=== PATIENT | male | born 1965 | race Caucasian/White ===

== ENCOUNTER 2018-02-13 13:56 | Outpatient (CLI) | payer OTHER | END 2018-02-13 13:57 | disposition home or self-care (01) | LOC: BICRAD 13:56 | PROVIDERS: ATTEND Internal Medicine | DX: Z02.71 Encounter for disability determination (principal) ==

== ENCOUNTER 2018-03-24 13:50 | Emergency (ER) | payer OTHER, SELFPAY ==
[2018-03-24 14:42] LABS: #Basophils 0.1 thou/uL (0.0-0.2); #Eosinphils 0.3 thou/uL (0.0-0.7); #Lymphocytes 1.8 thou/uL (1.20-3.40); #Monocytes 0.7 thou/uL (0.11-0.59); #Neutrophils 4.3 thou/uL (1.40-6.50); %Eosinophils 4.5 % (0.0-10.0); %Lymphocytes 24.9 % (21.0-51.0); %Monocytes 9.7 % (0.0-10.0); %Neutrophils 59.9 % (42.0-75.0); Hemoglobin 14.4 g/dL (14.0-18.0); Mean Corpuscular HGB CONC 31.6 g/dL (32.0-36.0); Mean Corpuscular Hemoglobin 29.3 pg (27.0-31.0); Mean Corpuscular Volume 92.8 fl (80.0-94.0); Platelet Count 208 thou/uL (130-400); RBC Distribution Width 13.6 % (11.5-14.5); White Blood Cell (WBC) Count 7.1 thou/uL (4.8-10.8)
[2018-03-24 15:06] LABS: ALT (SGPT) 15 U/L (8-55); AST (SGOT) 22 U/L (5-34); Albumin 3.7 g/dL (3.5-5.0); Alkaline Phosphatase 64 U/L (40-150); Anion Gap 12 mmol/L (10-20); BUN (Urea Nitrogen) 14 mg/dL (8.4-25.7); CK (CPK) 53 U/L (30-200); Calc. Creatinine Clearance 0 mL/min (70-130); Calcium 8.8 mg/dL (7.8-10.44); Carbon Dioxide 22 mmol/L (22-29); Chloride 106 mmol/L (98-107); Estimated GFR-MDRD 82; Globulin 2.6 g/dL (2.4-3.5); Glucose 78 mg/dL (70-105); Potassium 4.7 mmol/L (3.5-5.1); Protein, Total 6.3 g/dL (6.0-8.3); Sodium 135 mmol/L (136-145)
[2018-03-24 15:11] LABS: CKMB 0.4 ng/mL (0-6.6)
--- NOTE | 2018-03-24 15:15 | RAD ---
AP CHEST: Indication: History of fluid overload and shortness of breath. FINDINGS: There is cardiomegaly without pulmonary vascular congestion. No pleural effusion is evident. No acute osseous abnormality is evident. IMPRESSION: Stable cardiomegaly. No overt evidence to suggest volume overload or CHF. POS: [facility]
--- NOTE | 2018-03-24 15:20 | ULT ---
RIGHT LOWER EXTREMITY DOPPLER VENOUS ULTRASOUND: Date: 03/24/18 INDICATION: Pain and edema in the right lower extremity for 2 months. TECHNIQUE: Castro scale, color Doppler, and vascular duplex with spectral analysis was performed of the deep venou s structures of the right lower extremity. The common femoral vein, superficial femoral vein, proxima l greater saphenous vein, proximal greater profunda vein, popliteal, and posterior tibial veins were assessed. FINDINGS: Normal compression, flow, and augmentation was seen within the deep venous structures of the right lo wer extremity. IMPRESSION: No evidence of deep venous thrombosis within the right lower extremity. POS: [facility]
[2018-03-24 16:08] LABS: Troponin I Less than 0.010 ng/mL (< 0.028)
== END 2018-03-24 16:55 | disposition home or self-care (01) ==
LOC: ERS 13:50
DX: L03.115 Cellulitis of right lower limb (principal); I10 Essential (primary) hypertension; F17.220 Nicotine dependence, chewing tobacco, uncomplicated; Z71.6 Tobacco abuse counseling
CPT/HCPCS: 36415; 71045; 80053; 82553; 83880; 84484; 85025; 93005; 99406

== ENCOUNTER 2018-05-27 17:16 | Emergency (ER) | payer SELFPAY ==
[2018-05-27 19:00] LABS: #Basophils 0.1 thou/uL (0.0-0.2); #Eosinphils 0.3 thou/uL (0.0-0.7); #Lymphocytes 1.8 thou/uL (1.20-3.40); #Monocytes 0.7 thou/uL (0.11-0.59); #Neutrophils 3.9 thou/uL (1.40-6.50); %Eosinophils 4.3 % (0.0-10.0); %Lymphocytes 26.7 % (21.0-51.0); %Monocytes 10.7 % (0.0-10.0); %Neutrophils 57.3 % (42.0-75.0); Hemoglobin 14.6 g/dL (14.0-18.0); Mean Corpuscular HGB CONC 33.5 g/dL (32.0-36.0); Mean Corpuscular Hemoglobin 30.6 pg (27.0-31.0); Mean Corpuscular Volume 91.5 fL (78.0-98.0); Mean Platelet Volume 6.6 fL (7.4-10.4); Platelet Count 231 thou/uL (130-400); RBC Distribution Width 12.9 % (11.5-14.5); Red Blood Cell (RBC) Count 4.77 mill/uL (4.70-6.10); White Blood Cell (WBC) Count 6.7 thou/uL (4.8-10.8)
[2018-05-27 19:22] LABS: ALT (SGPT) 20 U/L (8-55); AST (SGOT) 28 U/L (5-34); Alkaline Phosphatase 64 U/L (40-150); Anion Gap 12 mmol/L (10-20); BUN (Urea Nitrogen) 14 mg/dL (8.4-25.7); Bilirubin, Total 0.9 mg/dL (0.2-1.2); Calc. Creatinine Clearance 0 mL/min (70-130); Calcium 9.6 mg/dL (7.8-10.44); Carbon Dioxide 28 mmol/L (22-29); Chloride 106 mmol/L (98-107); Estimated GFR-MDRD 74; Globulin 2.4 g/dL (2.4-3.5); Glucose 97 mg/dL (70-105); Potassium 5.1 mmol/L (3.5-5.1); Protein, Total 6.4 g/dL (6.0-8.3); Sodium 141 mmol/L (136-145)
--- NOTE | 2018-05-27 20:33 | RAD ---
PORTABLE AP CHEST X-RAY 05/27/18 HISTORY: Bilateral leg swelling for two weeks. COMPARISON: 03/24/18. FINDINGS: Cardiac silhouette remains enlarged. The pulmonary vasculature is within normal limits. The lungs are clear. There has been no interval change from prior exam. IMPRESSION: 1. No acute cardiopulmonary process. 2. Cardiomegaly. POS: [facility]
[2018-05-27] MEDS ORDERED: HYDROcodone/Acetaminophen 10/325 mg Tablet ONE (20:58)
[2018-05-27 21:44] LABS: CKMB 1.1 ng/mL (0-6.6); Troponin I Less than 0.010 ng/mL (< 0.028)
--- NOTE | 2018-05-27 21:48 | RAD ---
FOUR VIEWS LEFT KNEE: 05/27/18 HISTORY: Left knee pain and bilateral lower extremity swelling. COMPARISON: None available. FINDINGS: There is a prosthesis involving the medial joint compartment of the left knee. No hardware complicati on is seen. A few osseous densities overlie the knee in the region of the lateral joint compartment s uggesting small intra-articular loose bodies. There is osteoarthritis involving the left knee. No fra cture or dislocation is identified. IMPRESSION: 1. Small intra-articular loose bodies overlying the lateral joint compartment of the knee with m ild osteoarthritis present. 2. Prosthesis involving the medial joint compartment. 3. No acute osseous abnormality. POS: [facility]
--- NOTE | 2018-05-31 01:01 | EKG ---
Test Reason : Blood Pressure : / mmHG Vent. Rate : 078 BPM Atrial Rate : 069 BPM P-R Int : 000 ms QRS Dur : 094 ms QT Int : 378 ms P-R-T Axes : 000 076 043 degrees QTc Int : 430 ms Atrial fibrillation Abnormal ECG Confirmed by NATHEN ZHANG DO ([id number]), web content editor XIANG GIBSON ([id number]) on 05/31/2018 1:01:12 AM Referred By: Confirmed By:NATHEN ZHANG DO
== END 2018-05-27 22:52 | disposition home or self-care (01) ==
LOC: ERS 17:16
DX: M25.462 Effusion, left knee (principal); R60.0 Localized edema; I48.91 Unspecified atrial fibrillation; E03.9 Hypothyroidism, unspecified; I10 Essential (primary) hypertension; F17.220 Nicotine dependence, chewing tobacco, uncomplicated; Z79.82 Long term (current) use of aspirin; Z79.899 Other long term (current) drug therapy
CPT/HCPCS: 36415; 71045; 80053; 82550; 82553; 83880; 84484; 85025; 93005

== ENCOUNTER 2019-03-22 17:02 | Emergency (ER) | payer SELFPAY ==
[2019-03-22 17:31] LABS: #Basophils 0.1 thou/uL (0.0-0.2); #Eosinphils 0.5 thou/uL (0.0-0.7); #Lymphocytes 3.1 thou/uL (1.20-3.40); #Monocytes 1.1 thou/uL (0.11-0.59); #Neutrophils 5.5 thou/uL (1.40-6.50); %Basophils 1.3 % (0.0-1.0); %Eosinophils 4.4 % (0.0-10.0); %Lymphocytes 30.4 % (21.0-51.0); %Monocytes 10.6 % (0.0-10.0); %Neutrophils 53.4 % (42.0-75.0); Mean Corpuscular HGB CONC 33.8 g/dL (32.0-36.0); Mean Corpuscular Hemoglobin 33.9 pg (27.0-31.0); Mean Platelet Volume 7.3 fL (7.4-10.4); Platelet Count 241 thou/uL (130-400); RBC Distribution Width 12.7 % (11.5-14.5); Red Blood Cell (RBC) Count 4.71 mill/uL (4.70-6.10); White Blood Cell (WBC) Count 10.3 thou/uL (4.8-10.8)
[2019-03-22 17:56] LABS: ALT (SGPT) 20 U/L (8-55); AST (SGOT) 31 U/L (5-34); Albumin 4.4 g/dL (3.5-5.0); Alkaline Phosphatase 69 U/L (40-150); Anion Gap 15 mmol/L (10-20); BUN (Urea Nitrogen) 17 mg/dL (8.4-25.7); CK (CPK) 65 U/L (30-200); Calc. Creatinine Clearance 0 mL/min (70-130); Calcium 9.4 mg/dL (7.8-10.44); Carbon Dioxide 25 mmol/L (22-29); Chloride 99 mmol/L (98-107); Estimated GFR-MDRD 59; Globulin 2.6 g/dL (2.4-3.5); Glucose 81 mg/dL (70-105); Sodium 134 mmol/L (136-145)
--- NOTE | 2019-03-22 18:05 | RAD ---
2 views of the chest: 03/22/2019 COMPARISON: 05/26/2017 HISTORY: Chest pain and shortness of breath FINDINGS: Stable prominence of the cardiac silhouette. Heart and mediastinal contours are unchanged. No pneumothorax, pleural fluid, focal consolidation, or alveolar edema. IMPRESSION: No acute findings.
== END 2019-03-22 19:01 | disposition home or self-care (01) ==
LOC: ERS 17:02
DX: I48.91 Unspecified atrial fibrillation (principal); I10 Essential (primary) hypertension; F32.9 Major depressive disorder, single episode, unspecified; F17.220 Nicotine dependence, chewing tobacco, uncomplicated; Z79.82 Long term (current) use of aspirin; Z79.899 Other long term (current) drug therapy
CPT/HCPCS: 36415; 71046; 80053; 82550; 83880; 84484; 85025; 93005

== ENCOUNTER 2019-05-23 18:16 | Inpatient (IN) | payer SELFPAY ==
[~2019-05-23 18:16] MED LIST: Iopamidol 370 76% 100 ML VIAL ONE
[2019-05-23 18:51] LABS: #Basophils 0.1 thou/uL (0.0-0.2); #Eosinphils 0.2 thou/uL (0.0-0.7); #Lymphocytes 2.4 thou/uL (1.20-3.40); #Monocytes 0.8 thou/uL (0.11-0.59); #Neutrophils 5.4 thou/uL (1.40-6.50); %Basophils 1.2 % (0.0-1.0); %Eosinophils 2.6 % (0.0-10.0); %Lymphocytes 26.8 % (21.0-51.0); %Monocytes 9.2 % (0.0-10.0); %Neutrophils 60.2 % (42.0-75.0); Hemoglobin 15.7 g/dL (14.0-18.0); Mean Corpuscular HGB CONC 34.3 g/dL (32.0-36.0); Mean Corpuscular Hemoglobin 32.8 pg (27.0-31.0); Mean Corpuscular Volume 95.7 fL (78.0-98.0); Mean Platelet Volume 6.7 fL (7.4-10.4); Platelet Count 239 thou/uL (130-400); RBC Distribution Width 13.2 % (11.5-14.5); Red Blood Cell (RBC) Count 4.78 mill/uL (4.70-6.10)
[2019-05-23 19:05] LABS: ALT (SGPT) 23 U/L (8-55); AST (SGOT) 37 U/L (5-34); Albumin 4.3 g/dL (3.5-5.0); Alkaline Phosphatase 65 U/L (40-150); Anion Gap 13 mmol/L (10-20); BUN (Urea Nitrogen) 15 mg/dL (8.4-25.7); Bilirubin, Total 1.9 mg/dL (0.2-1.2); Calc. Creatinine Clearance 0 mL/min (70-130); Calcium 9.4 mg/dL (7.8-10.44); Carbon Dioxide 29 mmol/L (22-29); Chloride 75 mmol/L (98-107); Estimated GFR-MDRD 80; Globulin 2.5 g/dL (2.4-3.5); Glucose 107 mg/dL (70-105); Lipase 62 U/L (8-78); Protein, Total 6.8 g/dL (6.0-8.3)
[2019-05-23 19:12] LABS: Sodium 113 mmol/L (136-145)
[2019-05-23] MEDS ORDERED: Ondansetron PF 4 MG/2 ML Vial ONE (19:49)
[2019-05-23] MEDS ORDERED: Pantoprazole 40 MG VIAL ONE (19:49)
--- NOTE | 2019-05-23 20:15 | CT ---
CT ABDOMEN AND PELVIS WITH CONTRAST: HISTORY: Abdominal pain. COMPARISON: None. FINDINGS: Mild volume loss of the lung bases. Liver: Unremarkable. Gallbladder: Cholelithiasis. Pancreas: Unremarkable. Spleen: Unremarkable. Adrenal glands: Unremarkable. Kidneys: No renal calculus or acute obstruction. No solid or cystic mass. Bowel: Surgical suture within the bowel of the right lower quadrant. There is herniation of small b owel within a large right inguinal hernia and colon within a large left inguinal hernia. No associated inflammation or pathologic dilatation is seen, within limitations of technique, as enteric contrast was not administered. There is evidence of gastric surgery. Urinary Bladder: Moderate distention. Adenopathy: No adenopathy within the abdomen or pelvis. Free Air: No free air. Ascites: No ascites. Osseous structures: No acute osseous abnormalities. Intraosseous hemangioma at the presumed T10 lev el. Vascular calcification present. IMPRESSION: Bilateral large inguinal hernias containing nonobstructed small bowel on the right, and nonobstructiv e colon on the left. Transcribed Date/Time: 05/23/2019 8:31 PM
[2019-05-23 20:20] LABS: Anion Gap 16 mmol/L (10-20); BUN (Urea Nitrogen) 16 mg/dL (8.4-25.7); Calc. Creatinine Clearance 0 mL/min (70-130); Calcium 9.6 mg/dL (7.8-10.44); Carbon Dioxide 28 mmol/L (22-29); Chloride 75 mmol/L (98-107); Estimated GFR-MDRD Greater than 90; Glucose 88 mg/dL (70-105); Potassium 3.7 mmol/L (3.5-5.1)
[2019-05-23 20:23] LABS: Sodium 115 mmol/L (136-145)
[2019-05-23 21:40] LABS: Bacteria/HPF None Seen HPF (None Seen); Bilirubin Negative (Negative); Blood, Urine Negative (Negative); Clarity Clear (Clear); Glucose, Urine (Dipstick) Normal (Negative); Leukocyte Negative Leu/uL (Negative); Nitrite Negative (Negative); Protein, Urine (Dipstick) Negative (Neg-Trace); RBC/HPF 0-3 HPF (0-3); Squamous Epithelial None Seen HPF (0-3); Urobilinogen Normal mg/dL (Less than 2); WBC/HPF 0-3 HPF (0-3)
[2019-05-23] MEDS ORDERED: Ondansetron PF 4 MG/2 ML Vial IVP PRN (22:06)
[2019-05-23] MEDS ORDERED: Ondansetron ODT 4 MG TAB SL PRN (22:06)
[2019-05-23 22:13] LABS: Magnesium 2.5 mg/dL (1.6-2.6)
[2019-05-23] MEDS ORDERED: Dextrose 5 % And 0.9 % NaCl 1,000 ML IV SCH ×2 (22:15→23:46)
[2019-05-23] MEDS ORDERED: Pantoprazole 40 MG VIAL IVP SCH (23:30)
[2019-05-23] MEDS ORDERED: Sodium Chloride 0.9% (PF) 10 ML VIAL FS PRN (23:33)
[2019-05-23 23:54] LABS: Anion Gap 13 mmol/L (10-20); BUN (Urea Nitrogen) 15 mg/dL (8.4-25.7); Calc. Creatinine Clearance 176 mL/min (70-130); Calcium 9.3 mg/dL (7.8-10.44); Carbon Dioxide 31 mmol/L (22-29); Chloride 79 mmol/L (98-107); Estimated GFR-MDRD 85; Glucose 88 mg/dL (70-105); Potassium 5.2 mmol/L (3.5-5.1)
[2019-05-24] LABS: Sodium 118 mmol/L (136-145)
[2019-05-24] MEDS ORDERED: Sodium Chloride 0.45% 1,000 ML IV SCH (01:15)
[2019-05-24] MEDS ORDERED: Ondansetron ODT 4 MG TAB PO PRN (01:57)
[2019-05-24] MEDS ORDERED: Ondansetron PF 4 MG/2 ML Vial IVP PRN (01:57)
[2019-05-24] MEDS ORDERED: Calcium Carbonate 500 MG ChewTAB PO PRN (01:57)
--- NOTE | 2019-05-24 02:03 | HP ---
The patient was seen and examined on May 23, 2019. CHIEF COMPLAINT: Generalized weakness with persistent nausea. HISTORY OF PRESENT ILLNESS: The patient is a 53-year-old white male with gastric bypass in 2007, presented to the emergency room with above complaints. Over the last 1 month time, the patient has generalized abdominal pain that is progressively getting worse. Over the last week, he has persistent nausea with dry heaving. He has been feeling generally weak and fatigued over the last 1 week. He did not have any bowel movements over the last 2 to 3 days. Usually, he has 1 to 2 bowel movements on a daily basis. Over the last 2 to 3 days, the patient is having intermittent diaphoresis especially while or after eating. He has also lost his appetite. He has a history of peptic ulcer disease in the past. He is currently not on PPIs. He takes Pepcid 20 mg twice a day. He denies any chest pain, palpitations, or syncope. No hematemesis, melena, hematochezia, or jaundice reported. PAST MEDICAL HISTORY: 1. Chronic atrial fibrillation not on anticoagulation due to peptic ulcer disease and GI bleeding in the past. 2. History of SVT, status post ablation in the past. 3. Gastric bypass. 4. Hypertension. 5. History of gastrointestinal bleeding. 6. Gout. 7. Benign prostatic hypertrophy. 8. Depression. 9. Chronic pain syndrome, started on Cymbalta earlier this year. 10. Obstructive sleep apnea, resolved after weight loss. 11. Anxiety. 12. Hypothyroidism. 13. Chronic venous insufficiency in bilateral lower extremity. PAST SURGICAL HISTORY: 1. Gastric bypass. 2. Left knee replacement. 3. Carpal tunnel surgery on the right. 4. Eye surgery. 5. Back surgery. 6. Appendectomy. 7. Tonsillectomy. ALLERGIES: THE PATIENT IS ALLERGIC TO AUGMENTIN THAT CAUSES SHORTNESS OF BREATH, NEOSPORIN CAUSES RASH, ASPIRIN DUE TO HISTORY OF GI BLEEDING, CLINDAMYCIN. CURRENT HOME MEDICATION: 1. Pepcid 20 mg b.i.d. 2. Aspirin 81 mg daily. 3. Lopressor 100 mg b.i.d. 4. Levothyroxine 100 mcg daily. 5. Lasix 20 mg as needed. 6. Cymbalta 60 mg daily. SOCIAL HISTORY: The patient denies current use of smoking. He lives at home with his spouse. He continues to use smokeless tobacco. FAMILY HISTORY: Father with prostate cancer. Mother with heart disease. One sister with diabetes. REVIEW OF SYSTEMS: All other review of systems was reviewed and were found negative. PHYSICAL EXAMINATION: VITAL SIGNS: Temperature 97.9, respirations of 18, pulse of 64, blood pressure of 138/87, O2 saturation 95% on room air. GENERAL: A 53-year-old male with generalized weakness. HEENT: Head atraumatic, normocephalic. Sclerae anicteric. Moist mucous membrane. No oral lesion. NECK: Supple. No JVD appreciated. No carotid bruit. LUNGS: Clear to auscultation bilaterally. No wheezing, rales or rhonchi. HEART: S1 and S2 present. Irregularly irregular. No heaves or pulsation. ABDOMEN: Soft, nontender. Bowel sounds present. No rebound or guarding. No costovertebral angle tenderness. EXTREMITIES: No edema or calf tenderness. NEUROLOGIC: Grossly nonfocal. Moves all 4 extremities. Power was 5/5 in all extremities. SKIN: Warm and dry. LYMPH NODES: No palpable lymph nodes in the neck. PSYCHIATRY: Alert, awake, and oriented x3. PERIPHERAL VASCULAR: Radial pulses palpable bilaterally. MUSCULOSKELETAL: No joint swelling or tenderness. LABORATORY FINDINGS: Sodium 113 with potassium 4.0, chloride 75, bicarb 29, BUN 15, and creatinine 0.97. Total bilirubin of 1.9, AST 37, TSH 1.92. Cortisone was 3.3 at 9:45 p.m. WBC 9.0, hemoglobin 15.7, platelet count 239. Urine sodium was less than 20. CT scan of the abdomen and pelvis by my review showed bilateral large inguinal hernias containing non-obstructed small bowel on the right and nonobstructive colon on the left. IMPRESSION: 1. Generalized weakness, probably secondary to significant hyponatremia. 2. Hyponatremia probably secondary to poor oral intake and persistent nausea. His sodium was 113. Osmolality is pending at this time. 3. Abdominal pain of 1-month duration of unclear etiology. CT scan of the abdomen showed bilateral large inguinal hernias containing nonobstructive small bowel on the right and nonobstructive colon on the left. 4. Persistent nausea, vomiting, and poor oral intake with history of peptic ulcer disease. The patient denies any hematemesis or melena. 5. Morbid obesity with a BMI of 41. 6. Abnormal LFTs of unclear etiology. 7. Chronic kidney disease, stage 2. 8. Chronic atrial fibrillation not on anticoagulation due to gastrointestinal bleeding, has gastrointestinal bleeding in the past. 9. Hypothyroidism. 10. Hypertension. 11. Gastroesophageal reflux disease. 12. Depression, mild, stable. 13. Chronic pain syndrome. 14. Mild intermittent asthma. 15. History of obstructive sleep apnea in the past, resolved after weight loss. 16. Anxiety. 17. Degenerative joint disease. 18. Chronic pain syndrome, followed by Dr. Fraser. 19. Chronic diastolic heart failure. 20. Chronic venous insufficiency. PLAN: 1. The patient will be monitored on the telemetry unit. We will monitor labs every 4 hours. We will consult Nephrology in a.m. We will start him on IV PPIs. Clear liquid diet. Consult Gastroenterology. Change IV fluid to D5 half NS at 70 mL an hour. We will await serum and urine osmolality. We will recheck cortisol level at 8:00 a.m. His urine sodium was less than 20. His TSH was normal. We will continue levothyroxine, metoprolol. Hold Cymbalta for now due to possible SIADH contributing to hyponatremia. His BUN and creatinine were normal on admission. 2. Code status, full code. 3. Please note that the patient was seen and examined on May 23, 2019. Plan was discussed with the patient and the family in detail, they stated understanding. Job ID: [id number]
[2019-05-24 04:52] LABS: ALT (SGPT) 21 U/L (8-55); AST (SGOT) 32 U/L (5-34); Albumin 3.9 g/dL (3.5-5.0); Alkaline Phosphatase 63 U/L (40-150); Anion Gap 12 mmol/L (10-20); BUN (Urea Nitrogen) 15 mg/dL (8.4-25.7); Bilirubin, Total 1.6 mg/dL (0.2-1.2); Calc. Creatinine Clearance 169 mL/min (70-130); Calcium 8.8 mg/dL (7.8-10.44); Carbon Dioxide 28 mmol/L (22-29); Chloride 84 mmol/L (98-107); Estimated GFR-MDRD 81; Glucose 80 mg/dL (70-105); Potassium 4.1 mmol/L (3.5-5.1); Protein, Total 5.9 g/dL (6.0-8.3); Sodium 120 mmol/L (136-145)
[2019-05-24] MEDS: Levothyroxine Sodium 100 MCG TAB PO SCH (05:26)
[2019-05-24] MEDS ORDERED: Dextrose 5% in Water 1,000 ML IV SCH (06:15)
[2019-05-24 08:29] LABS: Anion Gap 14 mmol/L (10-20); BUN (Urea Nitrogen) 13 mg/dL (8.4-25.7); Calc. Creatinine Clearance 156 mL/min (70-130); Carbon Dioxide 26 mmol/L (22-29); Chloride 85 mmol/L (98-107); Estimated GFR-MDRD 74; Glucose 141 mg/dL (70-105); Potassium 3.8 mmol/L (3.5-5.1); Sodium 121 mmol/L (136-145)
[2019-05-24] MEDS: Sodium Chloride 0.9% 1,000 ML IV SCH ×2 (09:32→17:21)
[2019-05-24] MEDS: Metoprolol Tartrate 100 MG TAB PO SCH ×2 (09:32→19:59)
[2019-05-24] MEDS: Pantoprazole 40 MG VIAL IVP SCH ×2 (09:32→19:59)
--- NOTE | 2019-05-24 09:44 | PDOC.PN ---
- Subjective Encounter Start Date: 05/24/19 Encounter Start Time: 09:42 Subjective: no N/V. appetite good - Objective Resuscitation Status - Order Detail: 05/24/19 01:52 Resuscitation Status Routine Resuscitation Status: FULL: Full Resuscitation MAR Reviewed: Yes Vital Signs & Weight: Vital Signs (12 hours) Temp Pulse Ox 05/24/19 07:53 98 05/24/19 07:09 97.8 F 05/24/19 03:26 97.0 F L 05/24/19 00:00 98.1 F 05/23/19 22:26 100 05/23/19 22:05 97.6 F Weight Weight 302 lb 6.4 oz Most Recent Monitor Data Heart Rate from ECG 83 NIBP 124/93 NIBP BP-Mean 103 Respiration from ECG 15 SpO2 98 I&O: 05/23/19 05/24/19 05/25/19 06:59 06:59 06:59 Intake Total 1088 Output Total 2150 Balance -1062 Result Diagrams: 05/23/19 18:36 05/24/19 08:01 Phys Exam - Physical Examination Neck: no JVD Respiratory: clear to auscultation bilateral Cardiovascular: RRR, no significant murmur Gastrointestinal: soft, positive bowel sounds Musculoskeletal: no edema Dx/Plan (1) Hypokalemia Code(s): E87.6 - HYPOKALEMIA Status: Acute (2) Nausea & vomiting Code(s): R11.2 - NAUSEA WITH VOMITING, UNSPECIFIED Status: Acute Qualifiers: Vomiting type: unspecified Vomiting Intractability: unspecified Qualified Code(s): R11.2 - Nausea with vomiting, unspecified (3) Atrial fibrillation with rapid ventricular response Code(s): I48.91 - UNSPECIFIED ATRIAL FIBRILLATION Status: Chronic (4) Hypertension Code(s): I10 - ESSENTIAL (PRIMARY) HYPERTENSION Status: Chronic Qualifiers: Hypertension type: essential hypertension Qualified Code(s): I10 - Essential (primary) hypertension - Plan cont iv saline, serial BMP -: cont to hold cymbalta -: cortisol normal, no evidence for addisons dis * .
[2019-05-24 12:09] LABS: Anion Gap 14 mmol/L (10-20); BUN (Urea Nitrogen) 13 mg/dL (8.4-25.7); Calc. Creatinine Clearance 178 mL/min (70-130); Calcium 8.8 mg/dL (7.8-10.44); Carbon Dioxide 27 mmol/L (22-29); Chloride 86 mmol/L (98-107); Estimated GFR-MDRD 86; Glucose 105 mg/dL (70-105); Potassium 3.8 mmol/L (3.5-5.1); Sodium 123 mmol/L (136-145)
--- NOTE | 2019-05-24 13:32 | CON ---
DATE OF CONSULTATION: SERVICE: Renal Medicine, HISTORY OF PRESENT ILLNESS: Mr. Wiggins is a 53-year-old white male, who was admitted for generalized malaise with persistent nausea and vomiting. Hoping this, I asked his alcohol intake and he tells me he only takes 2 beers per night. He denies any alcohol abuse. During the initial evaluation, he was noted to be hyponatremic. Review of his chart suggests this is an acute hyponatremia. We are now being consulted for further management of his acute hyponatremia. On close questioning, the patient was having intermittent diaphoresis after eating the last several days. He has also decreased p.o. intake for the last several days. REVIEW OF SYSTEMS: Positive for nausea and vomiting. Decreased appetite. Decreased energy level. No hematemesis. No melena. No fever or chills. No hematochezia. No dysuria. No urinary frequency. Positive for abdominal pain. No headache. No shortness of breath. No chest pain. Positive for joint pains. PAST MEDICAL HISTORY: History of chronic AFib, currently not on anticoagulation due to peptic ulcer disease and GI bleeding in the past; status post SVT; status post morbid obesity; hypertension; status post GI bleed; gout; BPH; depression; chronic pain syndrome; obstructive sleep apnea; hypothyroidism; and chronic venous insufficiency. PAST SURGICAL HISTORY: Status post upper GI endoscopy, status post left knee replacement, status post gastric bypass, status post carpal tunnel surgery on the right, status post eye surgery, status post back surgery, status post left shoulder joint surgery, and status post tonsillectomy. ALLERGIES: AUGMENTIN, NEOSPORIN, ASPIRIN, AND CLINDAMYCIN. HOME MEDICATIONS: Included; 1. Pepcid 20 mg p.o. b.i.d. 2. Aspirin 81 mg daily. 3. Lopressor 100 mg p.o. b.i.d. 4. Levothyroxine 100 mcg tablet daily. 5. Lasix 20 mg subcu daily p.r.n. 6. Cymbalta 60 mg tablet once a day. SOCIAL HISTORY: The patient lives in [place]. . Retired sprinkler truck driver/automated teller manager. One child, currently medically disabled. Education, GED. No smoking. Alcohol, 2 beers per night. No IV drug abuse. Status post blood transfusion. TRAUMA: None. IMMUNIZATIONS: Unknown. HOSPITALIZATIONS: Please see past medical history. FAMILY HISTORY: No family history of ESRD. PHYSICAL EXAMINATION: VITAL SIGNS: Blood pressure is noted at 138/87, heart rate 64, respiratory rate 18, temperature 97.9, and pulse ox 95% on room air. GENERAL: He is sleepy, but arousable, comfortable, can follow commands, can converse with me. SKIN: Adequate turgor. HEENT: Pinkish conjunctivae. Anicteric sclerae. NECK: No neck mass. No carotid bruits. No JVD. CHEST: No deformities. LUNGS: Clear breath sounds. No wheezing. No crackles. HEART: Normal sinus rhythm. No murmurs. No gallops. No rubs. ABDOMEN: Globular, soft, and nontender. No masses. EXTREMITIES: No edema. No deformities. NEUROLOGICAL: Moving all extremities. No asterixis. No ataxia. No tremors. LABORATORY DATA: Laboratories of May 24, 2019; sodium 121, chloride 85, carbon dioxide 26, potassium 3.8, BUN 13, creatinine 1.05, glucose is 141, and calcium is 9. On May 23, 2019; serum sodium was noted to be at 115. Urinalysis, relatively benign. No protein. No red cells. Urine sodium is less than 20. CT of the abdomen and pelvis showed bilateral large inguinal hernia. No obstruction noted. ASSESSMENT AND PLAN: 1. Acute hyponatremia - examined history and urine sodium suggests he may simply have hypovolemic hyponatremia and this is noted to be acute in nature. I would probably give volume repletion normal saline at 100 mL/h. Continue to monitor serum sodium. I do not think there is any concern for the relatively rapid correction since this is acute in nature rather than chronic. Agree to hold off furosemide with this patient. Overall, continue current management. Continue basic metabolic profile every 4 hours. 2. Nausea and vomiting, unclear etiology. Alcohol intake may be playing a role. The patient is advised on regarding alcohol intake. Thank you for the consult. We will continue to follow. Job ID: [id number]
[2019-05-25] MEDS: Acetaminophen 325 MG TAB PO PRN (03:30)
[2019-05-25] MEDS: Sodium Chloride 0.9% 1,000 ML IV SCH ×2 (03:31→14:39)
[2019-05-25] MEDS: Levothyroxine Sodium 100 MCG TAB PO SCH (06:05)
[2019-05-25] MEDS: Pantoprazole 40 MG VIAL IVP SCH ×2 (09:12→21:45)
[2019-05-25] MEDS: Metoprolol Tartrate 100 MG TAB PO SCH ×2 (09:12→21:43)
[2019-05-25 09:38] LABS: BUN (Urea Nitrogen) 7 mg/dL (8.4-25.7); Calc. Creatinine Clearance 192 mL/min (70-130); Calcium 8.5 mg/dL (7.8-10.44); Carbon Dioxide 29 mmol/L (22-29); Chloride 90 mmol/L (98-107); Estimated GFR-MDRD Greater than 90; Glucose 118 mg/dL (70-105); Potassium 3.5 mmol/L (3.5-5.1); Sodium 125 mmol/L (136-145)
[2019-05-25 10:24] LABS: Anion Gap 10 mmol/L (10-20)
--- NOTE | 2019-05-25 10:33 | PRG ---
DATE OF SERVICE: 05/25/2019 SUBJECTIVE: Mr. Wiggins is a 53-year-old white male, who was admitted for generalized malaise/weakness with persistent nausea. We are following up this patient for his acute hyponatremia. We felt that this was related to hypovolemic hyponatremia due to history of diuretic intake, nausea, vomiting, decreased p.o. intake. He is being empirically treated with normal saline. His serum sodium is slowly improving. No other complaints today. He still feels tired. OBJECTIVE: VITAL SIGNS: Blood pressure is 136/102, heart rate 83, respiratory rate 16, pulse ox 97%, temperature 97.6. GENERAL: The patient is sleepy, but arousable, comfortable, not in distress, obese. SKIN: Adequate turgor. HEENT: Pinkish conjunctivae. Anicteric sclerae. NECK: No neck mass. No carotid bruits. No JVD. CHEST: No deformities. LUNGS: Clear breath sounds. HEART: Normal sinus rhythm. No murmur. No gallops. No rubs. ABDOMEN: Globular, soft, nontender. No masses. EXTREMITIES: No edema. No deformities. MEDICATIONS: Medications of May 25, 2019, reviewed. LABORATORY DATA: Laboratories of May 24, 2019; cortisol level is 13. May 24, 2019; serum sodium was 123, potassium 3.8, chloride 86, carbon dioxide 27, BUN 13, creatinine 0.92, calcium 8.8. Basic met of May 25, 2019, pending. ASSESSMENT AND PLAN: 1. Acute hyponatremia secondary to hypovolemic hyponatremia-urine sodium was noted to be less than 20. Continue volume repletion. Please note, in the last one day the serum sodium is slowly improving. Continue current management. Continue volume repletion with normal saline. There is no indication for any hypertonic saline. 2. Volume depletion, currently on normal saline. Continue to hold off diuretics. 3. We will recheck basic met in a.m. Job ID: [id number]
--- NOTE | 2019-05-25 10:50 | PDOC.PN ---
- Subjective Encounter Start Date: 05/25/19 Encounter Start Time: 10:47 Subjective: much improved, no nausea, vomiting - Objective Resuscitation Status - Order Detail: 05/24/19 01:52 Resuscitation Status Routine Resuscitation Status: FULL: Full Resuscitation MAR Reviewed: Yes Vital Signs & Weight: Vital Signs (12 hours) Temp Pulse Ox 05/25/19 10:27 97.0 F L 05/25/19 08:00 99 05/25/19 07:17 97.6 F 05/25/19 03:12 97.8 F Weight Admit Weight 302 lb 6.4 oz Weight 304 lb 7.334 oz Most Recent Monitor Data Heart Rate from ECG 65 NIBP 148/104 NIBP BP-Mean 118 Respiration from ECG 15 SpO2 97 I&O: 05/24/19 05/25/19 05/26/19 06:59 06:59 06:59 Intake Total 1088 1700 Output Total 2150 1700 Balance -1062 0 Result Diagrams: 05/23/19 18:36 05/25/19 08:41 Phys Exam - Physical Examination Neck: no JVD Respiratory: clear to auscultation bilateral Cardiovascular: RRR, no significant murmur Gastrointestinal: soft, positive bowel sounds Musculoskeletal: no edema Dx/Plan (1) Hypokalemia Code(s): E87.6 - HYPOKALEMIA Status: Acute (2) Nausea & vomiting Code(s): R11.2 - NAUSEA WITH VOMITING, UNSPECIFIED Status: Acute Qualifiers: Vomiting type: unspecified Vomiting Intractability: unspecified Qualified Code(s): R11.2 - Nausea with vomiting, unspecified (3) Atrial fibrillation with rapid ventricular response Code(s): I48.91 - UNSPECIFIED ATRIAL FIBRILLATION Status: Chronic (4) Hypertension Code(s): I10 - ESSENTIAL (PRIMARY) HYPERTENSION Status: Chronic Qualifiers: Hypertension type: essential hypertension Qualified Code(s): I10 - Essential (primary) hypertension - Plan cont NS, serial BMP, advance diet * .
[2019-05-26] MEDS: Sodium Chloride 0.9% 1,000 ML IV SCH ×3 (01:20→21:05)
--- NOTE | 2019-05-26 04:58 | CON ---
DATE OF CONSULTATION: 05/25/2019 CHIEF COMPLAINT: Abdominal pain and nausea. HISTORY OF PRESENT ILLNESS: Mr. Wiggins is a 53-year-old man, who has had a prior gastric bypass surgery, who for the last month has had persistent nausea and abdominal pain. He complains of nausea, followed by burning lower abdominal pain shortly after eating. He develops dry heaves with that. He really does not vomit much of the food. He does not believe he has lost weight with this. He has had no hematemesis. He has a bowel movement most days once a day without any blood in the stool or diarrhea or constipation. He has never had a colonoscopy, but he has had multiple upper endoscopies and states he has had peptic ulcer diagnosed by endoscopy. In the past, he had a peptic ulcer that required cautery. PAST MEDICAL HISTORY: Atrial fibrillation. He has not been on anticoagulation reportedly due to past peptic ulcer disease. Hypertension, BPH, gout, hypothyroidism, lower extremity venous insufficiency, chronic pain syndrome, and obstructive sleep apnea. PAST SURGICAL HISTORY: Gastric bypass, knee replacement, carpal tunnel surgery, back surgery, appendectomy, and tonsillectomy. FAMILY HISTORY: Negative for GI malignancies. SOCIAL HISTORY: Positive for dipping smokeless tobacco. No drugs. No smoking. He drinks up to 2 to 3 beers per night. ALLERGIES: AMOXICILLIN, BACITRACIN, LEVOFLOXACIN, NEOMYCIN, AUGMENTIN, AND IBUPROFEN. CURRENT INPATIENT MEDICATIONS: Include, 1. Pantoprazole. 2. Metoprolol. 3. Levothyroxine. 4. Acetaminophen. As an outpatient, he has been on, 1. Metoprolol. 2. Levothyroxine. 3. Famotidine. 4. Furosemide. 5. Aspirin. 6. Duloxetine. 7. He states that he takes Prilosec as an outpatient, but maybe he takes it once per week and often forgets to take it. 8. He also frequently forgets to take the levothyroxine. REVIEW OF SYSTEMS: Negative x10 systems reviewed except as stated in the history of present illness. PHYSICAL EXAMINATION: VITAL SIGNS: Temperature 96.7, pulse 85, and blood pressure 137/99. GENERAL: He is in no acute distress. Alert and oriented x3. HEENT: Eyes have no scleral icterus. Oropharynx is clear without lesions. No cervical or supraclavicular lymphadenopathy. LUNGS: Clear to auscultation bilaterally. HEART: S1 and S2 without murmur. Regular. ABDOMEN: Soft, nontender, and nondistended. Bowel sounds are present. EXTREMITIES: Trace lower extremity edema. NEURO: Cranial nerves are grossly intact. LABORATORY DATA: White blood cell count 9.0, hemoglobin 15.7, and platelets 239. Sodium 125, creatinine 0.86, bilirubin 1.6, AST 32, ALT 21, alkaline phosphatase 63, albumin 3.9, and cortisol 13. IMPRESSION: 1. Chronic nausea and vomiting, status post gastric bypass years ago and history of peptic ulcer. It has been years since his last endoscopy. We will plan to evaluate this further with endoscopy. He is only taking his Prilosec around once per week. 2. Lower abdominal burning pain after eating. He does have inguinal hernias bilaterally, but this does not seem to be causing obstructive-type symptoms. 3. Hyponatremia, believed to be secondary to hypervolemic hyponatremia, being followed by Dr. Fletcher with Nephrology. 4. The patient has never had a colonoscopy. He would not tolerate a bowel prep at this time. RECOMMENDATIONS: 1. Plan upper endoscopy tomorrow to rule out peptic ulcer and evaluate surgical anastomosis. Evaluate for cause of his nausea and vomiting and postprandial abdominal pain. 2. Proton pump inhibitor IV. 3. He should eventually undergo colonoscopy as an outpatient in the future for screening. Job ID: [id number]
[2019-05-26] MEDS: Levothyroxine Sodium 100 MCG TAB PO SCH (05:37)
[2019-05-26] MEDS: Metoprolol Tartrate 100 MG TAB PO SCH ×2 (05:37→20:51)
[2019-05-26] MEDS: Pantoprazole 40 MG VIAL IVP SCH ×2 (05:37→20:51)
[2019-05-26 06:34] LABS: Anion Gap 10 mmol/L (10-20); BUN (Urea Nitrogen) 7 mg/dL (8.4-25.7); Calc. Creatinine Clearance 191 mL/min (70-130); Calcium 8.8 mg/dL (7.8-10.44); Carbon Dioxide 28 mmol/L (22-29); Chloride 97 mmol/L (98-107); Estimated GFR-MDRD Greater than 90; Glucose 88 mg/dL (70-105); Sodium 131 mmol/L (136-145)
--- NOTE | 2019-05-26 09:19 | PRG ---
DATE OF SERVICE: 05/26/2019 SUBJECTIVE: Mr. Nasir Wiggins is a 53-year-old white male, who was admitted for generalized weakness. He was seen by the Renal Service for his acute hyponatremia, which was related to decreased volume. He has been given normal saline, slowly improving. He has been having nausea and abdominal pain. GI has evaluated the patient. He is scheduled for an upper GI endoscopy. No other complaints today. OBJECTIVE: VITAL SIGNS: Blood pressure is 141/90, heart rate 68, respiratory rate 18, temperature 98, and pulse ox 97%. GENERAL: Awake, alert, comfortable, not in distress. SKIN: Adequate turgor. HEENT: He has pinkish conjunctivae. Anicteric sclerae. No neck mass. No carotid bruits. No JVD. CHEST: No deformities. LUNGS: Clear breath sounds. HEART: Normal sinus rhythm. No murmurs. No gallops. No rubs. ABDOMEN: Globular, soft, and nontender. No masses. EXTREMITIES: No edema. No deformities. MEDICATIONS: Medications of May 26, 2019, were reviewed. LABORATORY DATA: Laboratories of May 26, 2019: Sodium 131, potassium 4, chloride 97, carbon dioxide 28, BUN 7, creatinine 0.87, and calcium 8.8. ASSESSMENT AND PLAN: 1. Acute hyponatremia - improving overtime. Serum sodium is now at its best value of 131. Continue IV hydration. No indication for any hypertonic saline. 2. Nausea and vomiting/abdominal pain - for upper GI endoscopy this morning. 3. Overall, agree with current management. Due to the improved serum sodium, we will be signing off. Please recall. Please finish IV fluid until serum sodium reaches normal values. Job ID: [id number]
[2019-05-26 10:37] VITALS: BMI 41.5
[2019-05-26] MEDS ORDERED: PROPOFOL 200 MG/20 ML VIAL ONE (11:15)
[2019-05-26] MEDS ORDERED: Lidocaine 1% PF 5 ML VIAL ONE (11:15)
[2019-05-26] MEDS ORDERED: Promethazine HCl 25 MG/ML VIAL SLOW IVP PRN (17:05)
[2019-05-26] MEDS ORDERED: Ondansetron HCl/PF 4 MG/2 ML Vial IVP PRN (17:05)
[2019-05-26] MEDS ORDERED: Promethazine HCl 25 MG/ML VIAL IM PRN (17:05)
[2019-05-26] MEDS ORDERED: Fentanyl 100 MCG/2 ML VIAL ONE (17:24)
[2019-05-26] MEDS ORDERED: hydrALAZINE 20 MG/ML VIAL SLOW IVP SCH (18:30)
[2019-05-26 20:00] VITALS: TEMP 97.4
[2019-05-26] MEDS: Acetaminophen 325 MG TAB PO PRN (20:51)
--- NOTE | 2019-05-26 22:17 | OP ---
DATE OF PROCEDURE: 05/26/2019 PROCEDURE PERFORMED: Esophagogastroduodenoscopy with biopsy. PREOPERATIVE DIAGNOSES: Abdominal pain, nausea, and vomiting. POSTOPERATIVE DIAGNOSES: 1. Normal esophageal mucosa, no esophagitis seen. 2. The gastric pouch is small, showed shallow ulcerations, mucosal erythema and edema, anastomotic area. 3. Two large ulcerations in the small bowel just below the anastomotic area. The ulcers are very large and deep. Biopsy obtained from the area. DESCRIPTION OF PROCEDURE: The patient was placed on his left lateral position and was given sedation by Anesthesia Department. A Pentax video gastroscope under direct vision passed down the oropharynx, past the GE junction. The esophageal mucosa appeared normal. There was no esophageal stricture seen. There was a small gastric remnant from gastric bypass. had some shallow ulceration and also mucosal edema and erythema. The scope advanced small intestine. Just below the anastomotic area, the patient found to have 2 large ulcerations. The ulcers appeared chronic and very deep and large. Distal small bowel showed no pathology. Biopsy obtained from the anastomotic area. The scope was removed. RECOMMENDATIONS: 1. PPI twice a day. 2. Await the biopsy report. 3. Diet as tolerated. Job ID: [id number]
[2019-05-27] MEDS: Sodium Chloride 0.9% 1,000 ML IV SCH (02:25)
[2019-05-27] MEDS: Levothyroxine Sodium 100 MCG TAB PO SCH (05:36)
[2019-05-27 07:01] LABS: Anion Gap 11 mmol/L (10-20); BUN (Urea Nitrogen) 6 mg/dL (8.4-25.7); Calc. Creatinine Clearance 178 mL/min (70-130); Calcium 9.4 mg/dL (7.8-10.44); Carbon Dioxide 28 mmol/L (22-29); Chloride 97 mmol/L (98-107); Estimated GFR-MDRD 86; Glucose 91 mg/dL (70-105); Potassium 4.2 mmol/L (3.5-5.1); Sodium 132 mmol/L (136-145)
[2019-05-27 07:28] VITALS: BP 161/95
--- NOTE | 2019-05-27 07:48 | PDOC.PN ---
- Subjective Encounter Start Date: 05/26/19 Encounter Start Time: 18:00 Status post EGD. Doing well. Hungry. Was tolerating regular diet prior to scope. - Objective Resuscitation Status - Order Detail: 05/24/19 01:52 Resuscitation Status Routine Resuscitation Status: FULL: Full Resuscitation Vital Signs & Weight: Vital Signs (12 hours) Temp Pulse Resp BP Pulse Ox 05/27/19 07:24 97.4 F L 71 17 161/95 H 98 05/27/19 04:00 84 21 H 128/72 95 05/26/19 23:57 64 165/98 H 05/26/19 20:00 70 L 05/26/19 19:58 97.4 F L 93 20 158/78 H 100 Weight Admit Weight 302 lb 6.4 oz Weight 301 lb 8 oz Most Recent Monitor Data Heart Rate from ECG 65 NIBP 148/104 NIBP BP-Mean 118 Respiration from ECG 15 SpO2 97 I&O: 05/26/19 05/27/19 05/28/19 06:59 06:59 06:59 Intake Total 3470 1415 Output Total 1250 Balance 2220 1415 Result Diagrams: 05/23/19 18:36 05/27/19 06:17 Phys Exam - Physical Examination Constitutional: NAD Morbidly obese. Respiratory: no wheezing, no rales, no rhonchi, clear to auscultation bilateral Cardiovascular: RRR, no significant murmur, no rub Gastrointestinal: soft, non-tender, no distention, positive bowel sounds Musculoskeletal: no edema Psychiatric: normal affect, A&O x 3 Dx/Plan (1) Duodenal ulcer Status: Acute (2) Hx of gastric bypass Code(s): Z98.84 - BARIATRIC SURGERY STATUS Status: Acute (3) Hypokalemia Code(s): E87.6 - HYPOKALEMIA Status: Acute (4) Nausea & vomiting Code(s): R11.2 - NAUSEA WITH VOMITING, UNSPECIFIED Status: Acute Qualifiers: Vomiting type: unspecified Vomiting Intractability: unspecified Qualified Code(s): R11.2 - Nausea with vomiting, unspecified (5) CKD (chronic kidney disease), stage II Code(s): N18.2 - CHRONIC KIDNEY DISEASE, STAGE 2 (MILD) Status: Acute (6) Hypertension Code(s): I10 - ESSENTIAL (PRIMARY) HYPERTENSION Status: Chronic Qualifiers: Hypertension type: essential hypertension Qualified Code(s): I10 - Essential (primary) hypertension - Plan * Late entry note from 05/26. * Discussed with GI. * Regular diet. * BID PPI as he is already on. * BP is high. Will give IV Hydralazine x 1. * If BP better and tolerating regular diet, anticipate DC in am.
[2019-05-27] MEDS: Metoprolol Tartrate 100 MG TAB PO SCH (08:58)
--- NOTE | 2019-05-27 08:58 | PRG ---
DATE OF SERVICE: 05/27/2019 SUBJECTIVE: Mr. Wiggins is a 53-year-old white male, who was seen for his hyponatremia. This is felt that this was secondary to hypovolemic hyponatremia. Serum sodium improving with free water restriction as well as normal saline. In the interim, he underwent an upper GI endoscopy. Two large ulcerations were seen at small bowel below the anastomotic area, where he had a bypass done. Recommendation by GI is PPI. Awaiting biopsy reports. This morning, he is feeling better. No chest pain or shortness of breath. OBJECTIVE: VITAL SIGNS: Blood pressure 161/95, heart rate 71, respiratory rate 17, temperature 97.4, and pulse ox 98%. GENERAL: Awake, alert, comfortable, not in distress. SKIN: Adequate turgor. HEENT: He has pinkish conjunctivae. Anicteric sclerae. NECK: No neck mass. No carotid bruits. No JVD. CHEST: No deformities. LUNGS: Clear breath sounds. HEART: Normal sinus rhythm. No murmurs. No gallops. No rubs. ABDOMEN: Globular, soft, and nontender. No masses. EXTREMITIES: No edema. No deformities. MEDICATIONS: Medications of May 27, 2019, reviewed. LABORATORY DATA: Laboratories of May 27, 2019; sodium 132, potassium 4.2, chloride 97, carbon dioxide 28, BUN 6, creatinine 0.92, glucose 91, and calcium 9.4. ASSESSMENT AND PLAN: 1. Hyponatremia - secondary to hypovolemic hyponatremia, much improved. Serum sodium is 132. Continue current management. 2. Nausea and vomiting - status post upper GI endoscopy. GI is following. 3. From a renal point of view, this patient can be discharged any time. He can [facility] up at [facility]. Job ID: [id number]
[2019-05-27] MEDS: Pantoprazole 40 MG VIAL IVP SCH (09:00)
--- NOTE | 2019-05-28 04:53 | DIS ---
DATE OF ADMISSION: 05/23/2019 DATE OF DISCHARGE: 05/27/2019 DISCHARGE DIAGNOSES: 1. Severe hyponatremia. 2. Duodenal ulcer. 3. History of gastric bypass. 4. Hyperkalemia. 5. Nausea, vomiting. 6. Chronic kidney disease, stage 2. 7. History of chronic pain syndrome. 8. History of obstructive sleep apnea. 9. History of hypothyroidism. 10. History of chronic venous insufficiency, lower extremities. 11. History of anxiety. HISTORY OF PRESENT ILLNESS: The patient is a 53-year-old male with history of gastric bypass procedure in 2007, who presented to the emergency department with generalized weakness and persistent nausea, which had been present for about a week. The patient had significant dry heaving, had not had a bowel movement for 2-3 days. His workup at that time revealed a sodium of 113, potassium of 4, BUN [address], [address] abdomen only showed bilateral inguinal hernias with nonobstructive bile. HOSPITAL COURSE: The patient was admitted with severe hyponatremia with persistent nausea and vomiting. He had evaluation by Nephrology and Gastroenterology. He was followed closely with regard to his hyponatremia, which steadily improved with the gentle hydration. Dr. Spence saw the patient for GI, felt he wanted endoscopy given his history. Dr. Ellington subsequently took the patient for EGD and found large ulcers just distal to the anastomotic site. These were deep, but nonbleeding. He was able to return the patient to a regular diet. The following morning, the patient was doing well, had no pain, tolerating the diet, had no nausea or vomiting. Sodium had improved to 132. Temperature 97.4 pulse 71, respirations 17, O2 saturation 98% on room air, BP 128/72, up to 161/95. The patient was awake and alert. Heart was regular rate and rhythm. Lungs were clear to auscultation bilaterally. Abdomen was soft, nontender, and nondistended with positive bowel sounds. Extremities, no cyanosis or edema. The patient was felt to be stable for discharge to home at that time. DISPOSITION: He is to have no dietary restrictions. His activity is as tolerated. DISCHARGE MEDICATIONS: 1. He will be on Protonix 40 mg p.o. b.i.d. 2. He will continue his other home medicines including;. a. Aspirin. b. Levothyroxine. c. Lasix. d. Duloxetine. e. Metoprolol. FOLLOWUP: He is to follow up with Dr. Frederick Arvizu in 7 days and he will see Dr. Ellington as well. The patient will need to talk to Dr. Arvizu regarding his persistently slightly elevated blood pressure, which he is aware of. The patient can return to the hospital should he have any problems prior to the time of his followup. TIME SPENT: Total time in discharge activities including [id number] time with the patient was 36 minutes. Job ID: [id number]
--- NOTE | 2019-05-29 14:06 | EKG ---
Test Reason : Blood Pressure : / mmHG Vent. Rate : 069 BPM Atrial Rate : 086 BPM P-R Int : 000 ms QRS Dur : 102 ms QT Int : 430 ms P-R-T Axes : 000 078 055 degrees QTc Int : 460 ms Atrial fibrillation Abnormal ECG Confirmed by BRISEIDA CONTRERAS ([id number]), book editor DON LÓPEZ ([id number]) on 05/29/2019 2:06:31 PM Referred By: Confirmed By:BRISEIDA CONTRERAS
== END 2019-05-27 13:05 | disposition home or self-care (01) | DRG 384 ==
LOC: ERS 18:16 → IMCU/EMU 21:57 → 2NO 05-25 11:50
PROVIDERS: ADMIT Internal Medicine; ATTEND Internal Medicine
PROC: 0DB98ZX Excision of Duodenum, Via Natural or Artificial Opening Endoscopic, Diagnostic (ICD-10-PCS; principal; 2019-05-26)
DX: K26.9 Duodenal ulcer, unspecified as acute or chronic, without hemorrhage or perforation (principal); E87.1 Hypo-osmolality and hyponatremia; Z68.41 Body mass index [BMI] 40.0-44.9, adult; I50.32 Chronic diastolic (congestive) heart failure; I13.0 Hypertensive heart and chronic kidney disease with heart failure and stage 1 through stage 4 chronic kidney disease, or unspecified chronic kidney disease; I48.2 Chronic atrial fibrillation; E03.9 Hypothyroidism, unspecified; Z96.652 Presence of left artificial knee joint; F32.9 Major depressive disorder, single episode, unspecified; F17.220 Nicotine dependence, chewing tobacco, uncomplicated; N40.0 Benign prostatic hyperplasia without lower urinary tract symptoms; M10.9 Gout, unspecified; G89.4 Chronic pain syndrome; E66.01 Morbid (severe) obesity due to excess calories; J45.20 Mild intermittent asthma, uncomplicated; F41.9 Anxiety disorder, unspecified; I87.2 Venous insufficiency (chronic) (peripheral); N18.2 Chronic kidney disease, stage 2 (mild); E86.1 Hypovolemia; E87.5 Hyperkalemia; Z88.1 Allergy status to other antibiotic agents; Z90.49 Acquired absence of other specified parts of digestive tract; Z88.8 Allergy status to other drugs, medicaments and biological substances; Z79.82 Long term (current) use of aspirin; Z79.899 Other long term (current) drug therapy
CPT/HCPCS: 36415; 74177; 80048; 80053; 81001; 82533; 83690; 83735; 83880; 83930; 83935; 84100; 84300; 84443; 84484; 85025; 88305; 93005; 96361; 96374; 96375; C9113; J0360; J2001; J2405; J2704; J3010; Q9967

== ENCOUNTER 2019-08-26 11:36 | Emergency (ER) | payer OTHER ==
[2019-08-26] MEDS ORDERED: Acetaminophen/Codeine 30-300mg Tablet ONE (13:14)
== END 2019-08-26 13:20 | disposition home or self-care (01) ==
LOC: ERS 11:36
DX: M54.41 Lumbago with sciatica, right side (principal); E03.9 Hypothyroidism, unspecified; I10 Essential (primary) hypertension; F17.220 Nicotine dependence, chewing tobacco, uncomplicated; Z79.899 Other long term (current) drug therapy
CPT/HCPCS: 99283

== ENCOUNTER 2019-10-18 10:07 | Emergency (ER) | payer OTHER ==
[2019-10-18] MEDS ORDERED: Ketorolac Tromethamine 60 MG/2 ML VIAL ONE (11:52)
--- NOTE | 2019-10-18 12:16 | RAD ---
XR Chest Pa Lat STANDARD History: Injury. Fall. Comparison: Radiograph March 2019 Findings: The lungs are clear. No pneumothorax. No effusion. Ossified body within the left axillary p ouch. Cardiac silhouette is mildly enlarged, similar. Mild prominence of the pulmonary vasculature. Impression: No acute intrathoracic abnormality.
== END 2019-10-18 13:05 | disposition home or self-care (01) ==
LOC: ERS 10:07
DX: S20.211A Contusion of right front wall of thorax, initial encounter (principal); I48.91 Unspecified atrial fibrillation; I10 Essential (primary) hypertension; F32.9 Major depressive disorder, single episode, unspecified; E03.9 Hypothyroidism, unspecified; F17.220 Nicotine dependence, chewing tobacco, uncomplicated; W19.XXXA Unspecified fall, initial encounter
CPT/HCPCS: 71046; 96372; J1885

== ENCOUNTER 2019-11-08 16:32 | Inpatient (IN) | payer OTHER, SELFPAY ==
[2019-11-08 17:30] LABS: Mean Corpuscular HGB CONC 33.3 g/dL (32.0-36.0); Mean Corpuscular Hemoglobin 32.2 pg (27.0-31.0); Mean Corpuscular Volume 96.7 fL (78.0-98.0); Mean Platelet Volume 7.4 fL (7.4-10.4); Platelet Count 278 thou/uL (130-400); RBC Distribution Width 13.4 % (11.5-14.5); Red Blood Cell (RBC) Count 4.04 mill/uL (4.70-6.10); White Blood Cell (WBC) Count 13.2 thou/uL (4.8-10.8)
[2019-11-08] MEDS ORDERED: Sulfameth/Trimethoprim DS 800-160mg TAB ONE (17:40)
[2019-11-08 17:46] LABS: Band 4 % (5-11); Lymphocytes 6 % (21-51); MDiff Complete? YES; Monocytes 7 % (0-10); Neutrophil 80 % (42-75); Platelet Morphology Comment Appears Adequate; RBC Morphology Normal; Reactive Lymphocytes 1 % (0-10)
[2019-11-08 18:08] LABS: ALT (SGPT) 9 U/L (8-55); AST (SGOT) 32 U/L (5-34); Albumin 3.7 g/dL (3.5-5.0); Alkaline Phosphatase 63 U/L (40-110); Anion Gap 15 mmol/L (10-20); BUN (Urea Nitrogen) 9 mg/dL (8.4-25.7); Bilirubin, Total 0.9 mg/dL (0.2-1.2); CK (CPK) 36 U/L (30-200); Calc. Creatinine Clearance 0 mL/min (70-130); Calcium 9.1 mg/dL (7.8-10.44); Carbon Dioxide 24 mmol/L (22-29); Chloride 102 mmol/L (98-107); Estimated GFR-MDRD 80; Globulin 3.4 g/dL (2.4-3.5); Glucose 93 mg/dL (70-105); Potassium 5.1 mmol/L (3.5-5.1); Protein, Total 7.1 g/dL (6.0-8.3); Sodium 136 mmol/L (136-145)
[2019-11-08 18:17] LABS: Bilirubin Negative (Negative); Blood, Urine Negative (Negative); Clarity Clear (Clear); Glucose, Urine (Dipstick) Normal (Negative); Leukocyte Negative Leu/uL (Negative); Nitrite Negative (Negative); Protein, Urine (Dipstick) Negative (Neg-Trace); Urobilinogen Normal mg/dL (Less than 2)
--- NOTE | 2019-11-08 18:42 | CT ---
EXAM: CT pulmonary angiogram with IV contrast and 3-D MIP reconstructions PROVIDED CLINICAL HISTORY: Dyspnea COMPARISON: None FINDINGS: There is no evidence for central or segmental pulmonary embolus. There are vascular calcifications including coronary calcium. There are patchy diffuse centrilobular primarily groundglass opacities with minimal associated consol idation most typical for infectious pneumonitis. There are mild bilateral pleural fluid collections. No evidence for thoracic lymph node enlargement. The airway appears patent and of normal caliber. The visualized portions of the upper abdomen demonstrate no acute findings. The osseous structures de monstrate no concerning lytic or blastic lesions. IMPRESSION: 1. No evidence for central or segmental pulmonary embolus. 2. Diffuse patchy perihilar airspace disease most compatible with infectious pneumonitis. Pulmonary e cristiano is thought less likely given lack of apparent interstitial thickening. 3. Mild bilateral pleural effusions.
--- NOTE | 2019-11-08 18:45 | RAD ---
RADIOGRAPH CHEST 1 VIEW: DATE: 11/08/2019 HISTORY: 54-year-old male with dyspnea FINDINGS: There are no airspace densities, pulmonary edema, pneumothorax, or cardiomegaly. The lateral costophr enic angles are sharp. IMPRESSION: No acute cardiopulmonary findings.
[2019-11-08] MEDS ORDERED: cefTRIAXone\\ROCEPHIN 2 GM VIAL ONE (18:48)
[2019-11-08] MEDS ORDERED: Azithromycin 500 MG VIAL ONE (18:48)
[2019-11-08] MEDS ORDERED: Acetaminophen 325 MG TAB PO PRN (19:39)
--- NOTE | 2019-11-08 19:43 | PDOC.HHP ---
Hospitalist HPI - History of Present Illness Shortness of breath and cough History of Present Illness: Mr. Bob is a 54 y/o man with PMH of Afib, HTN, history of GI bleeding, chronic back pain who presents to the ED with shortness of breath and cough. On he started feeling generalized body weakness and would become short of breath when walking around the house. Through the weekend these symptoms worsened. He started to develop a cough but is unable to produce much plegm. Last night, he noted that he could barely walk around the house without becoming very short of breath. Noticed he woke up with sweating and felt chills , but did not record his temperature at home. Today decided to come to the emergency room. He has never had a pneumonia in the past. Has chronic afib with history of ablation but not on blood thinner because of hx of GI bleeding. Denies cp, nausea, vomiting, diarrhea, abdominal pain, dysuria, or other sxs. Hospitalist ROS - Review of Systems Constitutional: reports: chills, sweats, weakness Eyes: denies: pain, vision change, conjunctivae inflammation, eyelid inflammation, redness, other ENT: denies: ear pain, ear discharge, nose pain, nose discharge, nose congestion , mouth pain, mouth swelling, throat pain, throat swelling, other Respiratory: denies: cough, dry, shortness of breath, hemoptysis, SOB with excertion, pleuritic pain, sputum, wheezing, other Cardiovascular: denies: chest pain, palpitations, orthopnea, paroxysmal noc. dyspnea, edema, light headedness, other Gastrointestinal: denies: nausea, vomiting, abdominal pain, diarrhea, constipation, melena, hematochezia, other Genitourinary: denies: dysuria, frequency, incontinence, hematuria, retention, other Musculoskeletal: reports: back pain. denies: neck pain, shoulder pain, arm pain , hand pain, leg pain, foot pain, other Skin: denies: rash, lesions, mita, bruising, other Neurological: denies: weakness, numbness, incoordination, change in speech, confusion, seizures, other - Medication Medications: sertraline FriNov 08, 2019 16:53 RAJI Zafar Christina tablet : Strength - 50 mg : ORAL Patient Dose: 50 mg Oral once a day. levothyroxine oral FriNov 08, 2019 16:53 RAJI Zafar Christina tablet : Strength - 125 mcg : ORAL Patient Dose: 125 mcg Oral once a day. losartan FriNov 08, 2019 16:54 RAJI Zafar Christina tablet : Strength - 50 mg : ORAL Patient Dose: 50 mg Oral once a day. metoprolol tartrate oral FriNov 08, 2019 16:54 RAJI Zafar Christina tablet : Strength - 100 mg : ORAL Patient Dose: 100 mg Oral 2 times a day. furosemide oral FriNov 08, 2019 16:55 RAJI Zafar Christina tablet : Strength - 20 mg : ORAL Patient Dose: 20 mg Oral once a day. Hospitalist History - Past Medical History Source: patient Cardiac: reports: AFIB, HTN Pulmonary: reports: no pertinent history BRICK PAVER: reports: no pertinent history Gastrointestinal: reports: no pertinent history Heme/Onc: reports: no pertinent history Hepatobiliary: reports: no pertinent history Psych: reports: Anxiety Musculoskeletal: reports: Chronic low back pain Rheumatologic: reports: no pertinent history Infectious Disease: reports: no pertinent history ENT: reports: no pertinent history Renal/: reports: no pertinent history Endocrine: reports: Hypothyroidism Dermatology: reports: no pertinent history - Past Surgical History Past Surgical History: reports: Appendectomy - Family History Family History: reports: no pertinent history, hypertension - Social History Tobacco Type: snuff Alcohol: reports: None Drugs: reports: none Living Situation: With Family Activity level: independent ambulation - Exam General Appearance: NAD, awake alert General - other findings: Obese male, on nasal cannula Eye: PERRL, anicteric sclera ENT: normocephalic atraumatic, no oropharyngeal lesions, moist mucosa Neck: supple, symmetric, no JVD, no thyromegaly, no lymphadenopathy, no carotid bruit Heart: RRR, no murmur, no gallops, no rubs, normal peripheral pulses Respiratory: CTAB, no wheezes, no rales, no ronchi, normal chest expansion, normal percussion, tachypneic Gastrointestinal: soft, non-tender, non-distended, normal bowel sounds, no palpable masses, no hepatomegaly, no splenomegaly, no bruit Extremities: no cyanosis, no clubbing, no edema Skin: normal turgor, no lesions, no rashes Neurological: cranial nerve grossly intact, normal sensation to touch, no weakness, no focal deficits, no new deficit Musculoskeletal: normal tone, normal strength, no muscle wasting Psychiatric: normal affect, normal behavior, A&O x 3 Hospitalist Results - Labs Result Diagrams: 11/08/19 17:20 11/08/19 17:20 Lab results: WBC 13.2 thou/uL (4.8-10.8) H 11/08/19 17:20 Hgb 13.0 g/dL (14.0-18.0) L 11/08/19 17:20 Hct 39.0 % (42.0-52.0) L 11/08/19 17:20 MCV 96.7 fL (78.0-98.0) 11/08/19 17:20 Plt Count 278 thou/uL (130-400) 11/08/19 17:20 Band Neuts % (Manual) 4 % (5-11) L 11/08/19 17:20 Sodium 136 mmol/L (136-145) 11/08/19 17:20 Potassium 5.1 mmol/L (3.5-5.1) 11/08/19 17:20 Chloride 102 mmol/L (98-107) 11/08/19 17:20 Carbon Dioxide 24 mmol/L (22-29) 11/08/19 17:20 BUN 9 mg/dL (8.4-25.7) 11/08/19 17:20 Creatinine 0.97 mg/dL (0.7-1.3) 11/08/19 17:20 Glucose 93 mg/dL (70-105) 11/08/19 17:20 Calcium 9.1 mg/dL (7.8-10.44) 11/08/19 17:20 Total Bilirubin 0.9 mg/dL (0.2-1.2) 11/08/19 17:20 AST 32 U/L (5-34) 11/08/19 17:20 ALT 9 U/L (8-55) 11/08/19 17:20 Alkaline Phosphatase 63 U/L (40-110) 11/08/19 17:20 Creatine Kinase 36 U/L (30-200) 11/08/19 17:20 Troponin I 0.017 ng/mL (< 0.028) 11/08/19 17:20 Serum Total Protein 7.1 g/dL (6.0-8.3) 11/08/19 17:20 Albumin 3.7 g/dL (3.5-5.0) 11/08/19 17:20 Urine Ketones Negative mg/dL (Negative) 11/08/19 17:50 Urine Blood Negative (Negative) 11/08/19 17:50 Urine Nitrite Negative (Negative) 11/08/19 17:50 Ur Leukocyte Esterase Negative Fili/uL (Negative) 11/08/19 17:50 Additional comment: VITAL SIGNS FriNov 08, 2019 16:33 RAJI Alvarado Lauren BP: 167/101, Pulse: 90, Resp: 20, Temp: 99.2 (Oral), Pain: 10, O2 sat: 96 on ( Room Air), Time: 11/08/2019 16:33. - EKG Interpretation EK lead EKG shows, atrial fibrillation with controlled ventricular response, Rate (beats per minute): 91, Conduction normal, ST segments normal, T waves normal, [place] normal, Other findings include:, left ventricular hypertrophy. Hospitalist H&P A/P - Problem (1) Community acquired pneumonia Code(s): J18.9 - PNEUMONIA, UNSPECIFIED ORGANISM Status: Acute (2) Sepsis Code(s): A41.9 - SEPSIS, UNSPECIFIED ORGANISM Status: Acute (3) Atrial fibrillation with controlled ventricular rate Code(s): I48.91 - UNSPECIFIED ATRIAL FIBRILLATION Status: Chronic (4) Morbid obesity Code(s): E66.01 - MORBID (SEVERE) OBESITY DUE TO EXCESS CALORIES Status: Chronic (5) Hypothyroidism Code(s): E03.9 - HYPOTHYROIDISM, UNSPECIFIED Status: Chronic (6) Hypertension Code(s): I10 - ESSENTIAL (PRIMARY) HYPERTENSION Status: Chronic Qualifiers: Hypertension type: essential hypertension Qualified Code(s): I10 - Essential (primary) hypertension - Plan Plan: Admit for inpatient telemetry. Likely greater than 2 midnights required in eval and tx CT chest reviewed, b/l patchy infiltrates noted Continue Ceftriaxone and Azithromycin Follow up sputum and blood cultures Tylenol and Daisy PRN for pain Medications to be reconciled once in system Continue nasal cannula, wean off oxygen when able. Ok with saturation > 94% DVT Prophylaxis: SCDs Code status: Full Code ACP: is surrogate decision maker Disposition: Admit and tx for pneumonia
[2019-11-08] MEDS ORDERED: guaiFENesin 200 MG TAB PO PRN (19:49)
--- NOTE | 2019-11-08 19:59 | CT ---
EXAM: CT Abdomen Pelvis W Con PROVIDED CLINICAL HISTORY: GI bleed, abdominal pain COMPARISON: 05/23/2019 FINDINGS: Bilateral pleural fluid partially visualized. The solid abdominal organs demonstrate an unchanged CT appearance. There is no bowel dilatation, inflammatory fat stranding, free fluid or free air apparent. Right ingu inal hernia containing nondilated small bowel partially visualized, appearing similar to prior. Sigmoid colon containing left inguinal hernia is again partially visualized. Right spigelian hernia i s redemonstrated now containing a small amount of nondilated descending colon. The osseous structures demonstrate no concerning lytic or blastic lesions. Postoperative changes of g astric sleeve are redemonstrated. Occasional vascular calcifications are seen. IMPRESSION: No evidence for an acute process.
[2019-11-08] MEDS ORDERED: Morphine 2 MG/ML SYRINGE ONE (21:05)
[2019-11-08 22:58] VITALS: BMI 42.0
[2019-11-09] MEDS: HYDROcodone/Acetaminophen 5/325 mg Tablet PO PRN ×4 (00:24→20:12)
[2019-11-09 04:41] LABS: #Basophils 0.1 thou/uL (0.0-0.2); #Eosinphils 0.1 thou/uL (0.0-0.7); #Lymphocytes 2.1 thou/uL (1.20-3.40); #Monocytes 1.2 thou/uL (0.11-0.59); #Neutrophils 9.5 thou/uL (1.40-6.50); %Basophils 0.9 % (0.0-1.0); %Eosinophils 1.1 % (0.0-10.0); %Lymphocytes 15.7 % (21.0-51.0); %Monocytes 9.3 % (0.0-10.0); Hemoglobin 12.2 g/dL (14.0-18.0); Mean Corpuscular HGB CONC 32.2 g/dL (32.0-36.0); Mean Corpuscular Hemoglobin 31.5 pg (27.0-31.0); Mean Corpuscular Volume 97.7 fL (78.0-98.0); Mean Platelet Volume 7.1 fL (7.4-10.4); Platelet Count 266 thou/uL (130-400); RBC Distribution Width 13.5 % (11.5-14.5); Red Blood Cell (RBC) Count 3.89 mill/uL (4.70-6.10)
[2019-11-09 05:09] LABS: Anion Gap 10 mmol/L (10-20); BUN (Urea Nitrogen) 10 mg/dL (8.4-25.7); Calc. Creatinine Clearance 182 mL/min (70-130); Calcium 8.9 mg/dL (7.8-10.44); Carbon Dioxide 28 mmol/L (22-29); Chloride 101 mmol/L (98-107); Estimated GFR-MDRD 86; Glucose 85 mg/dL (70-105); Potassium 4.3 mmol/L (3.5-5.1); Sodium 135 mmol/L (136-145)
[2019-11-09] MEDS ORDERED: Furosemide 20 MG TAB PO PRN (11:47)
[2019-11-09] MEDS ORDERED: Metoprolol Tartrate 50 MG TAB PO SCH (12:00)
[2019-11-09] MEDS ORDERED: Losartan 25 MG TAB PO SCH (12:00)
[2019-11-09] MEDS ORDERED: Aspirin 81 mg Enteric Coated Tablet PO SCH (12:00)
--- NOTE | 2019-11-09 14:36 | PDOC.HOSPP ---
- Subjective Subjective: Continues with tachycardia and some difficulty breathing when moving around. He states he does feel a bit better. When asked he feels like he needs to stay for a day or so. Continues with cough. Denies cp, palpiatiaons, fever, or other sxs. - Objective Vital Signs & Weight: Vital Signs (12 hours) Temp Pulse Pulse Pulse Resp BP BP 11/09/19 12:15 161/111 H 11/09/19 11:00 98 F 68 18 11/09/19 09:16 113 H 101 H 157/104 H 142/77 H 11/09/19 07:30 97.6 F 94 18 11/09/19 04:00 97.8 F 90 20 BP Pulse Ox 11/09/19 12:15 11/09/19 11:00 161/99 H 97 11/09/19 09:16 11/09/19 07:30 151/98 H 95 11/09/19 04:00 158/108 H 94 L Weight Weight 310 lb Result Diagrams: 11/09/19 04:12 11/09/19 04:12 Hospitalist ROS - Review of Systems Constitutional: reports: weakness. denies: fever, chills, sweats, malaise, other Respiratory: reports: cough. denies: dry, shortness of breath, hemoptysis, SOB with excertion, pleuritic pain, sputum, wheezing, other Cardiovascular: denies: chest pain, palpitations, orthopnea, paroxysmal noc. dyspnea, edema, light headedness, other Gastrointestinal: denies: nausea, vomiting, abdominal pain, diarrhea, constipation, melena, hematochezia, other - Medication Medications: Active Medications Generic Name Dose Route Start Last Admin Trade Name Freq PRN Reason Stop Dose Admin Hydrocodone Bitart/Acetaminophen 1 tab 11/08/19 19:39 11/09/19 07:59 [place] 5/325 PO 1 tab Q4H PRN Administration Moderate Pain (4-6) - Exam General Appearance: NAD, awake alert General - other findings: Obese male Eye: PERRL, anicteric sclera ENT: normocephalic atraumatic, no oropharyngeal lesions, moist mucosa Neck: supple, symmetric, no JVD, no thyromegaly, no lymphadenopathy, no carotid bruit Heart: RRR, no murmur, no gallops, no rubs, normal peripheral pulses Respiratory: CTAB, no wheezes, no rales, no ronchi, normal chest expansion, no tachypnea, normal percussion Gastrointestinal: soft, non-tender, non-distended, normal bowel sounds, no palpable masses, no hepatomegaly, no splenomegaly, no bruit Extremities: no cyanosis, no clubbing, no edema Skin: normal turgor, no lesions, no rashes Neurological: cranial nerve grossly intact, normal sensation to touch, no weakness, no focal deficits, no new deficit Musculoskeletal: normal tone, normal strength, no muscle wasting Psychiatric: normal affect, normal behavior, A&O x 3 Hosp A/P (1) Community acquired pneumonia Code(s): J18.9 - PNEUMONIA, UNSPECIFIED ORGANISM Status: Acute (2) Sepsis Code(s): A41.9 - SEPSIS, UNSPECIFIED ORGANISM Status: Acute (3) Atrial fibrillation with controlled ventricular rate Code(s): I48.91 - UNSPECIFIED ATRIAL FIBRILLATION Status: Chronic (4) Morbid obesity Code(s): E66.01 - MORBID (SEVERE) OBESITY DUE TO EXCESS CALORIES Status: Chronic (5) Hypothyroidism Code(s): E03.9 - HYPOTHYROIDISM, UNSPECIFIED Status: Chronic (6) Hypertension Code(s): I10 - ESSENTIAL (PRIMARY) HYPERTENSION Status: Chronic Qualifiers: Hypertension type: essential hypertension Qualified Code(s): I10 - Essential (primary) hypertension - Plan Continue Ceftriaxone and Azithromycin Pending cultures Continue medications from home Still requiring oxygen, heart rate still elevated Disposition: Likely pneumonia to improve in 24-48 hours. So far cultures are negative, continue empiric tx.
[2019-11-09] MEDS ORDERED: Azithromycin 500 MG in Sodium Chloride 0.9% 250 ML 250 ML IVPB SCH (18:00)
[2019-11-09] MEDS ORDERED: cefTRIAXone\\ROCEPHIN 1 GM in Sodium Chloride 0.9% 100 ML IVPB SCH (20:00)
[2019-11-09] MEDS: Metoprolol Tartrate 50 MG TAB PO SCH (20:13)
[2019-11-10] MEDS: HYDROcodone/Acetaminophen 5/325 mg Tablet PO PRN ×3 (00:43→11:09)
[2019-11-10] MEDS ORDERED: Levothyroxine Sodium 100 MCG TAB PO SCH (06:00)
[2019-11-10] MEDS: Metoprolol Tartrate 50 MG TAB PO SCH (08:35)
[2019-11-10] MEDS ORDERED: Losartan 25 MG TAB PO SCH (09:00)
[2019-11-10] MEDS ORDERED: Aspirin 81 mg Enteric Coated Tablet PO SCH (09:00)
[2019-11-10 11:09] VITALS: TEMP 97.6
[2019-11-10 14:34] VITALS: BP 177/114
--- NOTE | 2019-11-10 17:45 | PDISCHARGE ---
Discharge - Disposition Disposition: HOME - Ambulatory Orders Prescriptions: Azithromycin 500 mg PO DAILY 5 Days #5 tablet Cefdinir [Omnicef] 300 mg PO BID 5 Days #10 cap - Patient Instructions Pre-Printed Education: Cefdinir capsules, Sepsis, Adult, Azithromycin tablets, Atrial Fibrillation, Community-Acquired Pneumonia, Adult Care Plan Goals: FOCUS: Transition from Acute Care after Discharge GOAL: Successful transition to care in the community YOUR TASKS: (1) review all information outlined in your discharge packet (2) follow any instructions outlined in your discharge packet (3) contact your primary care provider if you have questions or need additional assistance See patient discharge instruction sheet for detailed teaching. Patient verbalizes understanding of medications and is able to verbalize follow-up care. See Discharge Plan for additional discharge information. Patient secured in private vehicle prior to departure. AFTER HOSPITAL CARE PLAN and EDUCATION Pneumonia Take medication exactly as directed: Continue taking Antibiotics as directed until they are All Gone even if you start to feel better. Be sure to follow up with your doctor no more than 5 days after leaving the hospital. Coughing up mucus is normal: Remember to cover your cough. Deep breathing and coughing exercises can help clear your lungs. Get plenty of rest until your fever, shortness of breath, & chest pain go away. Moving around helps keep your lungs clear. Walking is often a good choice. Get a Flu vaccine every year as soon as it is available. Flu shots help prevent you from getting the flu & pneumonia. [place]: Infections can cause symptoms to worsen. Stay away from sick people and wash your hands often. Dont give up giving up: If you smoke, quit. Smoking is the strongest risk factor for pneumonia. Call your doctor if: * You have fever above 101.5F * Yellow, green, bloody or smelly sputum * More than normal mucus production * Vomiting Call 911 right away if you have: * Chest Pain * Trouble breathing * Blue lips or fingernails - Referrals and PCP Follow-Up Referrals and PCP Follow-Up: Frederick Arvizu MD [Primary Care Provider] - 7 Days (Call office to schedule an appointment. Please bring all of your discharge paperwork and home medications with you to your appointment.) - Activity Instructions Activity:: Activity as Tolerated - Nourishment Instructions Nourishment:: Heart Healthy Diet Course - Course Orders, Labs, Meds: Admitted with sepsis due to community acquired pneumonia. WBC count elevated, symptoms of cough, CT findings suggestive of pneumonia process. Treated with IV antibiotics and fluids. Patient showed clinical improvement and will complete remainder of CAP therapy in the outpatient. Will follow up with PCP in 1 week. Total time spent on discharge planning and management > 30 minutes. Hosp A/P (1) Community acquired pneumonia Code(s): J18.9 - PNEUMONIA, UNSPECIFIED ORGANISM Status: Acute (2) Sepsis Code(s): A41.9 - SEPSIS, UNSPECIFIED ORGANISM Status: Acute (3) Atrial fibrillation with controlled ventricular rate Code(s): I48.91 - UNSPECIFIED ATRIAL FIBRILLATION Status: Chronic (4) Morbid obesity Code(s): E66.01 - MORBID (SEVERE) OBESITY DUE TO EXCESS CALORIES Status: Chronic (5) Hypothyroidism Code(s): E03.9 - HYPOTHYROIDISM, UNSPECIFIED Status: Chronic (6) Hypertension Code(s): I10 - ESSENTIAL (PRIMARY) HYPERTENSION Status: Chronic Qualifiers: Hypertension type: essential hypertension Qualified Code(s): I10 - Essential (primary) hypertension
== END 2019-11-10 14:40 | disposition home or self-care (01) | DRG 871 ==
LOC: ERS 16:32 → 2NO 22:17
PROVIDERS: ADMIT Internal Medicine; ATTEND Internal Medicine
DX: A41.9 Sepsis, unspecified organism (principal); J18.9 Pneumonia, unspecified organism; Z68.42 Body mass index [BMI] 45.0-49.9, adult; I48.20 Chronic atrial fibrillation, unspecified; E66.01 Morbid (severe) obesity due to excess calories; Z79.899 Other long term (current) drug therapy; I10 Essential (primary) hypertension; Z90.49 Acquired absence of other specified parts of digestive tract; E03.9 Hypothyroidism, unspecified
CPT/HCPCS: 36415; 71045; 71275; 74177; 80048; 80053; 81003; 82274; 82550; 84484; 85025; 85379; 87040; 87070; 87077; 87205; 87804; 93005; 96365; 96375; J0456; J0696; J2270; J3490; J7050

== ENCOUNTER 2020-03-08 12:24 | Observation (INO) | payer MEDICARE, OTHER ==
[2020-03-08 12:58] LABS: #Basophils 0.1 thou/uL (0.0-0.2); #Eosinphils 0.4 thou/uL (0.0-0.7); #Monocytes 0.9 thou/uL (0.11-0.59); #Neutrophils 5.4 thou/uL (1.40-6.50); %Basophils 1.3 % (0.0-1.0); %Eosinophils 4.2 % (0.0-10.0); %Lymphocytes 22.9 % (21.0-51.0); %Monocytes 10.1 % (0.0-10.0); %Neutrophils 61.5 % (42.0-75.0); Hemoglobin 12.9 g/dL (14.0-18.0); Mean Corpuscular HGB CONC 32.3 g/dL (32.0-36.0); Mean Corpuscular Hemoglobin 30.3 pg (27.0-31.0); Mean Corpuscular Volume 93.8 fL (78.0-98.0); Mean Platelet Volume 6.8 fL (7.4-10.4); Platelet Count 325 thou/uL (130-400); RBC Distribution Width 13.2 % (11.5-14.5); Red Blood Cell (RBC) Count 4.27 mill/uL (4.70-6.10); White Blood Cell (WBC) Count 8.8 thou/uL (4.8-10.8)
[2020-03-08] MEDS ORDERED: Nitroglycerin 0.4 MG TAB 1 EACH ONE (13:15)
[2020-03-08] MEDS ORDERED: Aspirin Chewable 81 MG TAB ONE (13:15)
[2020-03-08 13:23] LABS: ALT (SGPT) 14 U/L (8-55); AST (SGOT) 21 U/L (5-34); Albumin 4.1 g/dL (3.5-5.0); Alkaline Phosphatase 63 U/L (40-110); Anion Gap 13 mmol/L (10-20); BUN (Urea Nitrogen) 7 mg/dL (8.4-25.7); Bilirubin, Total 0.8 mg/dL (0.2-1.2); CK (CPK) 49 U/L (30-200); Calc. Creatinine Clearance 0 mL/min (70-130); Calcium 8.8 mg/dL (7.8-10.44); Carbon Dioxide 24 mmol/L (22-29); Chloride 96 mmol/L (98-107); Estimated GFR-MDRD 90; Globulin 2.5 g/dL (2.4-3.5); Glucose 79 mg/dL (70-105); Lipase 88 U/L (8-78); Potassium 4.9 mmol/L (3.5-5.1); Protein, Total 6.6 g/dL (6.0-8.3); Sodium 128 mmol/L (136-145)
--- NOTE | 2020-03-08 13:43 | RAD ---
PORTABLE CHEST ONE VIEW: 02/06/20 at 12:53 p.m. HISTORY: Chest pain. COMPARISON: 11/08/19. FINDINGS: The heart size is normal. The lungs are expanded without lobar consolidation, pneumothoraces, lottie p ulmonary edema or pleural effusions. IMPRESSION: No acute process. POS: [facility]
[2020-03-08] MEDS ORDERED: Acetaminophen 500 MG TAB ONE ×2 (14:22→14:33)
[2020-03-08] MEDS ORDERED: Nitroglycerin 2% Ointment 1 INCH/1 GM Packet ONE (14:56)
[2020-03-08 16:47] LABS: Troponin I 0.011 ng/mL (< 0.028)
[2020-03-08 17:11] VITALS: BMI 43.5
--- NOTE | 2020-03-08 17:56 | PDOC.HHP ---
Hospitalist HPI - History of Present Illness chest pain History of Present Illness: This is a 54 year old male with past medical history of hypothyroidism, hypertension, afib s/p ablation who presented to the Er with chest pain. The patient states that his chest pain started at 3 am this morning. It was a sharp pain on the left side of his chest and radiated to his left arm. He states the pain increased to a 10 and he felt short of breath. His pain lasted about ten minutes and improved with aspirin and nitroglycerin that he received during the ambulance. He was sitting up on the edge of his bed when the pain started. Now his pain is down to a 3/10. He states he has been having shortness of breath on exertion after walking 3-4 feet over the past month as well as chest tightness on exertion. Three days ago he felt lightheaded and fell but did not pass out. He denies chest congestion, orthopnea, fevers, chills or cough. He denies abdominal pain, nausea or vomiting. ED Course: The patient presented to the ER with a blood pressure of 166/100. He stated he took his medications this morning except for his lasix. He had an EKG which showed atrial fibrillation. Troponin was negative x 2. Chest X ray was normal. The patient was admitted for further workup. Hospitalist ROS - Review of Systems Constitutional: denies: fever, chills Eyes: denies: pain, vision change ENT: denies: ear pain, ear discharge Respiratory: denies: cough, dry, shortness of breath Cardiovascular: denies: chest pain, palpitations, orthopnea Gastrointestinal: denies: nausea, vomiting, abdominal pain Genitourinary: denies: dysuria, frequency Musculoskeletal: denies: neck pain, shoulder pain, arm pain Neurological: denies: weakness, numbness, incoordination - Medication Medications: Losartan Metoprolol 100 mg daily Levothyroxine 125 mcg daily Hospitalist History - Past Medical History Heme/Onc: reports: no pertinent history Hepatobiliary: reports: no pertinent history Psych: reports: Anxiety Musculoskeletal: reports: Chronic low back pain Rheumatologic: reports: no pertinent history Renal/: reports: no pertinent history Endocrine: reports: Hypothyroidism Dermatology: reports: no pertinent history - Past Surgical History Past Surgical History: reports: Appendectomy Other Surgical History: Atrial fibrillation s/p ablation - Family History Other Family History: Sister has heart disesae Parents of heart disease - Social History Smoking Status: Current every day smoker (Has been using snuff since the age of 11. Quit smoking 20 years ago) Alcohol: reports: Occassional (beer) Drugs: reports: none Living Situation: With Family - Exam General Appearance: NAD, awake alert Eye: PERRL, anicteric sclera ENT: normocephalic atraumatic, no oropharyngeal lesions Neck: supple, no JVD Heart: RRR, no murmur, no gallops, no rubs Respiratory: CTAB, no wheezes, no rales, no ronchi Gastrointestinal: soft, non-tender, non-distended, normal bowel sounds Extremities: no cyanosis, no clubbing, no edema Skin: normal turgor, no lesions, no rashes Neurological: cranial nerve grossly intact, normal sensation to touch, no focal deficits, no new deficit Musculoskeletal: normal tone, normal strength, no muscle wasting Psychiatric: normal affect, normal behavior, A&O x 3, oriented to person Hospitalist Results - Labs Result Diagrams: 03/08/20 12:48 03/08/20 12:48 Lab results: WBC 8.8 thou/uL (4.8-10.8) 03/08/20 12:48 Hgb 12.9 g/dL (14.0-18.0) L 03/08/20 12:48 Hct 40.0 % (42.0-52.0) L 03/08/20 12:48 MCV 93.8 fL (78.0-98.0) 03/08/20 12:48 Plt Count 325 thou/uL (130-400) 03/08/20 12:48 Neutrophils % 61.5 % (42.0-75.0) 03/08/20 12:48 Sodium 128 mmol/L (136-145) L 03/08/20 12:48 Potassium 4.9 mmol/L (3.5-5.1) 03/08/20 12:48 Chloride 96 mmol/L (98-107) L 03/08/20 12:48 Carbon Dioxide 24 mmol/L (22-29) 03/08/20 12:48 BUN 7 mg/dL (8.4-25.7) L 03/08/20 12:48 Creatinine 0.88 mg/dL (0.7-1.3) 03/08/20 12:48 Glucose 79 mg/dL (70-105) 03/08/20 12:48 Calcium 8.8 mg/dL (7.8-10.44) 03/08/20 12:48 Total Bilirubin 0.8 mg/dL (0.2-1.2) 03/08/20 12:48 AST 21 U/L (5-34) 03/08/20 12:48 ALT 14 U/L (8-55) 03/08/20 12:48 Alkaline Phosphatase 63 U/L (40-110) 03/08/20 12:48 Creatine Kinase 49 U/L (30-200) 03/08/20 12:48 Troponin I 0.011 ng/mL (< 0.028) 03/08/20 16:06 B-Natriuretic Peptide 499.4 pg/mL (0-100) H 03/08/20 12:48 Serum Total Protein 6.6 g/dL (6.0-8.3) 03/08/20 12:48 Albumin 4.1 g/dL (3.5-5.0) 03/08/20 12:48 Lipase 88 U/L (8-78) H 03/08/20 12:48 Hospitalist H&P A/P - Plan Plan: This is a 54 year old male with past medical history of hypertension, hypothyroidism, atrial fibrillation s/p ablation presenting with chest pain Chest pain - likely angina Hypertensive urgency - EKG shows afib, mild T wave abnormality in lead III. Troponin negative x 2 - pain sounds suspicious, discussed with cardiology will start empiric lovenox - will place empirically on PPI due to history of peptic ulcer - aspirin 81 mg daily, atorvastatin 40 mg, will start coreg 6.25 mg bid and give imdur 30 mg daily - hold lisinopril in case of cath tomorrow - nitro SL prn - cardiology consult in the am History of peptic ulcer disease - endoscopy in 2019 shows small ulceration in stomach and large ulceration his bowels - currently patient has no abdominal pain Anemia - Hb 12. Will place on PPI empirically Hyponatremia - sodium 128, hold lasix for now Hypothyroidism - continue levothyroxine DVT prophylaxis: therapeutic lovenox Code status: full code HCP:
[2020-03-08] MEDS ORDERED: Furosemide 20 MG TAB PO SCH (18:00)
[2020-03-08] MEDS ORDERED: Nitroglycerin 0.4 MG TAB 1 EACH PO PRN (18:04)
[2020-03-08] MEDS ORDERED: Carvedilol 6.25 MG TAB PO SCH (18:15)
[2020-03-08 19:30] LABS: Troponin I Less than 0.010 ng/mL (< 0.028)
[2020-03-08] MEDS ORDERED: Atorvastatin Calcium 40 MG TAB PO SCH (21:00)
[2020-03-08] MEDS: Enoxaparin Sodium 40 MG/0.4 ML SYRINGE SC SCH (21:08)
[2020-03-08] MEDS: Pantoprazole 40 MG VIAL IVP SCH (21:08)
[2020-03-08] MEDS: Enoxaparin Sodium 100 MG/ML SYRINGE SC SCH (21:14)
[2020-03-08] MEDS: Acetaminophen 325 MG TAB PO PRN (21:46)
[2020-03-09] MEDS: Acetaminophen 325 MG TAB PO PRN ×2 (02:23→07:31)
[2020-03-09 04:38] LABS: Hemoglobin 12.1 g/dL (14.0-18.0); Mean Corpuscular HGB CONC 32.4 g/dL (32.0-36.0); Mean Corpuscular Hemoglobin 30.7 pg (27.0-31.0); Mean Corpuscular Volume 94.7 fL (78.0-98.0); Platelet Count 267 thou/uL (130-400); Red Blood Cell (RBC) Count 3.93 mill/uL (4.70-6.10); White Blood Cell (WBC) Count 8.8 thou/uL (4.8-10.8)
[2020-03-09 05:00] LABS: Anion Gap 12 mmol/L (10-20); BUN (Urea Nitrogen) 10 mg/dL (8.4-25.7); Calc. Creatinine Clearance 205 mL/min (70-130); Calcium 8.5 mg/dL (7.8-10.44); Carbon Dioxide 24 mmol/L (22-29); Cardiac Risk 2.7 (Less than 4.5); Chloride 96 mmol/L (98-107); Cholesterol 115 mg/dl (< 200 Desired); Estimated GFR-MDRD Greater than 90; Glucose 77 mg/dL (70-105); HDL Cholesterol 43 mg/dL (>60 Neg Risk); LDL Cholesterol, Calculated 59 mg/dL; Potassium 4.5 mmol/L (3.5-5.1); Sodium 127 mmol/L (136-145); Triglycerides 66 mg/dL (Less than 150)
[2020-03-09] MEDS: Pantoprazole 40 MG VIAL IVP SCH (07:32)
[2020-03-09 07:58] VITALS: TEMP 97.7
[2020-03-09] MEDS ORDERED: Carvedilol 6.25 MG TAB PO SCH (08:00)
[2020-03-09] MEDS ORDERED: Fioricet 325/50/40 mg Tablet PO PRN (08:18)
[2020-03-09] MEDS ORDERED: Aspirin 81 mg Enteric Coated Tablet PO SCH (09:00)
--- NOTE | 2020-03-09 10:53 | NM ---
Exam: Nuclear medicine cardiac stress HISTORY: Chest pain. COMPARISON: None TECHNIQUE: Patient was administered 30.70 mCi of technetium 99m sestamibi for stress only imaging Cardiac gating was performed FINDINGS: Homogeneous distribution of the radiotracer in the left ventricle. End-diastolic volume is 143 mL End systolic volume is 50 mL Cardiac gating: Normal wall motion and thickening. 65% ejection fraction IMPRESSION: 1. Homogeneous distribution of the radiotracer. 2. 65% ejection fraction
[2020-03-09] MEDS ORDERED: Sodium Chloride 0.9% 1,000 ML IV SCH (11:00)
[2020-03-09] MEDS ORDERED: Levothyroxine Sodium 125 MCG TAB PO SCH (11:00)
[2020-03-09] MEDS ORDERED: Losartan 25 MG TAB PO SCH ×2 (11:15→21:00)
[2020-03-09] MEDS: Enoxaparin Sodium 100 MG/ML SYRINGE SC SCH (11:28)
[2020-03-09] MEDS: Enoxaparin Sodium 40 MG/0.4 ML SYRINGE SC SCH (11:29)
[2020-03-09] MEDS ORDERED: Regadenoson 0.4 MG/5 ML SYRINGE ONE (12:10)
[2020-03-09 15:12] VITALS: BP 162/95
--- NOTE | 2020-03-09 15:32 | DIS ---
DATE OF ADMISSION: 03/08/2020 DATE OF DISCHARGE: 03/09/2020 DISCHARGE DIAGNOSES: 1. Chest pain possibly secondary to hypertensive urgency versus anxiety. 2. Anemia. 3. Hyponatremia. BRIEF HISTORY OF PRESENT ILLNESS: This is a 54-year-old male with past medical history of hypothyroidism, hypertension, atrial fibrillation, status post ablation, who presented to the emergency room with chest pain. The patient reported that his chest pain had started at 3:00 a.m. and radiated to his left arm. His pain was relieved with nitroglycerin and aspirin. When he came to the ER, his blood pressure was 166/100. The patient reported compliance with all his medications. He had an EKG, which showed atrial fibrillation. His troponin was negative. He was then admitted for further workup. HOSPITAL COURSE: 1. Chest pain/hypertensive urgency: The patient had 3 sets of troponins, which were negative. Initially, he was started on empiric Lovenox due to suspicious symptoms of angina. He did undergo a nuclear stress test, which was normal. Cardiology was consulted and felt his chest pain could have been secondary to uncontrolled hypertension. His losartan was increased to 50 mg twice daily. He was resumed on his metoprolol 100 mg p.o. b.i.d. and was also given a prescription for Imdur 30 mg daily to take if his blood pressure is still uncontrolled with other 2 medicines. He will follow up with Dr. Ayala in 1 month. 2. Hyponatremia: The patient's sodium level was noted to be 127. He possibly has a component of SIADH. He was advised to follow a 1.8 L fluid restriction and have a BMP repeated with his PCP in a week to follow this up. 3. Anemia: The patient's Hb was 12. He does have a history of a bleeding peptic ulcer in the past. He is placed on PPI empirically while in the hospital. He should follow up with his PCP in a week to have this further worked up. DISCHARGE PHYSICAL EXAMINATION: VITAL SIGNS: Temperature 97.7, HR 84, RR 16, oxygen saturation 97% on room air, and BP 139/82. GENERAL: The patient is alert, awake, and oriented x3. CVS: Regular rate and rhythm with no murmurs, rubs, or gallops. LUNGS: Clear to auscultation bilaterally. ABDOMEN: Positive bowel sounds. Soft, nontender, and nondistended. EXTREMITIES: No edema. PERTINENT LABORATORY DATA: CBC on 03/09: White count 8.8, hemoglobin 12.1, hematocrit 37.2, and platelet count of 267. BMP on 03/09: Sodium 127. Rest of BMP unremarkable. Troponin I: Less than 0.010 x3. BNP: 499.4. Lipase: 88. Lipid panel: Cholesterol 115, triglycerides 66, LDL 59, and HDL 43. D-dimer: Less than 0.27. Chest x-ray on 03/08: No acute process. Stress test on 03/09: Shows a 65% ejection fraction. Normal stress test. Echo: Shows atrial fibrillation, EF 60% to 65%. Probable diastolic dysfunction. [id number] MR. DISCHARGE CONDITION: Stable. ACTIVITY: As tolerated. DIET: 1.8 L fluid restriction. DISCHARGE INSTRUCTIONS: The patient should follow up with his PCP in a week to recesses his anemia, his blood pressure, and his chest pain. He should also have a repeat BMP to reassess hyponatremia. He should follow up with Dr. Ayala in 1 month. Job ID: [id number] MTDD
[2020-03-10] MEDS ORDERED: Levothyroxine Sodium 125 MCG TAB PO SCH (06:00)
== END 2020-03-09 15:14 | disposition home or self-care (01) ==
LOC: ERS 12:24 → 2NO 16:15
PROVIDERS: ADMIT Internal Medicine; ATTEND Internal Medicine
DX: I16.0 Hypertensive urgency (principal); R07.9 Chest pain, unspecified; D64.9 Anemia, unspecified; E87.1 Hypo-osmolality and hyponatremia; E03.9 Hypothyroidism, unspecified; I10 Essential (primary) hypertension; I48.91 Unspecified atrial fibrillation; F17.200 Nicotine dependence, unspecified, uncomplicated; Z79.899 Other long term (current) drug therapy; Z88.0 Allergy status to penicillin; Z88.1 Allergy status to other antibiotic agents; Z88.6 Allergy status to analgesic agent
CPT/HCPCS: 71045; 78452; 80048; 80053; 80061; 82550; 83690; 83880; 84484 ×2; 85025; 85027; 85379; 93005; 93017; 93306; 96372; 99285; A9500; G0378 ×3; 36415; C9113; J1650; J2785

== ENCOUNTER 2020-04-28 10:54 | Emergency (ER) | payer MEDICARE, OTHER ==
[2020-04-28] MEDS ORDERED: traMADol HCl 50 MG TAB ONE (11:44)
[2020-04-28] MEDS ORDERED: Sulfameth/Trimethoprim DS 800-160mg TAB ONE (11:45)
[2020-04-28] MEDS ORDERED: Adacel (T-DAP) 0.5 ML SYRINGE ONE (11:45)
[2020-04-28] MEDS ORDERED: Cephalexin 250 MG CAP ONE (11:45)
--- NOTE | 2020-04-28 12:01 | RAD ---
XR Finger(s) Lt Min 2 View History: Redness and pain Comparison: None. Findings: Soft tissue swelling surrounding the middle finger. Moderate narrowing of the middle finger intercarpal phalangeal joint. No erosions or periostitis. Impression: Circumferential soft tissue swelling without underlying osseous abnormality.
== END 2020-04-28 12:35 | disposition home or self-care (01) ==
LOC: ERS 10:54
DX: L03.012 Cellulitis of left finger (principal); I49.9 Cardiac arrhythmia, unspecified; I48.91 Unspecified atrial fibrillation; E03.9 Hypothyroidism, unspecified; I10 Essential (primary) hypertension; J45.909 Unspecified asthma, uncomplicated; F32.9 Major depressive disorder, single episode, unspecified; F17.220 Nicotine dependence, chewing tobacco, uncomplicated; Z23 Encounter for immunization; Z79.899 Other long term (current) drug therapy
CPT/HCPCS: 90715

== ENCOUNTER 2020-05-01 11:42 | Inpatient (IN) | payer MEDICARE, OTHER ==
[~2020-05-01 11:42] MED LIST changes: +Dexamethasone 20 MG/5 ML VIAL ONE; -Iopamidol 370 76% 100 ML VIAL ONE; +Lidocaine 1% PF 5 ML VIAL ONE; +Ondansetron PF 4 MG/2 ML Vial ONE; +PROPOFOL 200 MG/20 ML VIAL ONE
--- NOTE | 2020-05-01 12:28 | RAD ---
RADIOGRAPH LEFT HAND 3VIEWS: DATE: 05/01/2020 HISTORY: 54-year-old male with left and swelling and pain FINDINGS: There is no evidence of fracture or dislocation. There is no evidence of periostitis, permeative lesi on, osteolytic lesion, or osteoblastic lesion. Mild DJD at first CMC. Mild DJD at third MCP. Diffuse soft tissue swelling. No soft tissue calcifications. No radiopaque foreign body. IMPRESSION: 1. Diffuse soft tissue swelling edema. 2. No destructive osseous lesion.
[2020-05-01 13:01] LABS: #Basophils 0.1 thou/uL (0.0-0.2); #Eosinphils 0.3 thou/uL (0.0-0.7); #Lymphocytes 1.5 thou/uL (1.20-3.40); #Monocytes 0.6 thou/uL (0.11-0.59); #Neutrophils 6.5 thou/uL (1.40-6.50); %Basophils 0.6 % (0.0-1.0); %Eosinophils 3.8 % (0.0-10.0); %Lymphocytes 17.1 % (21.0-51.0); %Monocytes 6.9 % (0.0-10.0); %Neutrophils 71.7 % (42.0-75.0); Hemoglobin 11.8 g/dL (14.0-18.0); Mean Corpuscular HGB CONC 32.4 g/dL (32.0-36.0); Mean Corpuscular Hemoglobin 30.8 pg (27.0-31.0); Mean Corpuscular Volume 95.1 fL (78.0-98.0); Mean Platelet Volume 7.1 fL (7.4-10.4); Platelet Count 296 thou/uL (130-400); RBC Distribution Width 14.8 % (11.5-14.5); Red Blood Cell (RBC) Count 3.84 mill/uL (4.70-6.10)
[2020-05-01 13:23] LABS: ALT (SGPT) 15 U/L (8-55); AST (SGOT) 30 U/L (5-34); Albumin 3.8 g/dL (3.5-5.0); Alkaline Phosphatase 66 U/L (40-110); Anion Gap 13 mmol/L (10-20); BUN (Urea Nitrogen) 13 mg/dL (8.4-25.7); Bilirubin, Total 0.3 mg/dL (0.2-1.2); Calc. Creatinine Clearance 0 mL/min (70-130); Carbon Dioxide 22 mmol/L (22-29); Chloride 102 mmol/L (98-107); Estimated GFR-MDRD 66; Globulin 3.2 g/dL (2.4-3.5); Glucose 83 mg/dL (70-105); Potassium 5.9 mmol/L (3.5-5.1); Sodium 131 mmol/L (136-145)
[2020-05-01 14:39] LABS: INR-International Normal Ratio 1.1; PTT 28.3 sec (22.9-36.1); Prothrombin Time 14.3 sec (12.0-14.7)
--- NOTE | 2020-05-01 14:57 | RAD ---
Chest AP view INDICATION: Preop evaluation COMPARISON: March 08, 2020 FINDINGS: Lungs: There is slight crowding of the pulmonary vasculature: Both lower lobes likely related to hyp oventilation. No airspace consolidation is evident. Cardiac silhouette: Mild cardiomegaly is stable. Pulmonary vasculature: Normal Pleural spaces: No pleural effusion or pneumothorax is demonstrated. Upper abdomen: No abnormality seen. Osseous structures: No acute osseous abnormality. Additional findings: None. IMPRESSION: Stable mild cardiomegaly. Mild hypoventilation. No additional acute abnormality.
[2020-05-01] MEDS ORDERED: Fentanyl 100 MCG/2 ML VIAL ONE ×3 (19:07→22:29)
[2020-05-01] MEDS ORDERED: Bacitracin Zinc Ointment 30 gm TUBE ONE (19:19)
[2020-05-01] MEDS ORDERED: Sodium Chloride 0.9% 30 ML ONE (19:19)
[2020-05-01] MEDS ORDERED: Thrombin 5000 UNITS/5 ML VIAL ONE (19:19)
[2020-05-01] MEDS ORDERED: Bupivacaine PF 0.5% 30 ML VIAL ONE (19:19)
[2020-05-01] MEDS ORDERED: Promethazine HCl 25 MG/ML VIAL IM PRN (23:44)
[2020-05-01] MEDS ORDERED: traMADol HCl 50 MG TAB PO PRN (23:44)
[2020-05-01] MEDS ORDERED: Morphine 4 MG/ML VIAL SLOW IVP PRN (23:44)
[2020-05-01] MEDS ORDERED: Ondansetron PF 4 MG/2 ML Vial IV PRN (23:44)
[2020-05-01] MEDS ORDERED: Communication Order-Pharmacy FS SCH (23:45)
[2020-05-01] MEDS ORDERED: Meperidine HCl/PF 25 MG/ML VIAL IM PRN (23:48)
[2020-05-02] MEDS ORDERED: Vancomycin 1 GM in Premix Bag 1 BAG IVPB SCH ×2 (00:15→09:00)
[2020-05-02] MEDS ORDERED: TETANUS AND DIPHTHERIA TOX/PF 0.5 ML DISP.SYRIN IM SCH (00:15)
[2020-05-02 01:13] VITALS: BMI 43.1
[2020-05-02] MEDS: HYDROcodone/Acetaminophen 5/325 mg Tablet PO PRN ×5 (01:49→22:06)
[2020-05-02] MEDS: Ketorolac Tromethamine 30 MG/ML VIAL IVP SCH ×2 (02:57→05:54)
[2020-05-02] MEDS ORDERED: Famotidine/PF 20 mg/2ml Vial SLOW IVP SCH (09:00)
[2020-05-02] MEDS: Fentanyl 100 MCG/2 ML VIAL SLOW IVP PRN ×4 (09:19→22:06)
[2020-05-02] MEDS: Aspirin 81 mg Enteric Coated Tablet PO SCH ×2 (09:21→20:21)
[2020-05-02] MEDS: Sodium Chloride 0.9% 1,000 ML IV SCH ×2 (09:25→13:53)
--- NOTE | 2020-05-02 10:42 | OP ---
DATE OF PROCEDURE: 05/01/2020 PREOPERATIVE DIAGNOSES: 1. Middle finger abscess with probable flexor tendon sheath findings. FINDINGS: Gross purulence beginning between the A4 and A3 lila in the tendon sheath with mucopurulent all the way to the A1 lila site. PROCEDURES PERFORMED: 1. Incision and drainage of abscess to include a periungual abscess on the radial side of the same digit followed by a flexor sheath abscess beginning from a small puncture wound just distal to the distal interphalangeal joint flexion crease. 2. Flexor tendon sheath drainage with irrigation using indwelling catheter. SPECIMENS SENT: Yes, cultures of both the fluid and gross purulence as separate cultures. INDICATION: The patient reports a 3- to 4-day increased pain, erythema, inability to flex and then finally inability to extend his finger with uncertain etiology as he did not recall a bite, puncture wound, or specific incident. He presented to the hospital today with multiple Kanavel signs to include clinical erythema, a small punctate lesion at as described above just distal flexion crease on the palmar surface. ANESTHESIA: General and LMA technique, augmented by 20 mL of 0.5% Marcaine block at the metacarpophalangeal level with no epinephrine. DESCRIPTION OF PROCEDURE: After successful general endotracheal anesthesia, the limb was prepped and draped. Time-out was done appropriately. The patient then had the left lower extremity prepped and draped and the digit had a zigzag incision outlined, beginning over the distal interphalangeal flexion crease, 1 cm distal and 2 cm proximal. We also outlined a 1 cm incision on the opposite side of the digit periungual. We entered the periungual incision and there was a small amount of mucopurulence. This was cultured. We then entered the primary incision area. We carried through skin and subcutaneous tissue, identified neurovascular bundle and protected it. All rami protected along with that. Beginning subcutaneously, there was some mucopurulence and some early thick oneill green purulence and then we expressed the flexor tendon sheath, it was already opened in between A4 and A3 lila on the radial side and we entered this and there was mucopurulence that escaped. We then extended the incision proximal to the A3 lila and opened the flexor sheath between the A2 and A3 lila and found mucopurulent, oneill green here, we debrided grossly with hemostats, and then irrigated the area. Because there was gross purulence here and swelling proximal to this incision, we then made a 1.5 cm incision using the same approach we used for A1 lila release and visualized the flexor tendon sheath proximal to the A1 lila and there was early thick fluid here. We then placed a Pollack catheter inside the tendon sheath and irrigated the tendon sheath from the A1 lila underneath the A2 through the A3 lila. We then irrigated between the A3 and A4 lila using the same Pollack catheter. We used 1 L of irrigation, irrigated the remainder with bulb syringe pressure the remainder of the wounds until that were clean. We again sent cultures include mucopurulence and thick mucopurulence from the flexor sheath and the fluid from the flexor sheath. At this point, the wound was dressed open. Tourniquet deflated with a tourniquet time of 17 minutes. The patient then had normal saline soaked 4x4 packed into each of the incisions, a bulky dressing with 4x4s and Kerlix applied along with a small 3-inch Babar wrap and the patient left the operating room with a pink digit and no evidence of anesthetic or operative complication. Job ID: [id number]
--- NOTE | 2020-05-02 12:22 | CON ---
DATE OF CONSULTATION: PRIMARY CARE PHYSICIAN: Frederick Arvizu MD. PRIMARY TEAM: Hand surgery, Dr. Kenyon. REASON FOR CONSULTATION: Medical management. HISTORY OF PRESENT ILLNESS: This is a 54-year-old white male with a known history of atrial fibrillation, hypertension, diastolic dysfunction, and peptic ulcer disease with previous GI bleeds. He presented to the emergency room after spontaneous development of a cellulitis of the left middle finger. He was attempted to be treated with outpatient antibiotics; however, this did not improve, so he returned to the ER, Dr. Kenyon evaluated him and took him back for surgical drainage. The patient is now doing well postoperatively and we have been consulted for medical management. REVIEW OF SYSTEMS: CONSTITUTIONAL: No fevers, no chills. EYES: No new double vision or blurred vision. The patient does have chronic blurred vision of the right eye from a severe cataract that he needs to have removed. ENT: No congestion, drainage, or sore throat. CARDIOVASCULAR: No chest pain, no palpitations or racing heart. PULMONARY: No coughing, wheezing or shortness of breath. GASTROINTESTINAL: No abdominal pain. No nausea or vomiting. No diarrhea or constipation. GENITOURINARY: No dysuria or hematuria. MUSCULOSKELETAL: He has chronic low back pain and pain in bilateral lower extremities. SKIN: He had cellulitis, redness and swelling of the left middle finger as per HPI, but no other skin rashes noted. NEUROLOGIC: The patient has some intermittent numbness in his bilateral lower extremities and he has shooting pains from his low back down to his bilateral lower extremities from chronic sciatica. No new focal neurologic symptoms. PAST MEDICAL HISTORY: 1. Chronic atrial fibrillation, not on anticoagulation due to previous GI bleed. 2. History of SVT with previous ablation. 3. Hypertension. 4. Diastolic dysfunction without history of congestive heart failure per patient's report. 5. Peptic ulcer disease with previous gastrointestinal bleeding. 6. Gout. 7. Benign prostatic hyperplasia. 8. Chronic pain syndrome. 9. Obstructive sleep apnea, resolved after weight loss. 10. Hypothyroidism. 11. Chronic venous insufficiency to bilateral lower extremities. PAST PSYCHIATRIC HISTORY: 1. Depression. 2. Anxiety. PAST SURGICAL HISTORY: 1. Gastric bypass surgery. 2. Left knee replacement. 3. Carpal tunnel surgery of the right wrist. 4. Eye surgery for a traumatic penetration injury to the left eye. 5. Back surgery. 6. Appendectomy. 7. Tonsillectomy. 8. I and D of left middle finger as per HPI. 9. Cardiac ablation. 10. EGD with cautery of bleeding ulcer. SOCIAL HISTORY: The patient does drink a small amount of alcohol daily. No illicit drug use. He chews tobacco. He lives at home with his . He is a full code and his would be his medical decision maker. FAMILY HISTORY: Father with prostate cancer. Mother with heart disease. One sister with diabetes. ALLERGIES: 1. AUGMENTIN. 2. NEOSPORIN. 3. IBUPROFEN. 4. LEVAQUIN. CURRENT MEDICATIONS: 1. Cephalexin 500 mg 4 times daily. 2. Celebrex 200 mg daily. 3. Amitriptyline 50 mg at night. 4. Aspirin 81 mg daily. 5. Isosorbide mononitrate 60 mg daily. 6. Levothyroxine 125 mcg daily. 7. Losartan 50 mg twice daily. 8. Metoprolol tartrate 100 mg twice daily. 9. Sertraline 50 mg twice daily. 10. Tramadol 50 mg every 8 hours as needed for pain. PHYSICAL EXAMINATION: VITAL SIGNS: Blood pressure 120/82, pulse 88, respirations 16, O2 saturation 98% on room air, temperature 98.1. GENERAL: Well-developed obese white male, in no acute distress. HEENT: The patient with a slightly deformed pupil on the left. Otherwise, pupils are round and equally reactive to light. He does have a dense cataract in the right eye. Oropharynx clear without lesions, erythema, or exudate. NECK: Supple. No lymphadenopathy. No thyroid nodules or enlargement. No JVD. HEART: Irregularly irregular rhythm with normal rate. No murmurs, rubs, or gallops. LUNGS: Clear to auscultation bilaterally. No wheezes, crackles, or rhonchi. ABDOMEN: Soft, obese, nontender to palpation. Normoactive bowel sounds. No hepatosplenomegaly or other masses. EXTREMITIES: The patient has had a dressing to his left hand, specifically including his left middle finger. No cellulitis seen extending beyond his surgical dressing. No swelling beyond the surgical dressing as well. He does have some bilateral chronic appearing lower extremity edema. SKIN: No visible rashes other than what is covered by his surgical dressing. No other skin lesions. NEUROLOGIC: The patient moves all extremities equally. No facial droop. PSYCHIATRIC: Alert, orient x3. Normal mood and affect. LABORATORY DATA: CBC with a normal white blood cell count of 9.0, normal bands, hemoglobin 11.8, hematocrit 36.5, platelet count normal. Coagulation profile normal. Complete metabolic panel is notable for a sodium of 131 and a potassium of 5.9. The rest is normal. Lactic acid was negative at 0.9. IMAGIN. Hand x-ray done in the emergency room shows soft tissue swelling of the left 3rd digit and some mild degenerative changes, but no destructive osseous lesions. 2. Chest x-ray done in the emergency room, I did review the films along with the radiologist's report. It does show stable mild cardiomegaly with mild hypoventilation, but no acute abnormalities. 3. EKG done in the emergency room shows atrial fibrillation with controlled rate in the 70s with no ST-segment changes or T-wave peaking or inversions. ASSESSMENT: 1. Cellulitis of the finger, status post incision and drainage, followed by Dr. Kenyon and on antibiotics with cultures pending. Dr. Kenyon has also asked Dr. Aguirre to assist. 2. Hyperkalemia. The patient has had some mild hyperkalemia in the past, never this high before. It shows no danger signs of the EKG, has received IV fluids. Due to his infection, we will recheck a potassium this afternoon. If remains elevated, we will need to hold his losartan and possibly get Nephrology involved. 3. Hypertension. We will resume the patient's home blood pressure medications. If the potassium remains elevated, we will need to hold the losartan, however. 4. Diastolic dysfunction. We will watch closely for any evidence of fluid overload as we hydrate him to treat the infection. 5. Peptic ulcer disease with previous bleeding ulcers. We will put the patient on proton pump inhibitor daily. 6. Deep venous thrombosis prophylaxis. Put the patient on sequential compression devices while in bed. CODE STATUS: The patient is a full code. Should he be incapacitated, his would be his medical decision maker, her name is Roshan Wiggins. Job ID: [id number]
[2020-05-02] MEDS ORDERED: Polyethylene Glycol 3350 17 GM Packet PO PRN (13:21)
[2020-05-02] MEDS ORDERED: Senokot S 8.6-50 MG TAB PO PRN (13:21)
[2020-05-02 15:50] LABS: Potassium 5.8 mmol/L (3.5-5.1)
[2020-05-02] MEDS: cefTRIAXone\\ROCEPHIN 2 GM in Sodium Chloride 0.9% 100 ML IVPB SCH (18:12)
[2020-05-02] MEDS: Acetaminophen/Codeine 30-300mg Tablet PO PRN (20:21)
[2020-05-02] MEDS: Amitriptyline HCl 25 MG TAB PO SCH (20:21)
[2020-05-02] MEDS: Metoprolol Tartrate 50 MG TAB PO SCH (20:21)
[2020-05-02] MEDS: Losartan 25 MG TAB PO SCH (20:21)
[2020-05-03] MEDS: HYDROcodone/Acetaminophen 5/325 mg Tablet PO PRN ×5 (04:03→22:32)
[2020-05-03] MEDS: Fentanyl 100 MCG/2 ML VIAL SLOW IVP PRN (04:04)
[2020-05-03] MEDS: Levothyroxine Sodium 125 MCG TAB PO SCH (05:46)
[2020-05-03] MEDS: Sodium Chloride 0.9% 1,000 ML IV SCH ×2 (05:46→20:01)
--- NOTE | 2020-05-03 06:06 | CON ---
DATE OF CONSULTATION: 05/02/2020 REASON FOR CONSULTATION: Left 3rd digit infection. HISTORY OF PRESENT ILLNESS: A 54-year-old with history of cardiomyopathy, atrial fibrillation, hypertension, [place] [facility] [place] his and for about a week had noticed inflammatory changes of the entire left middle finger. He had been treated with oral antimicrobials initially, but that failed, so he was eventually admitted. Dr. Kenyon had to intervene. He basically carried out incision and drainage of abscess at the periungual space and there was also a flexor sheath abscess beginning from a small puncture wound just distal to the distal interphalangeal joint flexion crease. This tendon sheath was irrigated with an indwelling catheter. Cultures were submitted. Currently, patient is in no acute distress, he is sitting in bed. He is oriented. Denies headaches. No visual symptoms, sore throat, odynophagia, dysphagia. No cough, sputum production or chest pain. No abdominal pain. No genitourinary symptoms. No diarrhea. He states that he has chronic swelling of the right calf compared with the left and also noticed edema and what he describes as poor circulation of the hands. PAST MEDICAL HISTORY: Cardiomyopathy, arrhythmia, atrial fibrillation, hypothyroidism, hypertension, gastric ulcers, asthma, heart ablation for atrial fibrillation management, history of gastric bypass, partial left knee replacement, left shoulder rotator cuff surgery. SOCIAL HISTORY: He drinks daily less than 5 drinks per day. Former smoker. Currently chews tobacco. . ALLERGIES: AMOXICILLIN, BACITRACIN, LEVAQUIN, POLYMYXIN. CURRENT MEDICATION LIST: 1. Zoloft. 2. Levothyroxine. 3. Losartan. 4. Metoprolol. 5. Bactrim. 6. Keflex. 7. Tramadol. 8. Currently he is receiving [place]. 9. Elavil. 10. Ecotrin. 11. Sublimaze. 12. Imdur. 13. Synthroid. 14. Cozaar. 15. Demerol. 16. Lopressor. 17. Zofran. 18. MiraLax. 19. Vancomycin. FAMILY HISTORY: Noncontributory. CURRENT PHYSICAL EXAMINATION: GENERAL: Somewhat chronically ill appearing, disheveled middle-aged male, in no acute distress. VITAL SIGNS: Temperature has been normal, blood pressure 130/84, pulse 78, respirations 16, and O2 saturation 92% to 98%. SKIN: Exam shows the left hand with dressing, which was not removed. The patient has a peripheral IV access and is voiding in the toilet. LYMPH: No lymphadenopathy. HEENT: Ocular movements conjugate. Oral cavity with quite a few missing teeth. Oral mucosa is normal. NECK: Supple. No jugular vein distention. BACK: No back tenderness. LUNGS: Symmetric clear breath sounds. HEART: S1, S2, regular rate. No murmurs. ABDOMEN: Soft, not distended or tender. No ascites. No bladder distention. EXTREMITIES: There is evidence of stasis dermatitis and venous hypertension in lower extremities. The right calf is bigger than the left. There was no evidence of joint inflammatory activity outside the area of involvement. Pulses are 1+ in dorsalis pedis. He is able to move extremities. NEUROLOGIC: His cognitive function appears to be intact. LABORATORY DATA: White cell count 9.0, hemoglobin 11.8, platelets 296 with 71% neutrophils. INR 1.1. Sodium 131, creatinine 1.15. Liver profile normal. Microbiology, we have 2 sets of blood cultures, no growth thus far. We have a Gram stain from the samples obtained by Dr. Kenyon with no organisms seen and rare WBCs. The other ones also did not show any organism isolated. ASSESSMENT: 1. Cardiomyopathy with atrial fibrillation with prior ablation and pacemaker. 2. Evidence of some vascular insufficiency in upper extremities with somewhat cyanotic distal elements of the right and left hand. 3. Paronychia with a puncture and tenosynovitis of the left middle finger. DISCUSSION: The differential diagnosis includes bacterial versus fungal versus mycobacterial tenosynovitis and paronychia. We will ask the lab to see if they have samples for us to run cultures for fungi and mycobacterium. It looks like he might have some vascular issues with his upper extremities and it may be worthwhile to do a duplex ultrasound to see if there are any areas of obstruction. He seems to be a vasculopath with likely coronary disease and peripheral vascular disease. This might affect the outcome of this intervention. Hopefully, something will grow from the cultures. Otherwise, the risk of having an atypical pathogen will increase proportionally. In the meantime, we will add gram-negative coverage to his current regimen. Job ID: [id number]
--- NOTE | 2020-05-03 07:38 | PDOC.HOSPP ---
- Subjective Encounter Date: 05/03/20 Encounter Time: 15:00 Subjective: Patient with some soreness of this palm where surgery done. No other complaints. Denies taking recent fluid pills or potassium supplements, though thinks the losartan was a newer medication. - Objective Vital Signs & Weight: Vital Signs (12 hours) Temp Pulse Resp BP Pulse Ox 05/03/20 03:50 97.9 F 71 17 126/88 93 L 05/02/20 23:55 98.6 F 100 16 123/81 93 L 05/02/20 20:10 98.3 F 102 H 16 158/96 H 100 Weight Weight 318 lb I&O: 05/02/20 05/03/20 05/04/20 06:59 06:59 06:59 Intake Total 480 1950 Balance 480 1950 Result Diagrams: 05/01/20 12:53 05/03/20 07:07 Hospitalist ROS - Review of Systems Constitutional: denies: fever, chills Respiratory: denies: cough, shortness of breath Cardiovascular: denies: chest pain, palpitations Gastrointestinal: denies: nausea, vomiting, abdominal pain - Medication Medications: Active Medications Generic Name Dose Route Start Last Admin Trade Name Freq PRN Reason Stop Dose Admin Acetaminophen/Codeine Phosphate 1 tab 05/01/20 23:44 05/02/20 20:21 Tylenol #3 PO 1 tab Q4H PRN Administration Moderate Pain (4-6) Hydrocodone Bitart/Acetaminophen 1 tab 05/01/20 23:44 05/03/20 04:03 [place] 5/325 PO 1 tab Q4H PRN Administration Moderate Pain (4-6) Amitriptyline HCl 50 mg 05/02/20 21:00 05/02/20 20:21 Elavil PO 50 mg HS MARY Administration Aspirin 81 mg 05/02/20 09:00 05/02/20 20:21 Ecotrin PO 81 mg BID MARY Administration Fentanyl 50 mcg 05/01/20 23:44 05/03/20 04:04 Sublimaze SLOW IVP 50 mcg Q30M PRN Administration Severe breakthrough pain Vancomycin HCl 2 gm/ Sodium 500 mls @ 250 mls/hr 05/02/20 14:00 05/03/20 01: 24 Chloride IVPB 500 mls 0200,1400 MARY Administration Sodium Chloride 1,000 mls @ 100 mls/hr 05/02/20 08:45 05/03/20 05:46 Normal Saline 0.9% IV 1,000 mls .Q10H MARY Administration Ceftriaxone Sodium 2 gm/ 100 mls @ 200 mls/hr 05/02/20 18:00 05/02/20 18:12 Sodium Chloride IVPB 100 mls Q24HR MARY Administration Levothyroxine Sodium 125 mcg 05/03/20 06:00 05/03/20 05:46 Synthroid PO 125 mcg 0600 MARY Administration Losartan Potassium 50 mg 05/02/20 21:00 05/02/20 20:21 Cozaar PO 50 mg BID MARY Administration Meperidine HCl 25 mg 05/01/20 23:48 05/02/20 05:30 Demerol IM 25 mg Q6H PRN Administration .SEVERE PAIN Metoprolol Tartrate 100 mg 05/02/20 21:00 05/02/20 20:21 Lopressor PO 100 mg BID MARY Administration - Exam General Appearance: NAD, awake alert ENT: moist mucosa Heart: RRR, no murmur, no gallops, no rubs Respiratory: CTAB, no wheezes, no rales, no ronchi Gastrointestinal: soft, non-tender, non-distended, normal bowel sounds Extremities - other findings: dressing to left hand c/d/i Psychiatric: normal affect, normal behavior, A&O x 3 Hosp A/P (1) Hyperkalemia Code(s): E87.5 - HYPERKALEMIA Status: Acute (2) Hypertension Code(s): I10 - ESSENTIAL (PRIMARY) HYPERTENSION Status: Chronic Qualifiers: (3) Atrial fibrillation with controlled ventricular rate Code(s): I48.91 - UNSPECIFIED ATRIAL FIBRILLATION Status: Chronic (4) CKD (chronic kidney disease), stage II Code(s): N18.2 - CHRONIC KIDNEY DISEASE, STAGE 2 (MILD) Status: Chronic (5) Hypothyroidism Code(s): E03.9 - HYPOTHYROIDISM, UNSPECIFIED Status: Chronic (6) Hx of gastric bypass Code(s): Z98.84 - BARIATRIC SURGERY STATUS Status: Chronic (7) Tobacco abuse Code(s): Z72.0 - TOBACCO USE Status: Chronic (8) Morbid obesity Code(s): E66.01 - MORBID (SEVERE) OBESITY DUE TO EXCESS CALORIES Status: Chronic (9) Peptic ulcer disease Code(s): K27.9 - PEPTIC [facility], SITE UNSP, UNSP AC OR CHR, W/O HEMOR OR PERF Status: Chronic - Plan Patient with persistent moderate hyperkalemia. Will hold ARB, continue fluids. Will consult nephrology. Possibly due to losartan being added recently to BP regimen. No EKG changes or symptoms. Continue other antihypertensives. DVT proph: SCDs GI proph: Protonix for his known gastric ulcers
[2020-05-03 07:40] LABS: Anion Gap 18 mmol/L (10-20); BUN (Urea Nitrogen) 14 mg/dL (8.4-25.7); Calc. Creatinine Clearance 174 mL/min (70-130); Calcium 8.4 mg/dL (7.8-10.44); Carbon Dioxide 15 mmol/L (22-29); Chloride 108 mmol/L (98-107); Estimated GFR-MDRD 79; Glucose 82 mg/dL (70-105); Potassium 5.7 mmol/L (3.5-5.1); Sodium 135 mmol/L (136-145)
[2020-05-03] MEDS: Metoprolol Tartrate 50 MG TAB PO SCH ×2 (08:39→20:00)
[2020-05-03] MEDS: Aspirin 81 mg Enteric Coated Tablet PO SCH ×2 (08:39→20:00)
[2020-05-03] MEDS: Acetaminophen/Codeine 30-300mg Tablet PO PRN ×3 (11:33→20:01)
[2020-05-03 13:26] LABS: Vancomycin, Trough 20.9 ug/mL
[2020-05-03] MEDS: Vancomycin HCl 1.75 GM in Sodium Chloride 0.9% 500 ML IVPB SCH (14:22)
[2020-05-03] MEDS: cefTRIAXone\\ROCEPHIN 2 GM in Sodium Chloride 0.9% 100 ML IVPB SCH (17:36)
--- NOTE | 2020-05-03 19:00 | CON ---
DATE OF CONSULTATION: 05/03/2020 CONSULTING PHYSICIAN: Dr. Lopez. REASON FOR CONSULTATION: Hyperkalemia. REASON FOR ADMISSION: Cellulitis of the left middle finger. HISTORY OF PRESENT ILLNESS: This is a 54-year-old male, with history of SVT, hypertension, diastolic dysfunction, BPH, morbid obesity, came to the hospital with above complaints, was found to have hyperkalemia. He was on angiotensin receptor blockade, which was on hold and still potassium did not better and Nephrology consulted. The patient also complains of constipation. No problems with urination. No shortness of breath. No swelling. No chest pain. PAST MEDICAL HISTORY: Positive for atrial fibrillation, SVT, hypertension, diastolic dysfunction, peptic ulcer disease, gout, BPH, obstructive sleep apnea, hypothyroidism, chronic venous insufficiency. PAST SURGICAL HISTORY: Gastric bypass, left knee surgery, carpal tunnel surgery, eye surgery, back surgery, appendectomy, tonsillectomy, I and D's, cardiac ablation. HOME MEDICATIONS: Reviewed. ALLERGIES: AUGMENTIN, NEOSPORIN, IBUPROFEN, LEVAQUIN. SOCIAL HISTORY: No smoking, alcohol, or illicit drugs. FAMILY HISTORY: No history of kidney disease. REVIEW OF SYSTEMS: The following complete review of systems was negative, unless otherwise mentioned in the HPI or below: Constitutional: Weight loss or gain, ability to conduct usual activities. Skin: Rash, itching. Eyes: Double vision, pain. ENT/Mouth: Nose bleeding, neck stiffness, pain, tenderness. Cardiovascular: Palpitations, dyspnea on exertion, orthopnea. Respiratory: Shortness of breath, wheezing, cough, hemoptysis, fever or night sweats. Gastrointestinal: Poor appetite, abdominal pain, heartburn, nausea, vomiting, constipation, or diarrhea. Genitourinary: Urgency, frequency, dysuria, nocturia. Musculoskeletal: Pain, swelling. Neurologic/Psychiatric: Anxiety, depression. Allergy/Immunologic: Skin rash, bleeding tendency. PHYSICAL EXAMINATION: GENERAL: This is a morbidly obese male, in no apparent distress. VITAL SIGNS: Temperature 97.5, pulse 74, respiratory rate 16, blood pressure 111/73. HEENT: Atraumatic and normocephalic. Oral mucosa is moist. NECK: Supple. CV: S1 and S2. Rate and rhythm regular. RESPIRATORY: Clear. GI: Abdomen is soft. MUSCULOSKELETAL: 1+ edema. DERMATOLOGIC: No skin rash. NEUROLOGIC: Alert and awake. PSYCHIATRIC: Normal mood and affect. LABORATORY DATA: Hemoglobin 11.8. Potassium 5.7, BUN is 14, creatinine is 0.9. ASSESSMENT AND PLAN: 1. Hyperkalemia. We will give Kayexalate. Stop ARB. 2. Hyponatremia, better. 3. Acidosis. We will monitor. 4. Morbid obesity. 5. Anemia. 6. History of hypertension. 7. We will keep on low-potassium diet. We will add Kayexalate, given the constipation and we will hold the ARB as tolerated. Job ID: [id number]
[2020-05-03] MEDS: Amitriptyline HCl 25 MG TAB PO SCH (20:00)
[2020-05-04] MEDS: Vancomycin HCl 1.75 GM in Sodium Chloride 0.9% 500 ML IVPB SCH ×2 (01:38→13:23)
[2020-05-04] MEDS: HYDROcodone/Acetaminophen 5/325 mg Tablet PO PRN ×5 (04:53→22:42)
[2020-05-04] MEDS: Sodium Chloride 0.9% 1,000 ML IV SCH ×2 (04:53→18:33)
[2020-05-04] MEDS: Levothyroxine Sodium 125 MCG TAB PO SCH (04:53)
[2020-05-04] MEDS: Aspirin 81 mg Enteric Coated Tablet PO SCH ×2 (08:18→20:42)
[2020-05-04] MEDS: Acetaminophen/Codeine 30-300mg Tablet PO PRN ×4 (08:18→20:42)
[2020-05-04] MEDS: Metoprolol Tartrate 50 MG TAB PO SCH ×2 (08:19→20:42)
[2020-05-04 10:30] LABS: Anion Gap 12 mmol/L (10-20); BUN (Urea Nitrogen) 12 mg/dL (8.4-25.7); Calc. Creatinine Clearance 170 mL/min (70-130); Calcium 8.3 mg/dL (7.8-10.44); Carbon Dioxide 22 mmol/L (22-29); Chloride 105 mmol/L (98-107); Estimated GFR-MDRD 78; Glucose 120 mg/dL (70-105); Potassium 4.7 mmol/L (3.5-5.1); Sodium 134 mmol/L (136-145)
--- NOTE | 2020-05-04 12:28 | PRG ---
DATE OF SERVICE: 05/04/2020 SUBJECTIVE: Patient was seen and examined at bedside and overnight events noted. Patient denies any shortness of breath or chest pain or palpitation. No history of nausea or vomiting or diarrhea or fever or chills or cramps. OBJECTIVE: GENERAL: This is morbidly obese male, in no apparent distress. VITAL SIGNS: Temperature 98, heart rate 77, respiratory rate 18, and blood pressure 128/92. HEENT: Atraumatic, normocephalic. Oral mucosa is moist. NECK: Supple. CARDIOVASCULAR: S1, S2 heard. Rate and rhythm regular. RESPIRATORY: Clear to auscultation. GASTROINTESTINAL: Abdomen is soft. MUSCULOSKELETAL: No tenderness. No edema. DERMATOLOGIC: No skin rash. NEUROLOGIC: Alert and awake and oriented x3. No focal neurologic deficits. Moving all the extremities. PSYCHIATRIC: Mood and affect normal. LABORATORY DATA: Potassium 4.7, BUN is 12, and creatinine is 1.7. ASSESSMENT AND PLAN: 1. Hyperkalemia, better. 2. Hyponatremia. 3. Morbid obesity. 4. Anemia. 5. Chronic kidney disease. 6. History of hypertension. 7. Potassium level is better. We will monitor. Job ID: [id number]
--- NOTE | 2020-05-04 14:05 | PDOC.HOSPP ---
- Subjective Encounter Date: 05/04/20 Encounter Time: 12:00 Subjective: left middle finger I & D done. sitting in the bed, feels ok, able to flex the fingers little. K still high at 5.7 cw kayexalate until K <5. ordered. repeat K this eveni. - Objective Vital Signs & Weight: Vital Signs (12 hours) Temp Pulse Resp BP Pulse Ox 05/04/20 11:44 97.4 F L 76 16 131/94 H 98 05/04/20 07:39 98 F 77 18 128/92 H 99 05/04/20 04:01 97.5 F L 66 16 142/97 H 98 05/04/20 02:31 97 Weight Weight 318 lb I&O: 05/03/20 05/04/20 05/05/20 06:59 06:59 06:59 Intake Total 1950 1200 Balance 1950 1200 Result Diagrams: 05/01/20 12:53 05/04/20 09:58 Hospitalist ROS - Medication Medications: Active Medications Generic Name Dose Route Start Last Admin Trade Name Freq PRN Reason Stop Dose Admin Acetaminophen/Codeine Phosphate 1 tab 05/01/20 23:44 05/04/20 12:27 Tylenol #3 PO 1 tab Q4H PRN Administration Moderate Pain (4-6) Hydrocodone Bitart/Acetaminophen 1 tab 05/01/20 23:44 05/04/20 10:06 [place] 5/325 PO 1 tab Q4H PRN Administration Moderate Pain (4-6) Amitriptyline HCl 50 mg 05/02/20 21:00 05/03/20 20:00 Elavil PO 50 mg HS MARY Administration Aspirin 81 mg 05/02/20 09:00 05/04/20 08:18 Ecotrin PO 81 mg BID MARY Administration Fentanyl 50 mcg 05/01/20 23:44 05/03/20 04:04 Sublimaze SLOW IVP 50 mcg Q30M PRN Administration Severe breakthrough pain Sodium Chloride 1,000 mls @ 100 mls/hr 05/02/20 08:45 05/04/20 04:53 Normal Saline 0.9% IV 1,000 mls .Q10H MARY Administration Ceftriaxone Sodium 2 gm/ 100 mls @ 200 mls/hr 05/02/20 18:00 05/03/20 17:36 Sodium Chloride IVPB 100 mls Q24HR MARY Administration Vancomycin HCl 1.75 gm/ Sodium 500 mls @ 250 mls/hr 05/03/20 14:00 05/04/20 13:23 Chloride IVPB 500 mls 0200,1400 MARY Administration Isosorbide Mononitrate 60 mg 05/03/20 09:00 05/04/20 08:19 Imdur PO 60 mg DAILY MARY Administration Levothyroxine Sodium 125 mcg 05/03/20 06:00 05/04/20 04:53 Synthroid PO 125 mcg 0600 MARY Administration Losartan Potassium 50 mg 05/02/20 21:00 05/02/20 20:21 Cozaar PO 50 mg BID MARY Administration Meperidine HCl 25 mg 05/01/20 23:48 05/02/20 05:30 Demerol IM 25 mg Q6H PRN Administration .SEVERE PAIN Metoprolol Tartrate 100 mg 05/02/20 21:00 05/04/20 08:19 Lopressor PO 100 mg BID MARY Administration Sertraline HCl 50 mg 05/03/20 09:00 05/04/20 08:18 Zoloft PO 50 mg BID MARY Administration - Exam General Appearance: NAD, awake alert Eye: PERRL ENT: normocephalic atraumatic Neck: supple Heart: RRR Respiratory: CTAB, normal chest expansion Gastrointestinal: soft, normal bowel sounds Extremities - other findings: left middle finger I 7 D, dry gauze in the hand. Psychiatric: normal affect, normal behavior, A&O x 3 Hosp A/P - Plan (1) Hyperkalemia Code(s): E87.5 - HYPERKALEMIA Status: Acute Will hold ARB, continue fluids. nephrology on board. - Possibly due to losartan being added recently to BP regimen. No EKG changes or symptoms. -kayexalate (2) Hypertension Code(s): I10 - ESSENTIAL (PRIMARY) HYPERTENSION Status: Chronic Qualifiers: (3) Atrial fibrillation with controlled ventricular rate Code(s): I48.91 - UNSPECIFIED ATRIAL FIBRILLATION Status: Chronic (4) CKD (chronic kidney disease), stage II Code(s): N18.2 - CHRONIC KIDNEY DISEASE, STAGE 2 (MILD) Status: Chronic (5) Hypothyroidism Code(s): E03.9 - HYPOTHYROIDISM, UNSPECIFIED Status: Chronic (6) Hx of gastric bypass Code(s): Z98.84 - BARIATRIC SURGERY STATUS Status: Chronic (7) Tobacco abuse Code(s): Z72.0 - TOBACCO USE Status: Chronic (8) Morbid obesity Code(s): E66.01 - MORBID (SEVERE) OBESITY DUE TO EXCESS CALORIES Status: Chronic (9) Peptic ulcer disease Code(s): K27.9 - PEPTIC [facility], SITE UNSP, UNSP AC OR CHR, W/O HEMOR OR PERF Status: Chronic periungal abscess tendinities r. hand cellulitis s/p I & d of middle finger - abner sent and no grwoth so far on vanc + ctx -ID following w. us
[2020-05-04 15:45] LABS: Potassium 4.9 mmol/L (3.5-5.1)
[2020-05-04] MEDS: cefTRIAXone\\ROCEPHIN 2 GM in Sodium Chloride 0.9% 100 ML IVPB SCH (17:14)
--- NOTE | 2020-05-04 18:44 | PRG ---
DATE OF SERVICE: 05/04/2020 SUBJECTIVE: Except for finger pain, he does not have any other issues. No respiratory symptoms or abdominal pain or diarrhea. No genitourinary symptoms. OBJECTIVE: VITAL SIGNS: T-max is 98, BP 150/96, pulse 96. GENERAL: He is in no distress. LUNGS: Clear. HEART: S1 and S2, regular rate. ABDOMEN: Soft and not distended. His finger is dressed. LABORATORY DATA: There are no new labs except for chemistry with creatinine 1.0, potassium 4.9. The culture is still nothing growing in the sample submitted. I added fungal cultures. I was trying to add mycobacterial cultures, but there were not enough samples for adding that component. ASSESSMENT AND DISCUSSION: Cardiomyopathy with atrial fibrillation, prior ablation and pacemaker, vascular insufficiency of upper extremities, somewhat cyanotic distal elements, paronychia with puncture and tenosynovitis of left middle finger. So we do not have growth a yet. If nothing grows, then we are going to be left with ? regarding the etiology. In those types of infections, mycobacterial pathogens, Nocardia are sometimes encountered, so you would raise the stakes in terms of failure of treatment for usual pathogens and the worst case scenario could have recrudescence of the inflammatory process on a broad-spectrum coverage that does not include mycobacterial pathogens. The patient is currently receiving ceftriaxone and vancomycin and will probably have to continue this combination or something similar in the outpatient setting. We could also transition him to oral quinolone plus doxycycline and azithromycin. Job ID: [id number]
[2020-05-04] MEDS: Amitriptyline HCl 25 MG TAB PO SCH (20:42)
[2020-05-05] MEDS: Acetaminophen/Codeine 30-300mg Tablet PO PRN ×3 (02:15→12:28)
[2020-05-05] MEDS: Sodium Chloride 0.9% 1,000 ML IV SCH ×2 (02:21→08:17)
[2020-05-05] MEDS: Vancomycin HCl 1.75 GM in Sodium Chloride 0.9% 500 ML IVPB SCH ×2 (02:30→13:51)
[2020-05-05] MEDS: Levothyroxine Sodium 125 MCG TAB PO SCH (04:53)
[2020-05-05] MEDS: HYDROcodone/Acetaminophen 5/325 mg Tablet PO PRN ×3 (04:53→13:34)
[2020-05-05] MEDS: Losartan 25 MG TAB PO SCH (08:16)
[2020-05-05] MEDS: Aspirin 81 mg Enteric Coated Tablet PO SCH (08:16)
[2020-05-05] MEDS: Metoprolol Tartrate 50 MG TAB PO SCH (08:16)
--- NOTE | 2020-05-05 12:32 | PRG ---
DATE OF SERVICE: 05/05/2020 SUBJECTIVE: Patient was seen and examined at bedside and overnight events noted. Patient denies any shortness of breath or chest pain or palpitation. No history of nausea or vomiting or diarrhea or fever or chills or cramps. OBJECTIVE: GENERAL: This is a well-built male, in no apparent distress. VITAL SIGNS: Temperature 97.6. Heart rate 75. Respiratory rate 18. Blood pressure 131/87. HEENT: Atraumatic, normocephalic. Oral mucosa is moist NECK: Supple. CARDIOVASCULAR: S1, S2 heard. Rate and rhythm regular. RESPIRATORY: Clear to auscultation. GASTROINTESTINAL: Abdomen is soft. MUSCULOSKELETAL: No tenderness. No edema. DERMATOLOGIC: No skin rash. NEUROLOGIC: Alert and awake and oriented X3. No focal neurologic deficits. Moving all the extremities. PSYCHIATRIC: Mood and affect normal. LABORATORY DATA: Potassium 4.7, BUN is 12, creatinine is 1.0. ASSESSMENT AND PLAN: 1. Hyperkalemia, better. Monitor. 2. Morbid obesity. 3. Anemia of chronic disease. 4. Chronic kidney disease. 5. History of hypertension. 6. Labs are better. Limit potassium. Job ID: [id number]
[2020-05-05 14:24] LABS: Vancomycin, Trough 28.3 ug/mL
[2020-05-05 15:48] VITALS: BP 156/118; TEMP 98.5
[2020-05-05 16:13] LABS: Fungus Stain Final report (.)
--- NOTE | 2020-05-06 06:55 | DIS ---
DATE OF ADMISSION: 05/01/2020 DATE OF DISCHARGE: 05/05/2020 DISCHARGE MEDICATIONS: Continue with his previous home medications. The new additions are: 1. Doxycycline 100 mg twice a day for 3 weeks. 2. Levaquin 750 mg daily for 3 weeks. CONSULTS: Infectious Disease as well as Surgery, Dr. Kenyon. Also, Nephrology consult with Dr. Mariel Leigh. DISCHARGE DIAGNOSES: 1. Periungual abscess and tenosynovitis on his right middle finger. Right hand cellulitis, status post I and D of middle finger with negative cultures. 2. Peptic ulcer disease. 3. Morbid obesity. 4. Tobacco abuse. 5. History of gastric bypass; hypothyroidism; chronic kidney disease, stage 2; atrial fibrillation with rapid ventricular response; hypertension; and hyperkalemia. PHYSICAL EXAMINATION: On the day of discharge, VITAL SIGNS: Temperature 97.5, pulse 78, oxygen 92% in the room air, blood pressure 131/87. GENERAL: He is doing well. He is able to move his hands. Both Dr. Aguirre as well as Dr. Kenyon had cleared him for discharge. CARDIOVASCULAR: Regular rate and rhythm without murmurs, rubs, or gallops. LUNGS: Clear to auscultation bilaterally without wheezing, rales, or rhonchi. ABDOMEN: Soft, nontender, and nondistended. Good bowel sounds. EXTREMITIES: Without any pitting edema. HOSPITAL COURSE: Rosalie is a 54-year-old male, presented with left third digit infection. He has underlying history of cardiomyopathy and atrial fibrillation , [place] [facility] and noticed some inflammatory changes in the middle finger preceded by some small puncture wound distal to the interphalangeal joint. He had I and D by Dr. Kenyon. Cultures were negative so far. No aerobic or anaerobic growth noted. Infectious Disease followed and recommended Levaquin and doxycycline for 3-week duration. He is stable to be discharged home today. His potassium is normalized, initially at 5.9; on the day of discharge, 4.9. DISCHARGE INSTRUCTIONS: ACTIVITY: As tolerated. DIET: Regular diet. FOLLOWUP: Follow up with primary care physician in 1 week. Follow up with Dr. Kenyon for his clinic appointment within 2 weeks. TIME SPENT: Discharge time took over 35 minutes. Job ID: [id number] [facility]
[2020-05-06] MEDS ORDERED: Vancomycin 1 GM in Premix Bag 1 BAG IVPB SCH (14:00)
== END 2020-05-05 16:15 | disposition home or self-care (01) | DRG 513 ==
LOC: ERS 11:42 → SDC/OP 17:56 → SURG A 18:00 → 3SE 05-03 11:48 → SURG A 05-03 12:09
PROVIDERS: ADMIT Orthopaedic Surgery Hand Surgery; ATTEND Orthopaedic Surgery Hand Surgery
PROC: 0L9700Z Drainage of Right Hand Tendon with Drainage Device, Open Approach (ICD-10-PCS; principal; 2020-05-01)
DX: M65.041 Abscess of tendon sheath, right hand (principal); L02.511 Cutaneous abscess of right hand; Z68.41 Body mass index [BMI] 40.0-44.9, adult; I42.9 Cardiomyopathy, unspecified; I48.20 Chronic atrial fibrillation, unspecified; E87.1 Hypo-osmolality and hyponatremia; E87.2 Acidosis; L03.011 Cellulitis of right finger; E66.01 Morbid (severe) obesity due to excess calories; E03.9 Hypothyroidism, unspecified; N18.2 Chronic kidney disease, stage 2 (mild); I12.9 Hypertensive chronic kidney disease with stage 1 through stage 4 chronic kidney disease, or unspecified chronic kidney disease; E87.5 Hyperkalemia; F17.220 Nicotine dependence, chewing tobacco, uncomplicated; M10.9 Gout, unspecified; N40.0 Benign prostatic hyperplasia without lower urinary tract symptoms; I87.2 Venous insufficiency (chronic) (peripheral); F32.9 Major depressive disorder, single episode, unspecified; F41.9 Anxiety disorder, unspecified; D63.1 Anemia in chronic kidney disease; I51.89 Other ill-defined heart diseases; Z96.652 Presence of left artificial knee joint; M65.141 Other infective (teno)synovitis, right hand; Z98.84 Bariatric surgery status; Z90.49 Acquired absence of other specified parts of digestive tract; Z87.11 Personal history of peptic ulcer disease; Z88.6 Allergy status to analgesic agent; Z88.1 Allergy status to other antibiotic agents; Z79.899 Other long term (current) drug therapy; Z79.890 Hormone replacement therapy; Z79.82 Long term (current) use of aspirin
CPT/HCPCS: 36415; 71045; 80048; 80053; 80202; 83605; 84132; 85025; 85610; 85730; 87040; 87070; 87076; 87102; 87205; 87206; 90471; 90715; 93005; J0696; J1100; J2001; J2175; J2270; J2405; J2704; J3010; J3370; J3490; J7030; S0020; S0028

== ENCOUNTER 2020-07-22 16:57 | Emergency (ER) | payer MEDICARE, OTHER ==
[2020-07-22] MEDS ORDERED: Ketorolac Tromethamine 30 MG/ML VIAL ONE (18:10)
== END 2020-07-22 19:13 | disposition home or self-care (01) ==
LOC: ERS 16:57
DX: S39.012A Strain of muscle, fascia and tendon of lower back, initial encounter (principal); E03.9 Hypothyroidism, unspecified; I10 Essential (primary) hypertension; J45.909 Unspecified asthma, uncomplicated; F32.9 Major depressive disorder, single episode, unspecified; F17.220 Nicotine dependence, chewing tobacco, uncomplicated; Z79.899 Other long term (current) drug therapy; X50.0XXA Overexertion from strenuous movement or load, initial encounter
CPT/HCPCS: 96372; 99283; J1885

== ENCOUNTER 2020-09-14 17:01 | Emergency (ER) | payer MEDICARE ==
[2020-09-14] MEDS ORDERED: Proparacaine 0.5% Opth 15 ML BOT ONE (18:10)
[2020-09-14] MEDS ORDERED: Fluorescein Opthalmic Strip ONE (18:15)
== END 2020-09-14 19:14 | disposition home or self-care (01) ==
LOC: ERS 17:01
DX: T15.12XA Foreign body in conjunctival sac, left eye, initial encounter (principal); I48.91 Unspecified atrial fibrillation; E03.9 Hypothyroidism, unspecified; I10 Essential (primary) hypertension; F17.220 Nicotine dependence, chewing tobacco, uncomplicated; F32.9 Major depressive disorder, single episode, unspecified; Z79.899 Other long term (current) drug therapy; X58.XXXA Exposure to other specified factors, initial encounter
CPT/HCPCS: 65205

== ENCOUNTER 2020-10-21 13:36 | Emergency (ER) | payer MEDICARE ==
--- NOTE | 2020-10-21 14:11 | RAD ---
RIGHT WRIST 3 VIEWS: HISTORY: Right wrist pain, injury FINDINGS: No acute fracture or dislocation is identified. If symptoms do not improve, a follow-up exam should be obtained in 7-10 days.
--- NOTE | 2020-10-21 14:11 | RAD ---
XR Elbow Rt 2 View HISTORY: Injury, right elbow pain FINDINGS: No fracture or dislocation is identified.
--- NOTE | 2020-10-21 14:12 | RAD ---
Right forearm 2 views: HISTORY: Injury, right forearm pain FINDINGS: The right radius and ulna appear intact.
[2020-10-21] MEDS ORDERED: Ketorolac Tromethamine 30 MG/ML VIAL ONE (14:30)
== END 2020-10-21 14:45 | disposition home or self-care (01) ==
LOC: ERS 13:36
DX: S50.11XA Contusion of right forearm, initial encounter (principal); I48.91 Unspecified atrial fibrillation; E03.9 Hypothyroidism, unspecified; I10 Essential (primary) hypertension; F17.220 Nicotine dependence, chewing tobacco, uncomplicated; W01.198A Fall on same level from slipping, tripping and stumbling with subsequent striking against other object, initial encounter; Z79.899 Other long term (current) drug therapy
CPT/HCPCS: 96372; J1885

== ENCOUNTER 2020-11-04 12:29 | Emergency (ER) | payer MEDICARE ==
[2020-11-04] MEDS ORDERED: HYDROcodone/Acetaminophen 10/325 mg Tablet ONE (14:10)
--- NOTE | 2020-11-04 14:19 | RAD ---
Exam:Right elbow 4 views HISTORY: Trauma. Pain. Swelling. COMPARISON: None FINDINGS: Preserved joint spaces. No fractures or malalignment. There does not appear to be a joint e ffusion. Does appear to be soft tissue swelling. IMPRESSION: 1. Soft tissue swelling without radiographic evidence of fracture. If there is still concern, conside r immobilization and follow-up imaging in 7-10 days. Orthopedic consultation may be beneficial.
--- NOTE | 2020-11-04 14:44 | ULT ---
DOPPLER VENOUS ULTRASOUND RIGHT UPPER EXTREMITY INDICATION: Fall with right arm pain TECHNIQUE: Grayscale, color Doppler spectral Doppler images were obtained of the right internal jugul ar vein, right subclavian vein, right axillary vein, right brachial vein, right basilic vein, right ulnar vein and right radial vein. FINDINGS: There is normal compression, flow and augmentation seen within the venous structures of the right upper extremity. IMPRESSION: No evidence of venous thrombosis within the right upper extremity.
== END 2020-11-04 16:00 | disposition home or self-care (01) ==
LOC: ERS 12:29
DX: S40.021A Contusion of right upper arm, initial encounter (principal); I48.91 Unspecified atrial fibrillation; E03.9 Hypothyroidism, unspecified; I10 Essential (primary) hypertension; J45.909 Unspecified asthma, uncomplicated; F17.220 Nicotine dependence, chewing tobacco, uncomplicated; Z79.899 Other long term (current) drug therapy; W19.XXXA Unspecified fall, initial encounter
CPT/HCPCS: 29105

== ENCOUNTER 2020-11-23 02:00 | Outpatient (CLI) | payer MEDICARE ==
[2020-11-24 14:57] LABS: #Basophils 0.1 10x3/uL (0.0-0.2); #Eosinphils 0.3 10x3/uL (0.0-0.5); #Monocytes 0.8 10x3/uL (0.0-1.1); #Neutrophils 6.4 10x3/uL (1.5-8.4); %Basophils 1.4 % (0.0-2.0); %Eosinophils 2.6 % (0.0-6.0); %Monocytes 8.8 % (0.0-10.0); %Neutrophils 67.6 % (40.0-75.0); Hemoglobin 14.5 g/dL (14.0-18.0); Mean Corpuscular Hemoglobin 31.6 PG (27.0-33.0); Mean Corpuscular Volume 95.6 fl (80.0-100.0); Mean Platelet Volume 9.3 fl (7.4-10.4); Platelet Count 363 10x3/uL (130-400); RBC Distribution Width 12.8 % (11.5-14.5); Red Blood Cell (RBC) Count 4.59 10x6/uL (4.40-5.80); White Blood Cell (WBC) Count 9.5 10x3/uL (4.5-11.0)
[2020-11-24 15:17] LABS: ALT (SGPT) 19 U/L (8-55); AST (SGOT) 30 U/L (5-34); Albumin 4.3 g/dL (3.5-5.0); Alkaline Phosphatase 74 U/L (40-110); Anion Gap 15 mmol/L (10-20); BUN (Urea Nitrogen) 15 mg/dL (8.4-25.7); Bilirubin, Total 0.9 mg/dL (0.2-1.2); Calc. Creatinine Clearance 0 mL/min (70-130); Calcium 9.2 mg/dL (7.8-10.44); Carbon Dioxide 26 mmol/L (22-29); Chloride 91 mmol/L (98-107); Globulin 2.6 g/dL (2.4-3.5); Glucose 97 mg/dL (70-105); Potassium 5.2 mmol/L (3.5-5.1); Protein, Total 6.9 g/dL (6.0-8.3); Sodium 127 mmol/L (136-145)
[2020-11-25 03:41] LABS: SARS-CoV-2 PCR by NAA Not Detected (NotDetected)
== END 2020-12-11 14:01 | disposition home or self-care (01) ==
LOC: BICMRI 02:00
PROVIDERS: ATTEND Orthopaedic Surgery
DX: Z01.818 Encounter for other preprocedural examination (principal); Z20.822 Contact with and (suspected) exposure to COVID-19; S46.219A Strain of muscle, fascia and tendon of other parts of biceps, unspecified arm, initial encounter
CPT/HCPCS: 80053; 85025; 93005; U0003; U0005; 87635; 93010

== ENCOUNTER 2020-11-28 05:56 | Day surgery (SDC) | payer MEDICARE ==
[2020-11-27 08:52] VITALS: BMI 42.2
[2020-11-28] MEDS ORDERED: Lidocaine 1% (PF) 30 ML VIAL ONE (07:11)
[2020-11-28] MEDS ORDERED: Fentanyl 100 MCG/2 ML VIAL ONE ×3 (07:40→10:06)
[2020-11-28] MEDS ORDERED: Midazolam HCl 2 mg/2 ml Vial ONE (07:40)
[2020-11-28] MEDS ORDERED: Ropivacaine 0.2% HCl/PF (40 MG/20 ML VIAL) ONE (07:50)
[2020-11-28] MEDS ORDERED: Ropivacaine 0.5% HCl/PF (150 MG/30 ML VIAL) ONE (07:50)
[2020-11-28] MEDS ORDERED: Famotidine/PF 20 mg/2ml Vial ONE (08:02)
[2020-11-28] MEDS ORDERED: SUGAMMADEX SODIUM 500 MG/5 ML VIAL ONE (08:02)
[2020-11-28] MEDS ORDERED: Metoclopramide HCl 10 MG/2 ML VIAL ONE (08:39)
[2020-11-28] MEDS ORDERED: Ketorolac Tromethamine 30 MG/ML VIAL ONE (08:39)
[2020-11-28] MEDS ORDERED: PHENYLEPHRINE-NS 100 MCG/ML 10 ML SYRINGE ONE (08:39)
[2020-11-28] MEDS ORDERED: PROPOFOL 200 MG/20 ML VIAL ONE (08:39)
[2020-11-28] MEDS ORDERED: Ondansetron PF 4 MG/2 ML Vial ONE (08:39)
[2020-11-28] MEDS ORDERED: Rocuronium Bromide 10 MG/ML (10ML VIAL) ONE (08:39)
[2020-11-28] MEDS ORDERED: Lidocaine 1% PF 5 ML VIAL ONE (08:39)
[2020-11-28] MEDS ORDERED: Bupivacaine 0.25% HCL 30 ML VIAL ONE (09:49)
[2020-11-28] MEDS ORDERED: Fentanyl 100 MCG/2 ML VIAL IV PRN (10:05)
[2020-11-28] MEDS ORDERED: Ropivacaine 0.2% 550 ML 550 ML NERVE BLCK SCH (10:15)
[2020-11-28] MEDS ORDERED: Zolpidem Tartrate 5 MG TAB PO PRN (10:15)
[2020-11-28] MEDS ORDERED: HYDROcodone/Acetaminophen 10/325 mg Tablet PO PRN ×2 (10:15)
[2020-11-28] MEDS ORDERED: Ondansetron PF 4 MG/2 ML Vial IVP PRN (10:15)
[2020-11-28] MEDS ORDERED: Promethazine HCl 25 MG/ML VIAL IM PRN (10:15)
[2020-11-28] MEDS ORDERED: traMADol HCl 50 MG TAB PO PRN ×2 (10:15)
--- NOTE | 2020-11-29 06:42 | OP ---
DATE OF PROCEDURE: 11/28/2020 PREOPERATIVE DIAGNOSIS: Right distal biceps tendon rupture. POSTOPERATIVE DIAGNOSIS: Right distal biceps tendon rupture. PROCEDURE PERFORMED: Right distal biceps repair. SPRAY PAINTER HELPER: Yung Morton PA-C. ANESTHESIA: Daphnie. The patient received general with supraclavicular block. ESTIMATED BLOOD LOSS: Less than 20 mL TOURNIQUET TIME: 51 minutes at 250 mmHg. ANTIBIOTICS: Ancef 2 g. IMPLANTS: A right distal biceps repair kit interference screw with the TightRope and FiberLoop. COMPLICATIONS: None. HISTORY OF PRESENT ILLNESS: Mr. Wiggins is a 55-year-old male, presents after a ruptured distal biceps from a fall with water bottles, having a right distal biceps rupture. I discussed the risks and benefits of right distal biceps repair to include pain, scar, bleeding, infection, damage to vital structures, nerves, arteries, tendon, paresthesias, continued pain despite surgical intervention, need for further surgeries, failure of repair, damage to vital structures, loss of life or limb. He understood the risks and benefits of procedure and elected to proceed. DESCRIPTION OF PROCEDURE: Time-out was performed designating the patient's right upper extremity as the operative site based on site, consents, markings. After time-out was performed, the patient's right upper extremity was prepped and draped in a sterile fashion. I made an incision in between the patient's muscle bellies of the brachioradialis and the pronator down through skin, came down onto the cephalic and to the cubital fossa, found the confluence of the veins in cubital fossa. We dissected and retracted those, came down. We moved proximally, came to the bicepital aponeurosis and fell into and found the patient's biceps, which was retracted. We cleaned off the distal end to help with the fit through what was about the 7 mm hole. We passed the FiberLoop in a running locking stitches through 6 passes and out the end to help with circularize the distal extent of the tendon. We then moved distally. I dissected down bluntly between the two muscle planes, down on the patient's biceps tuberosity. We then used our fingers to digitally palpate through remnant of the sleeve and then find where the biceps progressed to insert on the tuberosity. We then placed a Hohmann ulnarly and an Army-Lamkin laterally to retract and expose the tuberosity, which we cleaned off, placed our guide pin under fluoroscopic guidance in hypersupination, drilled a bicortical guide pin and used unicortical with our 7 mm screw passed. We then passed the tendon through our recreated tunnel. We washed out the bone. We passed the TightRope through cortex and pulled it in. The patient was really difficult and felt that the suture pass would be challenging at that angle with elbow flexed at almost 70-80 degrees. Therefore, we passed the sutures through the interference screw, center of the interference screw to help with our fixation. We pulled taut and passed our interference screw into place, extended about 40 degrees more until we had right at the tension point of the biceps. We passed the sutures back through the tendon in the proximal aspect of the tendon with half-hitches 5 total, tied down the knot. We cut this FiberWire. The patient had a nice arc of motion and insertion . We washed. We ensured the patient had no other signs of bleeding, which we washed controlled. The patient moved about 45 degrees to 50 degrees of extension where he became tight which will be his beginning limit for this next 2 weeks until we start progressing his range of motion. The patient was washed and closed with 2-0 subcu and nylon. The patient had a soft tissue dressing applied. The tourniquet was let down after 51 minutes. The patient had a bulky dressing applied and was placed into a sling. The patient will follow up in 2 weeks, will be discharged home with pain medications. During the procedure, intraop, he was noted to have a little bit of a pale left index finger, which warmed up and had good brisk refill and good flow after he was warmed up, which may be secondary to Raynaud's. The patient will be started on a baby aspirin and will be discharged home. Job ID: [id number] [facility]
== END 2020-11-28 12:00 | disposition home or self-care (01) ==
LOC: SDC 05:56
PROVIDERS: ATTEND Orthopaedic Surgery
PROC: 0LM30ZZ Reattachment of Right Upper Arm Tendon, Open Approach (ICD-10-PCS; principal; 2020-11-28)
DX: S46.211A Strain of muscle, fascia and tendon of other parts of biceps, right arm, initial encounter (principal); M10.9 Gout, unspecified; G62.9 Polyneuropathy, unspecified; I87.2 Venous insufficiency (chronic) (peripheral); J45.909 Unspecified asthma, uncomplicated; E03.9 Hypothyroidism, unspecified; F32.9 Major depressive disorder, single episode, unspecified; N40.0 Benign prostatic hyperplasia without lower urinary tract symptoms; M06.9 Rheumatoid arthritis, unspecified; F17.290 Nicotine dependence, other tobacco product, uncomplicated; Z79.899 Other long term (current) drug therapy; Z88.0 Allergy status to penicillin; Z88.1 Allergy status to other antibiotic agents; Z88.8 Allergy status to other drugs, medicaments and biological substances; Z96.652 Presence of left artificial knee joint; Z98.84 Bariatric surgery status; W19.XXXA Unspecified fall, initial encounter
CPT/HCPCS: 24342; 76000; A4306; C1713; J0690; J1885; J2001; J2250; J2405; J2704; J2765; J2795; J3010; S0020; S0028

== ENCOUNTER 2021-01-04 12:58 | Outpatient (CLI) | payer MEDICARE ==
--- NOTE | 2021-01-04 13:52 | ULT ---
EXAM: Right lower extremity venous Doppler US HISTORY: Right lower extremity edema and pain FINDINGS: Grayscale, color-flow, Doppler evaluation, spectral analysis of the right lower extremity venous stru ctures is performed with 2-D imaging. The right common femoral, superficial femoral, popliteal, posterior tibial, proximal greater saphenous and profunda femoral veins are imaged. There is normal luminal compressibility, flow, and augmentation the visualized deep venous structures of the right lower extremity. IMPRESSION: No evidence of a deep vein thrombosis in the right lower extremity.
== END 2021-01-04 12:59 | disposition home or self-care (01) ==
LOC: ULT 12:58
PROVIDERS: ATTEND Physician Assistant Medical
DX: R60.0 Localized edema (principal)

== ENCOUNTER 2021-01-20 19:39 | Emergency (ER) | payer MEDICARE ==
[2021-01-20 20:12] LABS: #Basophils 0.1 thou/uL (0.0-0.2); #Eosinphils 0.2 thou/uL (0.0-0.7); #Lymphocytes 1.6 thou/uL (1.20-3.40); #Neutrophils 5.2 thou/uL (1.40-6.50); %Basophils 0.7 % (0.0-1.0); %Eosinophils 2.1 % (0.0-10.0); %Lymphocytes 19.9 % (21.0-51.0); %Monocytes 12.1 % (0.0-10.0); %Neutrophils 65.1 % (42.0-75.0); Hemoglobin 12.7 g/dL (14.0-18.0); Mean Corpuscular HGB CONC 33.1 g/dL (32.0-36.0); Mean Corpuscular Hemoglobin 32.3 pg (27.0-31.0); Mean Corpuscular Volume 97.3 fL (78.0-98.0); Mean Platelet Volume 6.9 fL (7.4-10.4); Platelet Count 253 thou/uL (130-400); RBC Distribution Width 12.5 % (11.5-14.5); Red Blood Cell (RBC) Count 3.92 mill/uL (4.70-6.10)
[2021-01-20 20:26] LABS: Digoxin Less than 0.15 ng/mL (0.8-2.0)
[2021-01-20] MEDS ORDERED: Nitroglycerin 2% Ointment 1 INCH/1 GM Packet ONE (20:26)
[2021-01-20 20:27] LABS: ALT (SGPT) 15 U/L (8-55); AST (SGOT) 25 U/L (5-34); Albumin 3.9 g/dL (3.5-5.0); Alkaline Phosphatase 57 U/L (40-110); Anion Gap 15 mmol/L (10-20); BUN (Urea Nitrogen) 18 mg/dL (8.4-25.7); Bilirubin, Total 0.8 mg/dL (0.2-1.2); Calc. Creatinine Clearance 0 mL/min (70-130); Calcium 8.6 mg/dL (7.8-10.44); Carbon Dioxide 23 mmol/L (22-29); Chloride 103 mmol/L (98-107); Globulin 2.9 g/dL (2.4-3.5); Glucose 86 mg/dL (70-105); Potassium 4.5 mmol/L (3.5-5.1); Protein, Total 6.8 g/dL (6.0-8.3); Sodium 136 mmol/L (136-145)
== END 2021-01-20 23:40 | disposition short-term general hospital (02) ==
LOC: ERS 19:39
DX: R07.9 Chest pain, unspecified (principal); I48.91 Unspecified atrial fibrillation; I10 Essential (primary) hypertension; F17.220 Nicotine dependence, chewing tobacco, uncomplicated; E03.9 Hypothyroidism, unspecified; Z79.899 Other long term (current) drug therapy
CPT/HCPCS: 36415; 71045; 80053; 80162; 84484; 85025; 93005

== ENCOUNTER 2021-07-27 09:19 | Emergency (ER) | payer MEDICARE ==
[2021-07-27 09:55] LABS: #Basophils 0.1 thou/uL (0.0-0.2); #Eosinphils 0.2 thou/uL (0.0-0.7); #Lymphocytes 1.5 thou/uL (1.20-3.40); #Neutrophils 4.6 thou/uL (1.40-6.50); %Basophils 1.6 % (0.0-1.0); %Eosinophils 2.8 % (0.0-10.0); %Lymphocytes 20.4 % (21.0-51.0); %Monocytes 13.7 % (0.0-10.0); %Neutrophils 61.6 % (42.0-75.0); Mean Corpuscular HGB CONC 32.3 g/dL (32.0-36.0); Mean Corpuscular Hemoglobin 30.6 pg (27.0-31.0); Mean Platelet Volume 6.8 fL (7.4-10.4); Platelet Count 303 thou/uL (130-400); RBC Distribution Width 15.1 % (11.5-14.5); Red Blood Cell (RBC) Count 3.91 mill/uL (4.70-6.10); White Blood Cell (WBC) Count 7.4 thou/uL (4.8-10.8)
[2021-07-27 10:17] LABS: ALT (SGPT) 11 U/L (8-55); AST (SGOT) 21 U/L (5-34); Albumin 3.6 g/dL (3.5-5.0); Alkaline Phosphatase 59 U/L (40-110); Anion Gap 13 mmol/L (10-20); BUN (Urea Nitrogen) 13 mg/dL (8.4-25.7); Bilirubin, Total 1.5 mg/dL (0.2-1.2); Calc. Creatinine Clearance 0 mL/min (70-130); Calcium 8.8 mg/dL (7.8-10.44); Carbon Dioxide 24 mmol/L (22-29); Chloride 95 mmol/L (98-107); Globulin 2.5 g/dL (2.4-3.5); Glucose 85 mg/dL (70-105); Potassium 5.3 mmol/L (3.5-5.1); Protein, Total 6.1 g/dL (6.0-8.3); Sodium 127 mmol/L (136-145)
[2021-07-27 11:16] LABS: Bilirubin Negative (Negative); Blood, Urine Negative (Negative); Clarity Clear (Clear); Glucose, Urine (Dipstick) Normal (Negative); Ketone, Urine Negative (Negative); Leukocyte Negative Leu/uL (Negative); Nitrite Negative (Negative); Protein, Urine (Dipstick) Negative (Neg-Trace); Specific Gravity, Urine 1.004 (1.002-1.036); Urobilinogen Normal mg/dL (Less than 2); pH, Urine 7.5 (5.0-9.0)
[2021-07-27] MEDS ORDERED: Ondansetron PF 4 MG/2 ML Vial ONE (12:52)
== END 2021-07-28 10:47 | disposition short-term general hospital (02) ==
LOC: ERS 09:19
DX: E87.1 Hypo-osmolality and hyponatremia (principal); E87.5 Hyperkalemia; I48.91 Unspecified atrial fibrillation; I49.9 Cardiac arrhythmia, unspecified; E03.9 Hypothyroidism, unspecified; I10 Essential (primary) hypertension; J45.909 Unspecified asthma, uncomplicated; F17.290 Nicotine dependence, other tobacco product, uncomplicated
CPT/HCPCS: 36415; 71045; 80053; 81003; 85025; 93005; J2405

== ENCOUNTER 2021-09-14 12:33 | Inpatient (IN) | payer MEDICARE ==
[2021-09-14] MEDS ORDERED: Pantoprazole 40 MG VIAL ONE (13:28)
[2021-09-14 13:30] LABS: #Basophils 0.1 thou/uL (0.0-0.2); #Eosinphils 0.1 thou/uL (0.0-0.7); #Lymphocytes 2.5 thou/uL (1.20-3.40); #Monocytes 0.7 thou/uL (0.11-0.59); #Neutrophils 5.9 thou/uL (1.40-6.50); %Basophils 1.6 % (0.0-1.0); %Eosinophils 1.3 % (0.0-10.0); %Lymphocytes 26.3 % (21.0-51.0); %Monocytes 7.7 % (0.0-10.0); %Neutrophils 63.2 % (42.0-75.0); Hemoglobin 10.9 g/dL (14.0-18.0); Mean Corpuscular HGB CONC 33.4 g/dL (32.0-36.0); Mean Corpuscular Hemoglobin 32.5 pg (27.0-31.0); Mean Corpuscular Volume 97.2 fL (78.0-98.0); Mean Platelet Volume 6.8 fL (7.4-10.4); Platelet Count 385 thou/uL (130-400); RBC Distribution Width 14.6 % (11.5-14.5); Red Blood Cell (RBC) Count 3.35 mill/uL (4.70-6.10); White Blood Cell (WBC) Count 9.3 thou/uL (4.8-10.8)
[2021-09-14 13:41] LABS: INR-International Normal Ratio 1.1; PTT 28.4 sec (22.9-36.1); Prothrombin Time 14.5 sec (12.0-14.7)
[2021-09-14 13:47] LABS: ALT (SGPT) 13 U/L (8-55); AST (SGOT) 28 U/L (5-34); Albumin 3.9 g/dL (3.5-5.0); Alkaline Phosphatase 64 U/L (40-110); Anion Gap 15 mmol/L (10-20); BUN (Urea Nitrogen) 24 mg/dL (8.4-25.7); Calc. Creatinine Clearance 0 mL/min (70-130); Carbon Dioxide 20 mmol/L (22-29); Chloride 101 mmol/L (98-107); Globulin 2.9 g/dL (2.4-3.5); Glucose 98 mg/dL (70-105); Lipase 33 U/L (8-78); Potassium 5.6 mmol/L (3.5-5.1); Protein, Total 6.8 g/dL (6.0-8.3); Sodium 130 mmol/L (136-145)
[2021-09-14 17:24] LABS: ALT (SGPT) 10 U/L (8-55); AST (SGOT) 17 U/L (5-34); Albumin 3.4 g/dL (3.5-5.0); Alkaline Phosphatase 56 U/L (40-110); Anion Gap 13 mmol/L (10-20); BUN (Urea Nitrogen) 23 mg/dL (8.4-25.7); Bilirubin, Total 0.9 mg/dL (0.2-1.2); Calc. Creatinine Clearance 0 mL/min (70-130); Calcium 8.5 mg/dL (7.8-10.44); Carbon Dioxide 21 mmol/L (22-29); Chloride 102 mmol/L (98-107); Globulin 2.3 g/dL (2.4-3.5); Glucose 84 mg/dL (70-105); Potassium 5.1 mmol/L (3.5-5.1); Protein, Total 5.7 g/dL (6.0-8.3); Sodium 131 mmol/L (136-145)
[2021-09-14] MEDS ORDERED: Ondansetron PF 4 MG/2 ML Vial IVP PRN (17:27)
[2021-09-14] MEDS ORDERED: Acetaminophen 650 MG Suppository PR PRN (17:27)
[2021-09-14] MEDS ORDERED: Acetaminophen 325 MG TAB PO PRN (17:27)
[2021-09-14] MEDS ORDERED: Pantoprazole 80 MG in Sodium Chloride 0.9% 100 ML IVPB SCH (17:30)
[2021-09-14] MEDS ORDERED: Lorazepam 1 MG TAB PO PRN (17:33)
[2021-09-14] MEDS ORDERED: Lorazepam 2 MG/ML VIAL IM PRN (17:33)
[2021-09-14] MEDS ORDERED: hydrALAZINE 20 MG/ML VIAL SLOW IVP PRN (17:43)
[2021-09-14 17:48] VITALS: BMI 38.0
[2021-09-14] MEDS ORDERED: FLU VACC QS2021-22(6MOS UP)/PF 60 MCG/0.5 ML SYRINGE IM ONE (19:00)
[2021-09-14 19:35] LABS: Phosphorus 3.3 mg/dL (2.3-4.7)
[2021-09-14] MEDS: Metoprolol Tartrate 100 MG TAB PO SCH (20:46)
[2021-09-14] MEDS: Multivitamins, Adult 10 ML, Folic Acid 1 MG, Thiamine HCl 100 MG in Dextrose 5 %-0.45 %... IV SCH (20:47)
[2021-09-14] MEDS: Pantoprazole 40 MG VIAL IVP SCH (20:47)
[2021-09-14] MEDS ORDERED: Acetaminophen/Codeine 30-300mg Tablet PO SCH (20:55)
[2021-09-14 21:38] LABS: #Basophils 0.1 thou/uL (0.0-0.2); #Eosinphils 0.1 thou/uL (0.0-0.7); #Lymphocytes 3.1 thou/uL (1.20-3.40); #Monocytes 0.8 thou/uL (0.11-0.59); #Neutrophils 5.9 thou/uL (1.40-6.50); %Basophils 1.5 % (0.0-1.0); %Eosinophils 1.1 % (0.0-10.0); %Lymphocytes 30.7 % (21.0-51.0); %Monocytes 7.8 % (0.0-10.0); %Neutrophils 58.9 % (42.0-75.0); Hemoglobin 9.7 g/dL (14.0-18.0); Mean Corpuscular HGB CONC 33.2 g/dL (32.0-36.0); Mean Corpuscular Hemoglobin 32.1 pg (27.0-31.0); Mean Corpuscular Volume 96.6 fL (78.0-98.0); Mean Platelet Volume 6.9 fL (7.4-10.4); Platelet Count 356 thou/uL (130-400); RBC Distribution Width 14.4 % (11.5-14.5); Red Blood Cell (RBC) Count 3.02 mill/uL (4.70-6.10)
[2021-09-14 23:12] LABS: #Basophils 0.1 thou/uL (0.0-0.2); #Eosinphils 0.2 thou/uL (0.0-0.7); #Lymphocytes 3.1 thou/uL (1.20-3.40); %Basophils 1.1 % (0.0-1.0); %Eosinophils 1.6 % (0.0-10.0); %Lymphocytes 29.8 % (21.0-51.0); %Monocytes 9.7 % (0.0-10.0); %Neutrophils 57.9 % (42.0-75.0); Hemoglobin 8.7 g/dL (14.0-18.0); Mean Corpuscular HGB CONC 34.4 g/dL (32.0-36.0); Mean Corpuscular Hemoglobin 32.9 pg (27.0-31.0); Mean Corpuscular Volume 95.6 fL (78.0-98.0); Platelet Count 291 thou/uL (130-400); RBC Distribution Width 14.2 % (11.5-14.5); Red Blood Cell (RBC) Count 2.66 mill/uL (4.70-6.10); White Blood Cell (WBC) Count 10.3 thou/uL (4.8-10.8)
[2021-09-15 01:20] LABS: SARS-CoV-2 NAA Rapid Test Not Detected (NotDetected)
[2021-09-15 01:28] LABS: #Basophils 0.1 thou/uL (0.0-0.2); #Eosinphils 0.2 thou/uL (0.0-0.7); #Lymphocytes 3.7 thou/uL (1.20-3.40); #Monocytes 0.9 thou/uL (0.11-0.59); #Neutrophils 6.5 thou/uL (1.40-6.50); %Eosinophils 1.5 % (0.0-10.0); %Lymphocytes 32.6 % (21.0-51.0); %Monocytes 7.8 % (0.0-10.0); %Neutrophils 57.2 % (42.0-75.0); Hemoglobin 9.2 g/dL (14.0-18.0); Mean Corpuscular HGB CONC 33.6 g/dL (32.0-36.0); Mean Corpuscular Hemoglobin 32.1 pg (27.0-31.0); Mean Corpuscular Volume 95.6 fL (78.0-98.0); Mean Platelet Volume 6.7 fL (7.4-10.4); Platelet Count 349 thou/uL (130-400); RBC Distribution Width 14.3 % (11.5-14.5); Red Blood Cell (RBC) Count 2.86 mill/uL (4.70-6.10); White Blood Cell (WBC) Count 11.4 thou/uL (4.8-10.8)
[2021-09-15 02:11] LABS: Anion Gap 12 mmol/L (10-20); BUN (Urea Nitrogen) 24 mg/dL (8.4-25.7); Calc. Creatinine Clearance 127 mL/min (70-130); Calcium 8.6 mg/dL (7.8-10.44); Carbon Dioxide 22 mmol/L (22-29); Chloride 102 mmol/L (98-107); Glucose 102 mg/dL (70-105); Potassium 4.7 mmol/L (3.5-5.1); Sodium 131 mmol/L (136-145)
[2021-09-15 05:37] LABS: #Basophils 0.1 thou/uL (0.0-0.2); #Eosinphils 0.2 thou/uL (0.0-0.7); #Lymphocytes 2.9 thou/uL (1.20-3.40); #Monocytes 0.7 thou/uL (0.11-0.59); #Neutrophils 5.5 thou/uL (1.40-6.50); %Basophils 1.4 % (0.0-1.0); %Lymphocytes 30.9 % (21.0-51.0); %Monocytes 7.7 % (0.0-10.0); Hemoglobin 9.1 g/dL (14.0-18.0); Mean Corpuscular HGB CONC 33.8 g/dL (32.0-36.0); Mean Corpuscular Hemoglobin 32.5 pg (27.0-31.0); Mean Corpuscular Volume 96.3 fL (78.0-98.0); Mean Platelet Volume 7.2 fL (7.4-10.4); Platelet Count 346 thou/uL (130-400); RBC Distribution Width 14.5 % (11.5-14.5); Red Blood Cell (RBC) Count 2.79 mill/uL (4.70-6.10); White Blood Cell (WBC) Count 9.4 thou/uL (4.8-10.8)
[2021-09-15] MEDS ORDERED: EPINEPHrine 1 MG/10 ML Abboject SYRINGE ONE (10:17)
[2021-09-15] MEDS ORDERED: Lidocaine 1% PF 5 ML VIAL ONE (10:17)
[2021-09-15] MEDS ORDERED: PROPOFOL 200 MG/20 ML VIAL ONE (10:17)
[2021-09-15] MEDS: Metoprolol Tartrate 100 MG TAB PO SCH ×2 (10:41→20:32)
[2021-09-15] MEDS ORDERED: Promethazine HCl 25 MG/ML VIAL IM PRN (10:57)
[2021-09-15] MEDS ORDERED: Promethazine HCl 25 MG/ML VIAL IVPB PRN (10:57)
[2021-09-15] MEDS ORDERED: Ondansetron HCl/PF 4 MG/2 ML Vial IVP PRN (10:57)
[2021-09-15] MEDS ORDERED: Fentanyl 100 MCG/2 ML VIAL ONE (11:02)
[2021-09-15] MEDS ORDERED: Ondansetron PF 4 MG/2 ML Vial ONE (11:03)
[2021-09-15] MEDS ORDERED: Labetalol HCl 100 MG/20 ML VIAL ONE (11:04)
[2021-09-15] MEDS: Pantoprazole 40 MG VIAL IVP SCH ×2 (11:57→20:32)
[2021-09-15] MEDS ORDERED: Sucralfate 1 GM/10 ML UDCUP PO SCH (16:45)
[2021-09-15 17:02] LABS: Hemoglobin 9.6 g/dL (14.0-18.0)
[2021-09-15] MEDS ORDERED: Lorazepam 1 MG TAB PO PRN (17:33)
[2021-09-15] MEDS: Sucralfate 1 GM/10 ML UDCUP PO SCH ×2 (18:20→23:51)
[2021-09-15] MEDS: Losartan 25 MG TAB PO SCH (20:32)
[2021-09-15] MEDS: Multivitamins, Adult 10 ML, Folic Acid 1 MG, Thiamine HCl 100 MG in Dextrose 5 %-0.45 %... IV SCH (20:33)
[2021-09-16 04:51] LABS: Hemoglobin 8.6 g/dL (14.0-18.0)
[2021-09-16] MEDS: Levothyroxine Sodium 125 MCG TAB PO SCH (05:21)
[2021-09-16] MEDS: Losartan 25 MG TAB PO SCH ×2 (08:15→22:47)
[2021-09-16] MEDS: Metoprolol Tartrate 100 MG TAB PO SCH ×2 (08:16→22:47)
[2021-09-16] MEDS: Sucralfate 1 GM/10 ML UDCUP PO SCH ×4 (08:16→22:48)
[2021-09-16] MEDS: Amlodipine 5 MG TAB PO SCH (08:17)
[2021-09-16] MEDS: Pantoprazole 40 MG VIAL IVP SCH ×2 (10:59→22:45)
[2021-09-16 15:20] LABS: Hemoglobin 8.8 g/dL (14.0-18.0)
[2021-09-16] MEDS ORDERED: Lorazepam 1 MG TAB PO PRN (17:33)
[2021-09-16] MEDS: Multivitamins, Adult 10 ML, Folic Acid 1 MG, Thiamine HCl 100 MG in Dextrose 5 %-0.45 %... IV SCH (22:47)
[2021-09-17 05:22] LABS: Hemoglobin 7.7 g/dL (14.0-18.0)
[2021-09-17] MEDS: Levothyroxine Sodium 125 MCG TAB PO SCH (05:55)
[2021-09-17] MEDS: Losartan 25 MG TAB PO SCH (09:36)
[2021-09-17] MEDS: Metoprolol Tartrate 100 MG TAB PO SCH (09:36)
[2021-09-17] MEDS: Amlodipine 5 MG TAB PO SCH (09:36)
[2021-09-17] MEDS: Sucralfate 1 GM/10 ML UDCUP PO SCH ×2 (09:37→12:12)
[2021-09-17] MEDS: Pantoprazole 40 MG VIAL IVP SCH (12:12)
[2021-09-17 12:15] VITALS: BP 111/78; TEMP 97.6
[2021-09-17] MEDS ORDERED: Lorazepam 0.5 MG TAB PO PRN (17:33)
== END 2021-09-17 13:00 | disposition home or self-care (01) | DRG 378 ==
LOC: ERS 12:33 → 2NO 16:21
PROVIDERS: ADMIT Family Medicine; ATTEND Internal Medicine
PROC: 0W3P8ZZ Control Bleeding in Gastrointestinal Tract, Via Natural or Artificial Opening Endoscopic (ICD-10-PCS; principal; 2021-09-15)
PROC: 30233N1 Transfusion of Nonautologous Red Blood Cells into Peripheral Vein, Percutaneous Approach (ICD-10-PCS; 2021-09-17)
DX: K28.4 Chronic or unspecified gastrojejunal ulcer with hemorrhage (principal); E87.1 Hypo-osmolality and hyponatremia; D62 Acute posthemorrhagic anemia; Z20.822 Contact with and (suspected) exposure to COVID-19; Z28.21 Immunization not carried out because of patient refusal; I48.91 Unspecified atrial fibrillation; E03.9 Hypothyroidism, unspecified; F32.A Depression, unspecified; F41.9 Anxiety disorder, unspecified; F17.220 Nicotine dependence, chewing tobacco, uncomplicated; I73.9 Peripheral vascular disease, unspecified; K44.9 Diaphragmatic hernia without obstruction or gangrene; Z88.1 Allergy status to other antibiotic agents; Z88.8 Allergy status to other drugs, medicaments and biological substances; Z79.899 Other long term (current) drug therapy; Z79.02 Long term (current) use of antithrombotics/antiplatelets; Z79.890 Hormone replacement therapy; Z90.49 Acquired absence of other specified parts of digestive tract; Z82.49 Family history of ischemic heart disease and other diseases of the circulatory system; Z98.84 Bariatric surgery status
CPT/HCPCS: 36415; 36430; 80048; 80053; 83605; 83690; 83880; 84100; 84484; 85014; 85018; 85025; 85610; 85730; 86850; 86900; 86901; 93005; 96374; C9113; J0171; J2405; J2704; J3010; J3411; J7042; P9016; U0002

== ENCOUNTER 2022-02-15 11:59 | Outpatient (CLI) | payer MEDICARE ==
[2022-02-15 13:05] LABS: #Basophils 0.1 10x3/uL (0.0-0.2); #Eosinphils 0.4 10x3/uL (0.0-0.5); #Monocytes 0.7 10x3/uL (0.0-1.1); #Neutrophils 5.1 10x3/uL (1.5-8.4); %Basophils 1.5 % (0.0-2.0); %Eosinophils 4.6 % (0.0-6.0); %Lymphocytes 20.3 % (18.0-47.0); %Neutrophils 64.1 % (40.0-75.0); Hemoglobin 14.2 g/dL (13.5-17.5); Mean Corpuscular Hemoglobin 32.9 pg (27.0-33.0); Mean Platelet Volume 8.9 fl (7.4-10.4); Platelet Count 324 10x3/uL (150-450); RBC Distribution Width 14.9 % (11.5-14.5); Red Blood Cell (RBC) Count 4.31 10x6/uL (4.32-5.72)
[2022-02-15 13:37] LABS: ALT (SGPT) 11 U/L (8-55); AST (SGOT) 30 U/L (5-34); Alkaline Phosphatase 66 U/L (40-110); Anion Gap 14 mmol/L (10-20); BUN (Urea Nitrogen) 8 mg/dL (8.4-25.7); Bilirubin, Total 1.2 mg/dL (0.2-1.2); Calc. Creatinine Clearance 0 mL/min (70-130); Calcium 9.2 mg/dL (7.8-10.44); Carbon Dioxide 25 mmol/L (22-29); Chloride 96 mmol/L (98-107); Globulin 2.8 g/dL (2.4-3.5); Glucose 103 mg/dL (70-105); Potassium 5.6 mmol/L (3.5-5.1); Protein, Total 6.8 g/dL (6.0-8.3); Sodium 129 mmol/L (136-145)
[2022-02-15 22:16] LABS: SARS-CoV-2 PCR by NAA Not Detected (NotDetected)
== END 2022-02-15 12:00 | disposition home or self-care (01) ==
LOC: LABBT 11:59
PROVIDERS: ATTEND Specialist
DX: Z01.818 Encounter for other preprocedural examination (principal); Z20.822 Contact with and (suspected) exposure to COVID-19
CPT/HCPCS: 80053; 85025; U0003; U0005

== ENCOUNTER 2022-02-20 06:49 | Day surgery (SDC) | payer MEDICARE ==
[2022-02-14 14:11] VITALS: BMI 39.3
[2022-02-20] MEDS ORDERED: Ketorolac Tromethamine 30 MG/ML VIAL ONE ×2 (07:25)
[2022-02-20] MEDS ORDERED: Acetaminophen 500 MG TAB ONE (07:25)
[2022-02-20] MEDS ORDERED: Lidocaine 1% w/Epinephrine 1:100K 20 ML VIAL ONE (08:08)
[2022-02-20] MEDS ORDERED: Bupivacaine 0.25% HCL 30 ML VIAL ONE (08:08)
[2022-02-20] MEDS ORDERED: Ketamine 50 MG/ML (10ML VIAL) ONE (08:29)
[2022-02-20] MEDS ORDERED: Midazolam HCl 2 mg/2 ml Vial ONE (08:29)
[2022-02-20] MEDS ORDERED: ceFAZolin (BATCH) 2 GM/100 ML BAG ONE (08:29)
[2022-02-20] MEDS ORDERED: Fentanyl 100 MCG/2 ML VIAL ONE ×2 (08:29→09:52)
[2022-02-20] MEDS ORDERED: Dexamethasone 20 MG/5 ML VIAL ONE (08:40)
[2022-02-20] MEDS ORDERED: PHENYLEPHRINE-NS 100 MCG/ML 10 ML SYRINGE ONE (08:40)
[2022-02-20] MEDS ORDERED: Succinylcholine 200 MG/10 ml SYRINGE FS ONE (08:40)
[2022-02-20] MEDS ORDERED: Rocuronium Bromide 10 MG/ML (10ML VIAL) ONE (08:40)
[2022-02-20] MEDS ORDERED: PROPOFOL 200 MG/20 ML VIAL ONE (08:40)
[2022-02-20] MEDS ORDERED: Ondansetron PF 4 MG/2 ML Vial ONE (08:40)
[2022-02-20] MEDS ORDERED: ePHEDrine 50 MG/ML VIAL ONE (08:40)
[2022-02-20] MEDS ORDERED: Glycopyrrolate 0.2 MG/ML 5 ML SYRINGE ONE (08:40)
[2022-02-20] MEDS ORDERED: Naloxone HCl 0.4 mg/ml Vial ONE (08:40)
[2022-02-20] MEDS ORDERED: Lidocaine 1% PF 5 ML VIAL ONE (08:40)
[2022-02-20] MEDS ORDERED: Fentanyl 250 MCG/5 ML VIAL ONE (09:17)
[2022-02-20] MEDS ORDERED: SUGAMMADEX SODIUM 200 MG/2 ML VIAL ONE (09:28)
[2022-02-20] MEDS ORDERED: hydrALAZINE 20 MG/ML VIAL ONE (09:46)
[2022-02-20] MEDS ORDERED: Non-Formulary Medication 1 EACH PO PRN (09:54)
[2022-02-20] MEDS ORDERED: hydrALAZINE 20 MG/ML VIAL SLOW IVP PRN (09:55)
[2022-02-20] MEDS ORDERED: Promethazine HCl 25 MG/ML VIAL IM/IV PRN (10:00)
[2022-02-20] MEDS ORDERED: Ondansetron HCl/PF 4 MG/2 ML Vial IVP PRN (10:00)
[2022-02-20] MEDS ORDERED: HYDROmorphone 2 MG/ML VIAL SLOW IVP PRN (10:00)
[2022-02-20] MEDS ORDERED: Meperidine HCl/PF 25 MG/ML VIAL SLOW IVP PRN (10:00)
[2022-02-20] MEDS ORDERED: HYDROmorphone 0.5 MG/0.5 ML SYRINGE ONE ×3 (10:07→10:40)
[2022-02-20] MEDS ORDERED: HYDROcodone/Acetaminophen 5/325 mg Tablet ONE (11:49)
== END 2022-02-20 12:40 | disposition home or self-care (01) ==
LOC: SDC 06:49
PROVIDERS: ATTEND Specialist
PROC: 0FT44ZZ Resection of Gallbladder, Percutaneous Endoscopic Approach (ICD-10-PCS; principal; 2022-02-20)
DX: K80.10 Calculus of gallbladder with chronic cholecystitis without obstruction (principal); K40.20 Bilateral inguinal hernia, without obstruction or gangrene, not specified as recurrent; Z79.890 Hormone replacement therapy; Z79.899 Other long term (current) drug therapy; Z88.0 Allergy status to penicillin; Z88.1 Allergy status to other antibiotic agents; Z88.6 Allergy status to analgesic agent; Z98.84 Bariatric surgery status
CPT/HCPCS: 47562; C1713; 88304; J0360; J0690; J1100; J1170; J1885; J2250; J2310; J2405; J2704; J3010; J3490; S0020

== ENCOUNTER 2022-04-08 13:46 | Emergency (ER) | payer MEDICARE ==
[2022-04-08 15:20] LABS: #Eosinphils 0.5 thou/uL (0.0-0.7); #Lymphocytes 1.8 thou/uL (1.20-3.40); #Monocytes 0.9 thou/uL (0.11-0.59); %Basophils 0.6 % (0.0-1.0); %Eosinophils 5.5 % (0.0-10.0); %Lymphocytes 21.4 % (21.0-51.0); %Monocytes 11.2 % (0.0-10.0); %Neutrophils 61.3 % (42.0-75.0); Hemoglobin 11.8 g/dL (14.0-18.0); Mean Corpuscular HGB CONC 32.1 g/dL (32.0-36.0); Mean Corpuscular Hemoglobin 34.6 pg (27.0-31.0); Mean Platelet Volume 7.1 fL (7.4-10.4); Platelet Count 253 thou/uL (130-400); RBC Distribution Width 14.6 % (11.5-14.5); Red Blood Cell (RBC) Count 3.43 mill/uL (4.70-6.10); White Blood Cell (WBC) Count 8.2 thou/uL (4.8-10.8)
[2022-04-08 15:38] LABS: ALT (SGPT) 12 U/L (8-55); AST (SGOT) 36 U/L (5-34); Albumin 3.3 g/dL (3.5-5.0); Alkaline Phosphatase 77 U/L (40-110); Anion Gap 13 mmol/L (10-20); BUN (Urea Nitrogen) 13 mg/dL (8.4-25.7); Bilirubin, Total 0.9 mg/dL (0.2-1.2); Calc. Creatinine Clearance 0 mL/min (70-130); Calcium 8.5 mg/dL (7.8-10.44); Carbon Dioxide 25 mmol/L (22-29); Chloride 101 mmol/L (98-107); Globulin 3.3 g/dL (2.4-3.5); Glucose 115 mg/dL (70-105); Potassium 5.3 mmol/L (3.5-5.1); Protein, Total 6.6 g/dL (6.0-8.3); Sodium 134 mmol/L (136-145)
[2022-04-08 16:34] LABS: Acetaminophen Less than 10.0 mcg/mL (10.0-30.0); Alcohol Less than 10 mg/dL (Less than 10); CK (CPK) 34 U/L (30-200); Salicylate Less than 8.0 mg/dL (15.0-30.0)
[2022-04-08 16:56] LABS: Bilirubin Negative (Negative); Blood, Urine Negative (Negative); Clarity Clear (Clear); Glucose, Urine (Dipstick) Normal (Negative); Ketone, Urine Negative (Negative); Leukocyte Negative Leu/uL (Negative); Nitrite Negative (Negative); Protein, Urine (Dipstick) Negative (Neg-Trace); Specific Gravity, Urine 1.006 (1.002-1.036); Urobilinogen Normal mg/dL (Less than 2); pH, Urine 7.5 (5.0-9.0)
[2022-04-08 17:05] LABS: Amphetamine Not Detected (NotDetected); Barbiturates Screen Not Detected (NotDetected); Benzodiazepine Screen Not Detected (NotDetected); Cocaine Metabolite Screen Not Detected (NotDetected); Methadone Not Detected (NotDetected); Methamphetamine Not Detected (NotDetected); Opiate Screen Not Detected (NotDetected); Oxycodone Screen Not Detected (NotDetected); Phencyclidine (PCP) Not Detected (NotDetected); THC/Cannabinoid Screen Not Detected (NotDetected); Tricyclic Screen Detected (NotDetected)
[2022-04-08] MEDS ORDERED: HYDROcodone/Acetaminophen 5/325 mg Tablet ONE (18:12)
== END 2022-04-08 18:49 | disposition home or self-care (01) ==
LOC: ERS 13:46
DX: R41.0 Disorientation, unspecified (principal); E87.5 Hyperkalemia; E87.1 Hypo-osmolality and hyponatremia; I10 Essential (primary) hypertension; I48.91 Unspecified atrial fibrillation; E03.9 Hypothyroidism, unspecified; F17.220 Nicotine dependence, chewing tobacco, uncomplicated; Z79.890 Hormone replacement therapy; Z79.899 Other long term (current) drug therapy
CPT/HCPCS: 36415; 70450; 71045; 80053; 80306; 80307; 81003; 82140; 82550; 84443; 85025; 93005

== ENCOUNTER 2022-04-12 12:10 | Outpatient (CLI) | payer MEDICARE ==
[2022-04-12 14:33] LABS: #Basophils 0.1 10x3/uL (0.0-0.2); #Eosinphils 0.4 10x3/uL (0.0-0.5); #Monocytes 0.8 10x3/uL (0.0-1.1); #Neutrophils 4.3 10x3/uL (1.5-8.4); %Basophils 1.4 % (0.0-2.0); %Eosinophils 5.7 % (0.0-6.0); %Lymphocytes 21.7 % (18.0-47.0); %Monocytes 11.3 % (0.0-10.0); %Neutrophils 59.5 % (40.0-75.0); Hemoglobin 11.6 g/dL (13.5-17.5); Mean Corpuscular Volume 102.8 fl (81.2-95.1); Platelet Count 298 10x3/uL (150-450); RBC Distribution Width 15.3 % (11.5-14.5); Red Blood Cell (RBC) Count 3.52 10x6/uL (4.32-5.72); White Blood Cell (WBC) Count 7.2 10x3/uL (3.5-10.5)
[2022-04-12 14:56] LABS: Anion Gap 13 mmol/L (10-20); BUN (Urea Nitrogen) 12 mg/dL (8.4-25.7); Calc. Creatinine Clearance 0 mL/min (70-130); Calcium 8.9 mg/dL (7.8-10.44); Carbon Dioxide 28 mmol/L (22-29); Chloride 101 mmol/L (98-107); Glucose 77 mg/dL (70-105); Potassium 5.4 mmol/L (3.5-5.1); Sodium 137 mmol/L (136-145)
== END 2022-04-12 12:11 | disposition home or self-care (01) ==
LOC: LABBT 12:10
PROVIDERS: ATTEND Specialist
DX: Z01.818 Encounter for other preprocedural examination (principal); K40.20 Bilateral inguinal hernia, without obstruction or gangrene, not specified as recurrent; Z20.822 Contact with and (suspected) exposure to COVID-19
CPT/HCPCS: 80048; 85025; 93005; U0003; U0005; 93010

== ENCOUNTER 2022-04-17 06:06 | Day surgery (SDC) | payer MEDICARE ==
[2022-04-15 15:03] VITALS: BMI 40.0
[2022-04-17] MEDS ORDERED: Ketorolac Tromethamine 30 MG/ML VIAL ONE (06:40)
[2022-04-17] MEDS ORDERED: Acetaminophen 500 MG TAB ONE (06:45)
[2022-04-17] MEDS ORDERED: Lidocaine 1% w/Epinephrine 1:100K 20 ML VIAL ONE (06:54)
[2022-04-17] MEDS ORDERED: Bupivacaine 0.25% HCL 30 ML VIAL ONE (06:54)
[2022-04-17] MEDS ORDERED: SUGAMMADEX SODIUM 200 MG/2 ML VIAL ONE (06:55)
[2022-04-17] MEDS ORDERED: fentaNYL Citrate/PF 100 MCG/2 ML SYRINGE ONE (06:55)
[2022-04-17] MEDS ORDERED: HYDROmorphone 0.5 MG/0.5 ML SYRINGE ONE (06:55)
[2022-04-17] MEDS ORDERED: Sodium Chloride 0.9% 100 ML ONE (07:20)
[2022-04-17] MEDS ORDERED: CEFAZOLIN 2 GM VIAL ONE (07:20)
[2022-04-17] MEDS ORDERED: Midazolam HCl 2 mg/2 ml Vial ONE (07:21)
[2022-04-17] MEDS ORDERED: PHENYLEPHRINE-NS 100 MCG/ML 10 ML SYRINGE ONE (07:32)
[2022-04-17] MEDS ORDERED: Lidocaine 1% PF 5 ML VIAL ONE (07:32)
[2022-04-17] MEDS ORDERED: Ondansetron PF 4 MG/2 ML Vial ONE (07:32)
[2022-04-17] MEDS ORDERED: Dexamethasone 20 MG/5 ML VIAL ONE (07:32)
[2022-04-17] MEDS ORDERED: Rocuronium Bromide 10 MG/ML (10ML VIAL) ONE (07:32)
[2022-04-17] MEDS ORDERED: PROPOFOL 200 MG/20 ML VIAL ONE (07:32)
[2022-04-17] MEDS ORDERED: Fentanyl 100 MCG/2 ML VIAL ONE (11:13)
== END 2022-04-17 15:40 | disposition home or self-care (01) ==
LOC: SDC 06:06
PROVIDERS: ATTEND Specialist
PROC: 0YUA4JZ Supplement Bilateral Inguinal Region with Synthetic Substitute, Percutaneous Endoscopic Approach (ICD-10-PCS; principal; 2022-04-17)
PROC: 8E0W4CZ Robotic Assisted Procedure of Trunk Region, Percutaneous Endoscopic Approach (ICD-10-PCS; 2022-04-17)
DX: K40.30 Unilateral inguinal hernia, with obstruction, without gangrene, not specified as recurrent (principal); K40.90 Unilateral inguinal hernia, without obstruction or gangrene, not specified as recurrent; K66.0 Peritoneal adhesions (postprocedural) (postinfection); E66.01 Morbid (severe) obesity due to excess calories; Z68.41 Body mass index [BMI] 40.0-44.9, adult; Z98.84 Bariatric surgery status; Z79.899 Other long term (current) drug therapy; Z79.890 Hormone replacement therapy; Z88.0 Allergy status to penicillin; Z88.1 Allergy status to other antibiotic agents; Z88.6 Allergy status to analgesic agent; N17.9 Acute kidney failure, unspecified; I48.21 Permanent atrial fibrillation; E87.1 Hypo-osmolality and hyponatremia; E87.2 Acidosis; Z20.822 Contact with and (suspected) exposure to COVID-19; E87.5 Hyperkalemia; G89.29 Other chronic pain; E03.9 Hypothyroidism, unspecified; F17.210 Nicotine dependence, cigarettes, uncomplicated; F32.A Depression, unspecified; N50.89 Other specified disorders of the male genital organs; N18.2 Chronic kidney disease, stage 2 (mild); I12.9 Hypertensive chronic kidney disease with stage 1 through stage 4 chronic kidney disease, or unspecified chronic kidney disease; J45.909 Unspecified asthma, uncomplicated; E86.9 Volume depletion, unspecified; R74.01 Elevation of levels of liver transaminase levels; I87.2 Venous insufficiency (chronic) (peripheral); E86.0 Dehydration; F10.20 Alcohol dependence, uncomplicated; Z71.6 Tobacco abuse counseling; F41.9 Anxiety disorder, unspecified; E86.1 Hypovolemia; E16.2 Hypoglycemia, unspecified; R73.9 Hyperglycemia, unspecified; Z28.21 Immunization not carried out because of patient refusal; Z87.11 Personal history of peptic ulcer disease; Z88.8 Allergy status to other drugs, medicaments and biological substances; Z98.890 Other specified postprocedural states; Z90.49 Acquired absence of other specified parts of digestive tract; Z82.49 Family history of ischemic heart disease and other diseases of the circulatory system
CPT/HCPCS: 49650; C1781 ×2; 36415; 36416; 71275; 74177; 80053; 80202; 80306; 80307; 81003; 81015; 82533; 82947; 83605; 83735; 84100; 84145; 84443; 84484; 85025; 86850; 86900; 86901; 87040; 87086; 93005; 94644; 96365; 96367; 96374; 96375; J0610; J0690; J0692; J1100; J1170; J1644; J1885; J2250; J2405; J2704; J3010; J3370; J3490; J7042; J7050; J7070; J7611; J7999; S0020; U0002

== ENCOUNTER 2022-04-19 12:22 | Inpatient (IN) | payer MEDICARE ==
[~2022-04-19 12:22] MED LIST changes: -Dexamethasone 20 MG/5 ML VIAL ONE; +Iopamidol-370 76% 500 ML 1 ML ONE; -Lidocaine 1% PF 5 ML VIAL ONE; -Ondansetron PF 4 MG/2 ML Vial ONE; -PROPOFOL 200 MG/20 ML VIAL ONE
[2022-04-19 13:10] LABS: #Lymphocytes 0.9 thou/uL (1.20-3.40); #Monocytes 1.3 thou/uL (0.11-0.59); #Neutrophils 12.7 thou/uL (1.40-6.50); %Basophils 0.1 % (0.0-1.0); %Eosinophils 0.1 % (0.0-10.0); %Lymphocytes 5.8 % (21.0-51.0); %Monocytes 8.4 % (0.0-10.0); %Neutrophils 85.6 % (42.0-75.0); Hemoglobin 13.4 g/dL (14.0-18.0); Mean Corpuscular HGB CONC 31.7 g/dL (32.0-36.0); Mean Corpuscular Hemoglobin 34.7 pg (27.0-31.0); Mean Platelet Volume 6.9 fL (7.4-10.4); Platelet Count 276 thou/uL (130-400); Red Blood Cell (RBC) Count 3.87 mill/uL (4.70-6.10); White Blood Cell (WBC) Count 14.8 thou/uL (4.8-10.8)
[2022-04-19 13:28] LABS: MDiff Complete? YES; Macrocytosis SLIGHT = 6-15 cells (100X) (0-5/hpf); Platelet Morphology Comment Appears Adequate
[2022-04-19] MEDS ORDERED: Metoprolol Tartrate 5 MG/5 ML VIAL ONE (13:59)
[2022-04-19 14:38] LABS: ALT (SGPT) 22 U/L (8-55); AST (SGOT) 57 U/L (5-34); Albumin 3.8 g/dL (3.5-5.0); Alkaline Phosphatase 99 U/L (40-110); Anion Gap 18 mmol/L (10-20); BUN (Urea Nitrogen) 39 mg/dL (8.4-25.7); Bilirubin, Total 1.9 mg/dL (0.2-1.2); Calc. Creatinine Clearance 0 mL/min (70-130); Calcium 9.1 mg/dL (7.8-10.44); Carbon Dioxide 19 mmol/L (22-29); Chloride 98 mmol/L (98-107); Globulin 3.5 g/dL (2.4-3.5); Glucose 95 mg/dL (70-105); Potassium 7.1 mmol/L (3.5-5.1); Protein, Total 7.3 g/dL (6.0-8.3); Sodium 128 mmol/L (136-145)
[2022-04-19] MEDS ORDERED: Albuterol Sulfate 2.5 mg/3 ml Neb ONE (15:45)
[2022-04-19] MEDS ORDERED: Sodium Bicarb 50 MEQ/50 ML Abboject 8.4% SYRINGE ONE (15:49)
[2022-04-19] MEDS ORDERED: CALCIUM GLUC 1GM/NS 50ML BAG ONE (15:49)
[2022-04-19] MEDS ORDERED: Cefepime 2 GM VIAL ONE (15:49)
[2022-04-19 16:12] LABS: Lactic Acid 1.4 mmol/L (0.5-2.2)
[2022-04-19] MEDS ORDERED: HumaLOG 300 UNITS/3 ML VIAL SC PRN ×2 (17:21)
[2022-04-19] MEDS ORDERED: Dextrose 50% Abboject 50 ML SYRINGE SLOW IVP PRN (17:21)
[2022-04-19] MEDS ORDERED: Acetaminophen 325 MG TAB PO PRN (17:21)
[2022-04-19] MEDS ORDERED: Dextrose 5% in Water 1,000 ML IV PRN (17:21)
[2022-04-19] MEDS ORDERED: Ondansetron PF 4 MG/2 ML Vial IVP PRN (17:21)
[2022-04-19 17:35] LABS: Troponin I Less than 0.010 ng/mL (< 0.028)
[2022-04-19] MEDS ORDERED: Acetaminophen 325 MG TAB ONE (17:42)
[2022-04-19 17:59] LABS: Bacteria/HPF None Seen HPF (None Seen); Bilirubin Negative (Negative); Blood, Urine Trace (Negative); Clarity Clear (Clear); Glucose, Urine (Dipstick) Normal (Negative); Ketone, Urine Negative (Negative); Leukocyte Negative Leu/uL (Negative); Nitrite Negative (Negative); Protein, Urine (Dipstick) 20 mg/dL (Neg-Trace); Specific Gravity, Urine 1.044 (1.002-1.036); Squamous Epithelial None Seen HPF (0-3); Urobilinogen Normal mg/dL (Less than 2); WBC/HPF 0-3 HPF (0-3)
[2022-04-19 17:59] LABS: Anion Gap 17 mmol/L (10-20); BUN (Urea Nitrogen) 36 mg/dL (8.4-25.7); Calc. Creatinine Clearance 0 mL/min (70-130); Calcium 9.1 mg/dL (7.8-10.44); Carbon Dioxide 23 mmol/L (22-29); Chloride 96 mmol/L (98-107); Glucose 122 mg/dL (70-105); Potassium 5.5 mmol/L (3.5-5.1); Sodium 130 mmol/L (136-145)
[2022-04-19] MEDS ORDERED: VANCOMYCIN 2 GRAM/500 ML BAG 2 GM in Premix Bag 1 BAG IVPB SCH (18:00)
[2022-04-19] MEDS ORDERED: LOKELMA 10 GM PACKET PO SCH (18:00)
[2022-04-19] MEDS ORDERED: Sodium Bicarb 50 MEQ/50 ML Abboject 8.4% SYRINGE IVP SCH (18:00)
[2022-04-19] MEDS ORDERED: Calcium Gluconate 100 MG/ML 10 ML IVPB SCH ×2 (18:00→18:15)
[2022-04-19 18:17] LABS: Troponin I Less than 0.010 ng/mL (< 0.028)
[2022-04-19] MEDS ORDERED: hydrALAZINE 20 MG/ML VIAL SLOW IVP PRN (18:47)
[2022-04-19] MEDS: CALCIUM GLUC 1GM/NS 50ML 1 GM in Premix Bag 1 BAG IVPB SCH ×2 (18:58→21:36)
[2022-04-19] MEDS ORDERED: HYDROcodone/Acetaminophen 5/325 mg Tablet ONE (19:05)
[2022-04-19] MEDS: HYDROcodone/Acetaminophen 5/325 mg Tablet PO PRN ×2 (19:20→23:35)
[2022-04-19 20:21] LABS: SARS-CoV-2 NAA Rapid Test Not Detected (NotDetected)
[2022-04-19 21:12] LABS: Troponin I Less than 0.010 ng/mL (< 0.028)
[2022-04-19 21:56] LABS: Anion Gap 23 mmol/L (10-20); BUN (Urea Nitrogen) 37 mg/dL (8.4-25.7); Calc. Creatinine Clearance 0 mL/min (70-130); Calcium 9.3 mg/dL (7.8-10.44); Carbon Dioxide 19 mmol/L (22-29); Chloride 96 mmol/L (98-107); Glucose 90 mg/dL (70-105); Sodium 132 mmol/L (136-145)
[2022-04-19] MEDS: Metoprolol Tartrate 5 MG/5 ML VIAL IVP PRN ×2 (22:02→22:39)
[2022-04-19] MEDS: Heparin 5,000 UNITS/ML VIAL SC SCH (22:05)
[2022-04-20 00:39] LABS: Anion Gap 16 mmol/L (10-20); BUN (Urea Nitrogen) 35 mg/dL (8.4-25.7); Calc. Creatinine Clearance 110 mL/min (70-130); Calcium 8.9 mg/dL (7.8-10.44); Carbon Dioxide 22 mmol/L (22-29); Chloride 98 mmol/L (98-107); Glucose 92 mg/dL (70-105); Potassium 5.9 mmol/L (3.5-5.1); Sodium 130 mmol/L (136-145)
[2022-04-20 00:45] LABS: Troponin I Less than 0.010 ng/mL (< 0.028)
[2022-04-20 02:17] LABS: Magnesium 2.3 mg/dL (1.6-2.6)
[2022-04-20 03:26] LABS: #Basophils 0.1 thou/uL (0.0-0.2); #Eosinphils 0.2 thou/uL (0.0-0.7); #Monocytes 1.3 thou/uL (0.11-0.59); %Basophils 0.5 % (0.0-1.0); %Eosinophils 1.5 % (0.0-10.0); %Lymphocytes 9.1 % (21.0-51.0); %Monocytes 12.6 % (0.0-10.0); %Neutrophils 76.3 % (42.0-75.0); Hemoglobin 12.8 g/dL (14.0-18.0); Mean Corpuscular HGB CONC 31.5 g/dL (32.0-36.0); Mean Corpuscular Hemoglobin 34.7 pg (27.0-31.0); Mean Platelet Volume 6.9 fL (7.4-10.4); Platelet Count 199 thou/uL (130-400); RBC Distribution Width 13.9 % (11.5-14.5); Red Blood Cell (RBC) Count 3.69 mill/uL (4.70-6.10); White Blood Cell (WBC) Count 10.5 thou/uL (4.8-10.8)
[2022-04-20 03:47] LABS: ALT (SGPT) 16 U/L (8-55); AST (SGOT) 35 U/L (5-34); Albumin 3.3 g/dL (3.5-5.0); Alkaline Phosphatase 90 U/L (40-110); Anion Gap 15 mmol/L (10-20); BUN (Urea Nitrogen) 33 mg/dL (8.4-25.7); Bilirubin, Total 1.7 mg/dL (0.2-1.2); Calc. Creatinine Clearance 126 mL/min (70-130); Calcium 8.8 mg/dL (7.8-10.44); Carbon Dioxide 18 mmol/L (22-29); Chloride 101 mmol/L (98-107); Globulin 3.1 g/dL (2.4-3.5); Glucose 87 mg/dL (70-105); Potassium 5.4 mmol/L (3.5-5.1); Protein, Total 6.4 g/dL (6.0-8.3); Sodium 129 mmol/L (136-145)
[2022-04-20] MEDS: HYDROcodone/Acetaminophen 5/325 mg Tablet PO PRN ×3 (06:24→20:11)
[2022-04-20] MEDS ORDERED: Sodium Chloride 0.9% 1,000 ML IV SCH (07:30)
[2022-04-20 07:31] LABS: Glucose 85 mg/dL (70-105)
[2022-04-20 08:09] LABS: Acetaminophen Less than 10.0 mcg/mL (10.0-30.0); Alcohol Less than 10 mg/dL (Less than 10); Salicylate Less than 8.0 mg/dL (15.0-30.0)
[2022-04-20] MEDS ORDERED: Vancomycin 1 GM in Premix Bag 1 BAG IVPB SCH (09:00)
[2022-04-20 09:08] VITALS: BMI 41.7
[2022-04-20] MEDS: Heparin 5,000 UNITS/ML VIAL SC SCH ×2 (09:44→21:50)
[2022-04-20] MEDS: Cefepime 2 GM in Sodium Chloride 0.9% 100 ML IVPB SCH ×2 (09:44→20:13)
[2022-04-20] MEDS: VANCOMYCIN 2 GRAM/500 ML BAG 2 GM in Premix Bag 1 BAG IVPB SCH ×2 (10:50→17:24)
[2022-04-20 12:05] LABS: Chloride 101 mmol/L (98-107); Potassium 6.2 mmol/L (3.5-5.1); Sodium 129 mmol/L (136-145)
[2022-04-20] MEDS ORDERED: Metoprolol Tartrate 50 MG TAB PO SCH (12:30)
[2022-04-20 12:37] LABS: Glucose 78 mg/dL (70-105)
[2022-04-20 12:38] LABS: Anion Gap 17 mmol/L (10-20); Carbon Dioxide 15 mmol/L (22-29)
[2022-04-20 12:40] LABS: Calc. Creatinine Clearance 153 mL/min (70-130)
[2022-04-20 12:41] LABS: BUN (Urea Nitrogen) 24 mg/dL (8.4-25.7)
[2022-04-20 13:36] LABS: Amphetamine Not Detected (NotDetected); Barbiturates Screen Not Detected (NotDetected); Benzodiazepine Screen Not Detected (NotDetected); Cocaine Metabolite Screen Not Detected (NotDetected); Methadone Not Detected (NotDetected); Methamphetamine Not Detected (NotDetected); Opiate Screen Detected (NotDetected); Oxycodone Screen Not Detected (NotDetected); Phencyclidine (PCP) Not Detected (NotDetected); THC/Cannabinoid Screen Not Detected (NotDetected); Tricyclic Screen Detected (NotDetected)
[2022-04-20] MEDS: LOKELMA 10 GM PACKET PO SCH ×2 (16:47→21:49)
[2022-04-20] MEDS: Sodium Bicarbonate 150 MEQ in Dextrose 5% in Water 1,000 ML IV SCH (17:24)
[2022-04-20 18:49] LABS: Anion Gap 13 mmol/L (10-20); BUN (Urea Nitrogen) 21 mg/dL (8.4-25.7); Calc. Creatinine Clearance 187 mL/min (70-130); Calcium 8.2 mg/dL (7.8-10.44); Carbon Dioxide 24 mmol/L (22-29); Chloride 100 mmol/L (98-107); Glucose 64 mg/dL (70-105); Potassium 4.5 mmol/L (3.5-5.1); Sodium 132 mmol/L (136-145)
[2022-04-20] MEDS: Metoprolol Tartrate 50 MG TAB PO SCH (20:12)
[2022-04-20] MEDS: Senokot S 8.6-50 MG TAB PO SCH (20:12)
[2022-04-20 21:45] LABS: Glucose 70 mg/dL (70-105)
[2022-04-20] MEDS: busPIRone HCl 10 MG TAB PO SCH (21:50)
[2022-04-21 01:30] LABS: Vancomycin, Trough 27.2 ug/mL
[2022-04-21] MEDS: HYDROcodone/Acetaminophen 5/325 mg Tablet PO PRN ×6 (01:43→22:05)
[2022-04-21] MEDS: Levothyroxine Sodium 125 MCG TAB PO SCH (06:16)
[2022-04-21] MEDS: Heparin 5,000 UNITS/ML VIAL SC SCH ×3 (06:17→20:29)
[2022-04-21 08:14] LABS: Mean Corpuscular Hemoglobin 34.9 pg (27.0-31.0); Platelet Count 215 thou/uL (130-400); RBC Distribution Width 13.7 % (11.5-14.5); Red Blood Cell (RBC) Count 3.45 mill/uL (4.70-6.10); White Blood Cell (WBC) Count 8.7 thou/uL (4.8-10.8)
[2022-04-21] MEDS: Senokot S 8.6-50 MG TAB PO SCH ×2 (08:31→20:28)
[2022-04-21] MEDS: Cefepime 2 GM in Sodium Chloride 0.9% 100 ML IVPB SCH (08:31)
[2022-04-21 08:32] LABS: ALT (SGPT) 11 U/L (8-55); AST (SGOT) 20 U/L (5-34); Alkaline Phosphatase 70 U/L (40-110); Anion Gap 13 mmol/L (10-20); BUN (Urea Nitrogen) 17 mg/dL (8.4-25.7); Bilirubin, Total 1.1 mg/dL (0.2-1.2); Calc. Creatinine Clearance 211 mL/min (70-130); Carbon Dioxide 27 mmol/L (22-29); Chloride 97 mmol/L (98-107); Globulin 2.7 g/dL (2.4-3.5); Glucose 64 mg/dL (70-105); Potassium 4.4 mmol/L (3.5-5.1); Protein, Total 5.7 g/dL (6.0-8.3); Sodium 133 mmol/L (136-145)
[2022-04-21] MEDS: busPIRone HCl 10 MG TAB PO SCH ×2 (08:32→20:28)
[2022-04-21] MEDS: LOKELMA 10 GM PACKET PO SCH ×3 (08:32→20:28)
[2022-04-21] MEDS: Metoprolol Tartrate 50 MG TAB PO SCH ×2 (08:32→20:28)
[2022-04-21] MEDS: Sodium Bicarbonate 150 MEQ in Dextrose 5% in Water 1,000 ML IV SCH (08:35)
[2022-04-21 08:50] LABS: Band 7 % (5-11); Eosinophils 6 % (0-10); Lymphocytes 18 % (21-51); MDiff Complete? YES; Monocytes 14 % (0-10); Neutrophil 53 % (42-75); Platelet Morphology Comment Appears Adequate; RBC Morphology Normal; Reactive Lymphocytes 2 % (0-10)
[2022-04-21] MEDS ORDERED: VANCOMYCIN 2 GRAM/500 ML BAG 2 GM in Premix Bag 1 BAG IVPB SCH (10:00)
[2022-04-21 12:04] LABS: Glucose 58 mg/dL (70-105)
[2022-04-21 13:02] LABS: Glucose 76 mg/dL (70-105)
[2022-04-21 17:42] LABS: Glucose 53 mg/dL (70-105)
[2022-04-21] MEDS ORDERED: Dextrose 5 % And 0.9 % NaCl 1,000 ML IV SCH (18:15)
[2022-04-21 18:44] LABS: Glucose 79 mg/dL (70-105)
[2022-04-21 21:14] LABS: Glucose 70 mg/dL (70-105)
[2022-04-21] MEDS ORDERED: Thiamine 100 MG TAB PO SCH (21:30)
[2022-04-21] MEDS ORDERED: Folic Acid 1 MG TAB PO SCH (21:30)
[2022-04-22 01:23] LABS: #Eosinphils 0.3 thou/uL (0.0-0.7); #Lymphocytes 1.6 thou/uL (1.20-3.40); #Monocytes 0.9 thou/uL (0.11-0.59); #Neutrophils 4.5 thou/uL (1.40-6.50); %Basophils 0.6 % (0.0-1.0); %Eosinophils 4.5 % (0.0-10.0); %Lymphocytes 21.1 % (21.0-51.0); %Monocytes 12.8 % (0.0-10.0); Hemoglobin 13.6 g/dL (14.0-18.0); Mean Corpuscular HGB CONC 31.1 g/dL (32.0-36.0); Mean Corpuscular Hemoglobin 33.5 pg (27.0-31.0); Mean Platelet Volume 6.9 fL (7.4-10.4); Platelet Count 183 thou/uL (130-400); RBC Distribution Width 13.8 % (11.5-14.5); Red Blood Cell (RBC) Count 4.04 mill/uL (4.70-6.10); White Blood Cell (WBC) Count 7.4 thou/uL (4.8-10.8)
[2022-04-22 01:28] LABS: Glucose 69 mg/dL (70-105)
[2022-04-22] MEDS: HYDROcodone/Acetaminophen 5/325 mg Tablet PO PRN ×4 (04:12→19:45)
[2022-04-22] MEDS: Levothyroxine Sodium 125 MCG TAB PO SCH (05:24)
[2022-04-22] MEDS: Heparin 5,000 UNITS/ML VIAL SC SCH ×3 (05:24→21:21)
[2022-04-22 06:42] LABS: ALT (SGPT) 10 U/L (8-55); AST (SGOT) 18 U/L (5-34); Albumin 3.1 g/dL (3.5-5.0); Alkaline Phosphatase 71 U/L (40-110); Anion Gap 16 mmol/L (10-20); BUN (Urea Nitrogen) 12 mg/dL (8.4-25.7); Calc. Creatinine Clearance 226 mL/min (70-130); Calcium 8.4 mg/dL (7.8-10.44); Carbon Dioxide 23 mmol/L (22-29); Chloride 99 mmol/L (98-107); Globulin 2.8 g/dL (2.4-3.5); Glucose 68 mg/dL (70-105); Magnesium 1.9 mg/dL (1.6-2.6); Phosphorus 2.6 mg/dL (2.3-4.7); Potassium 4.2 mmol/L (3.5-5.1); Protein, Total 5.9 g/dL (6.0-8.3); Sodium 134 mmol/L (136-145)
[2022-04-22] MEDS: Thiamine 100 MG TAB PO SCH (09:03)
[2022-04-22] MEDS: busPIRone HCl 10 MG TAB PO SCH ×2 (09:03→19:44)
[2022-04-22] MEDS: Metoprolol Tartrate 50 MG TAB PO SCH ×2 (09:03→19:45)
[2022-04-22] MEDS: Multivit, Therapeutic 1 TAB PO SCH (09:03)
[2022-04-22] MEDS: Folic Acid 1 MG TAB PO SCH (09:03)
[2022-04-22] MEDS: Senokot S 8.6-50 MG TAB PO SCH ×2 (09:03→19:46)
[2022-04-22 09:32] LABS: Glucose 74 mg/dL (70-105)
[2022-04-22 16:27] LABS: Glucose 102 mg/dL (70-105)
[2022-04-22] MEDS ORDERED: Electrolyte Replacement Protocol 1 EACH FS SCH (18:30)
[2022-04-22] MEDS ORDERED: Magnesium 2 GM/50 ML(in water) 2 GM in Premix Bag 1 BAG IVPB SCH (20:00)
[2022-04-22 20:31] LABS: Glucose 149 mg/dL (70-105)
[2022-04-22] MEDS ORDERED: Polyethylene Glycol 3350 17 GM Packet PO SCH (21:00)
[2022-04-22 23:35] LABS: Glucose 116 mg/dL (70-105)
[2022-04-23] MEDS: HYDROcodone/Acetaminophen 5/325 mg Tablet PO PRN ×4 (00:08→13:13)
[2022-04-23] MEDS: Levothyroxine Sodium 125 MCG TAB PO SCH (04:13)
[2022-04-23] MEDS: Heparin 5,000 UNITS/ML VIAL SC SCH ×2 (04:20→13:13)
[2022-04-23 04:47] LABS: #Basophils 0.1 thou/uL (0.0-0.2); #Eosinphils 0.3 thou/uL (0.0-0.7); #Monocytes 0.9 thou/uL (0.11-0.59); #Neutrophils 3.9 thou/uL (1.40-6.50); %Basophils 0.9 % (0.0-1.0); %Eosinophils 4.6 % (0.0-10.0); %Lymphocytes 27.2 % (21.0-51.0); %Monocytes 12.5 % (0.0-10.0); %Neutrophils 54.8 % (42.0-75.0); Hemoglobin 11.9 g/dL (14.0-18.0); Mean Corpuscular HGB CONC 32.3 g/dL (32.0-36.0); Mean Corpuscular Hemoglobin 34.3 pg (27.0-31.0); Mean Platelet Volume 6.3 fL (7.4-10.4); Platelet Count 268 thou/uL (130-400); RBC Distribution Width 13.5 % (11.5-14.5); Red Blood Cell (RBC) Count 3.47 mill/uL (4.70-6.10); White Blood Cell (WBC) Count 7.2 thou/uL (4.8-10.8)
[2022-04-23 05:10] LABS: ALT (SGPT) 10 U/L (8-55); AST (SGOT) 20 U/L (5-34); Albumin 2.9 g/dL (3.5-5.0); Alkaline Phosphatase 63 U/L (40-110); Anion Gap 13 mmol/L (10-20); BUN (Urea Nitrogen) 7 mg/dL (8.4-25.7); Bilirubin, Total 0.8 mg/dL (0.2-1.2); Calc. Creatinine Clearance 230 mL/min (70-130); Calcium 8.4 mg/dL (7.8-10.44); Carbon Dioxide 27 mmol/L (22-29); Chloride 98 mmol/L (98-107); Globulin 2.6 g/dL (2.4-3.5); Glucose 89 mg/dL (70-105); Protein, Total 5.5 g/dL (6.0-8.3); Sodium 134 mmol/L (136-145)
[2022-04-23 08:13] LABS: Glucose 91 mg/dL (70-105)
[2022-04-23] MEDS: busPIRone HCl 10 MG TAB PO SCH (08:50)
[2022-04-23] MEDS: Furosemide 40 MG TAB PO SCH ×2 (08:51→13:13)
[2022-04-23] MEDS: Senokot S 8.6-50 MG TAB PO SCH (08:52)
[2022-04-23] MEDS: Thiamine 100 MG TAB PO SCH (08:52)
[2022-04-23] MEDS: Multivit, Therapeutic 1 TAB PO SCH (08:52)
[2022-04-23] MEDS: Folic Acid 1 MG TAB PO SCH (08:52)
[2022-04-23] MEDS ORDERED: Metoprolol Tartrate 100 MG TAB PO SCH (09:00)
[2022-04-23 12:20] LABS: Glucose 101 mg/dL (70-105)
[2022-04-23 14:49] VITALS: BP 132/85; TEMP 98.2
== END 2022-04-23 15:37 | disposition home or self-care (01) | DRG 683 ==
LOC: ERS 12:22 → ERHOLD 15:47 → CCU 20:32 → T4-A 04-23 01:49
PROVIDERS: ADMIT Hospitalist; ATTEND Hospitalist
DX: N17.9 Acute kidney failure, unspecified (principal); I48.21 Permanent atrial fibrillation; Z68.41 Body mass index [BMI] 40.0-44.9, adult; E87.1 Hypo-osmolality and hyponatremia; E87.2 Acidosis; Z20.822 Contact with and (suspected) exposure to COVID-19; E87.5 Hyperkalemia; G89.29 Other chronic pain; E03.9 Hypothyroidism, unspecified; F17.210 Nicotine dependence, cigarettes, uncomplicated; E66.01 Morbid (severe) obesity due to excess calories; F32.A Depression, unspecified; N50.89 Other specified disorders of the male genital organs; N18.2 Chronic kidney disease, stage 2 (mild); I12.9 Hypertensive chronic kidney disease with stage 1 through stage 4 chronic kidney disease, or unspecified chronic kidney disease; J45.909 Unspecified asthma, uncomplicated; E86.9 Volume depletion, unspecified; R74.01 Elevation of levels of liver transaminase levels; I87.2 Venous insufficiency (chronic) (peripheral); E86.0 Dehydration; F10.20 Alcohol dependence, uncomplicated; Z71.6 Tobacco abuse counseling; F41.9 Anxiety disorder, unspecified; E86.1 Hypovolemia; E16.2 Hypoglycemia, unspecified; R73.9 Hyperglycemia, unspecified; Z28.21 Immunization not carried out because of patient refusal; Z98.84 Bariatric surgery status; Z87.11 Personal history of peptic ulcer disease; Z88.6 Allergy status to analgesic agent; Z88.1 Allergy status to other antibiotic agents; Z88.8 Allergy status to other drugs, medicaments and biological substances; Z98.890 Other specified postprocedural states; Z90.49 Acquired absence of other specified parts of digestive tract; Z82.49 Family history of ischemic heart disease and other diseases of the circulatory system; Z79.899 Other long term (current) drug therapy; Z79.890 Hormone replacement therapy
CPT/HCPCS: 36415; 36416; 71275; 74177; 80053; 80202; 80306; 80307; 81003; 81015; 82533; 83605; 83735; 84145; 84443; 84484; 85025; 86850; 86900; 86901; 87040; 87086; 93005; 94644; 96365; 96367; 96374; 96375; J0610; J0692; J1644; J3370; J3490; J7042; J7050; J7070; J7611; J7999; U0002

== ENCOUNTER 2022-09-03 11:42 | Outpatient (CLI) | payer MEDICARE ==
[2022-09-03 13:30] LABS: #Basophils 0.1 10x3/uL (0.0-0.2); #Eosinphils 0.6 10x3/uL (0.0-0.5); #Monocytes 0.8 10x3/uL (0.0-1.1); %Basophils 0.9 % (0.0-2.0); %Eosinophils 8.5 % (0.0-6.0); %Lymphocytes 19.3 % (18.0-47.0); %Monocytes 11.4 % (0.0-10.0); %Neutrophils 59.6 % (40.0-75.0); Hemoglobin 11.6 g/dL (13.5-17.5); Mean Corpuscular Hemoglobin 30.4 pg (27.0-33.0); Mean Corpuscular Volume 92.1 fl (81.2-95.1); Platelet Count 256 10x3/uL (150-450); RBC Distribution Width 14.3 % (11.5-14.5); Red Blood Cell (RBC) Count 3.82 10x6/uL (4.32-5.72); White Blood Cell (WBC) Count 6.7 10x3/uL (3.5-10.5)
[2022-09-03 13:54] LABS: Anion Gap 14 mmol/L (10-20); BUN (Urea Nitrogen) 16 mg/dL (8.4-25.7); Calc. Creatinine Clearance 0 mL/min (70-130); Calcium 8.9 mg/dL (7.8-10.44); Carbon Dioxide 27 mmol/L (22-29); Chloride 98 mmol/L (98-107); Estimated GFR 96; Glucose 76 mg/dL (70-105); Sodium 134 mmol/L (136-145)
== END 2022-09-03 11:43 | disposition home or self-care (01) ==
LOC: LABBT 11:42
PROVIDERS: ATTEND Specialist
DX: Z01.818 Encounter for other preprocedural examination (principal); K40.21 Bilateral inguinal hernia, without obstruction or gangrene, recurrent; K43.9 Ventral hernia without obstruction or gangrene; E66.01 Morbid (severe) obesity due to excess calories
CPT/HCPCS: 80048; 85025; 93005; 93010

== ENCOUNTER 2022-09-06 06:15 | Day surgery (SDC) | payer MEDICARE ==
[2022-09-04 13:42] VITALS: BMI 41.9
[2022-09-06] MEDS ORDERED: Acetaminophen 500 MG TAB ONE (06:41)
[2022-09-06] MEDS ORDERED: Ketorolac Tromethamine 30 MG/ML VIAL ONE ×2 (06:41→08:02)
[2022-09-06] MEDS ORDERED: Gabapentin 300 MG CAP ONE (06:43)
[2022-09-06] MEDS ORDERED: Levofloxacin 500 mg/D5W 100 ml Premix Bag ONE (06:43)
[2022-09-06] MEDS ORDERED: SUGAMMADEX SODIUM 200 MG/2 ML VIAL ONE ×2 (07:44→13:10)
[2022-09-06] MEDS ORDERED: fentaNYL Citrate/PF 100 MCG/2 ML SYRINGE ONE ×2 (07:44→12:37)
[2022-09-06] MEDS ORDERED: Sodium Chloride 0.9% 100 ML ONE (07:54)
[2022-09-06] MEDS ORDERED: Sodium Chloride 0.9% 10 ML ONE (07:54)
[2022-09-06] MEDS ORDERED: CEFAZOLIN 2 GM VIAL ONE (07:54)
[2022-09-06] MEDS ORDERED: Ondansetron PF 4 MG/2 ML Vial ONE (08:02)
[2022-09-06] MEDS ORDERED: Dexamethasone 20 MG/5 ML VIAL ONE (08:02)
[2022-09-06] MEDS ORDERED: Labetalol HCl 100 MG/20 ML VIAL ONE (08:02)
[2022-09-06] MEDS ORDERED: PROPOFOL 200 MG/20 ML VIAL ONE (08:02)
[2022-09-06] MEDS ORDERED: Rocuronium Bromide 10 MG/ML (10ML VIAL) ONE (08:02)
[2022-09-06] MEDS ORDERED: Bupivacaine/Epinephrine 0.25% 30 ML VIAL ONE ×2 (08:07→10:48)
[2022-09-06] MEDS ORDERED: Rocuronium Bromide 50 MG/5 ML VIAL ONE (10:15)
[2022-09-06] MEDS ORDERED: Albumin 5% 250 ML ONE (10:53)
[2022-09-06] MEDS ORDERED: Promethazine HCl 25 MG/ML VIAL IM PRN ×2 (13:47→13:48)
[2022-09-06] MEDS ORDERED: Ondansetron HCl/PF 4 MG/2 ML Vial IVP PRN (13:48)
[2022-09-06] MEDS ORDERED: FENTANYL 50 MCG/ML VIAL 50 MCG/ML VIAL ONE ×3 (13:52→15:33)
[2022-09-06] MEDS ORDERED: hydrALAZINE 20 MG/ML VIAL SLOW IVP SCH (14:00)
[2022-09-06] MEDS ORDERED: hydrALAZINE 20 MG/ML VIAL ONE (14:03)
[2022-09-06] MEDS ORDERED: Metoprolol Tartrate 5 MG/5 ML VIAL ONE ×2 (15:56→16:13)
[2022-09-06] MEDS ORDERED: HYDROcodone/Acetaminophen 5/325 mg Tablet ONE (19:38)
== END 2022-09-06 19:45 | disposition home or self-care (01) ==
LOC: SDC 06:15
PROVIDERS: ATTEND Specialist
PROC: 0WUF4JZ Supplement Abdominal Wall with Synthetic Substitute, Percutaneous Endoscopic Approach (ICD-10-PCS; principal; 2022-09-06)
PROC: 0YU64JZ Supplement Left Inguinal Region with Synthetic Substitute, Percutaneous Endoscopic Approach (ICD-10-PCS; 2022-09-06)
PROC: 8E0W4CZ Robotic Assisted Procedure of Trunk Region, Percutaneous Endoscopic Approach (ICD-10-PCS; 2022-09-06)
PROC: 0YU50JZ Supplement Right Inguinal Region with Synthetic Substitute, Open Approach (ICD-10-PCS; 2022-09-06)
DX: K43.9 Ventral hernia without obstruction or gangrene (principal); K40.21 Bilateral inguinal hernia, without obstruction or gangrene, recurrent; J45.909 Unspecified asthma, uncomplicated; E03.9 Hypothyroidism, unspecified; M10.9 Gout, unspecified; N40.0 Benign prostatic hyperplasia without lower urinary tract symptoms; M06.9 Rheumatoid arthritis, unspecified; I10 Essential (primary) hypertension; E66.01 Morbid (severe) obesity due to excess calories; Z68.41 Body mass index [BMI] 40.0-44.9, adult; Z87.891 Personal history of nicotine dependence; Z79.890 Hormone replacement therapy; Z79.899 Other long term (current) drug therapy; Z88.0 Allergy status to penicillin; Z88.1 Allergy status to other antibiotic agents; Z88.6 Allergy status to analgesic agent
CPT/HCPCS: 49520; 49651; 49652; 94660; C1776; C1781 ×2; J3010; P9045; J0360; J1100; J1885; J1956; J2405; J2704; J3490